=== PATIENT | female | born 1955 | race Caucasian/White ===

== ENCOUNTER 2016-06-12 16:32 | Emergency (ER) | payer SELFPAY ==
[2016-06-12 16:48] VITALS: BP 177/90
--- NOTE | 2016-06-12 17:38 | ER Document Report ---
ED Medical Screen (RME) - General Chief Complaint: Shoulder Pain Stated Complaint: LEFT SHOULDER PAIN Mode of Arrival: Ambulatory Information source: Patient Notes: Patient presents complaining of left shoulder and neck pain for the past 3 days. Patient denies any injury. Patient denies any chest pain, back pain or other symptoms. Patient denies any aggravating or alleviating factors. hx: Hypertension, gastric bypass TRAVEL OUTSIDE OF THE [place] IN LAST 30 DAYS: No - Related Data Allergies/Adverse Reactions: codeine [Codeine] Allergy (Verified 06/22/15 21:07) Penicillins Allergy (Verified 06/22/15 21:07) Past Medical History - Past Medical History Cardiac Medical History: Reports: Hx Hypertension Denies: Hx Congestive Heart Failure, Hx Coronary Artery Disease Renal/ Medical History: Reports: Hx Renal Insufficiency GI Medical History: Reports: Hx Diverticulitis - Treated at a hospital in [place], [place] last year Musculoskeltal Medical History: Reports Hx Musculoskeletal Trauma Psychiatric Medical History: Reports: Hx Anxiety, Hx Attention Deficit Hyperactivity Disorder, Hx Depression Past Surgical History: Reports: Hx Breast Surgery, Hx Cholecystectomy, Hx Gastric Bypass Surgery - Immunizations Immunizations up to date: No Hx Diphtheria, Pertussis, Tetanus Vaccination: No Physical Exam - Vital signs Vitals: Temp Pulse Resp BP Pulse Ox 97.3 F 122 H 18 177/90 H 98 06/12/16 16:46 06/12/16 16:46 06/12/16 16:46 06/12/16 16:46 06/12/16 16:46 - Cardiovascular Rhythm: Tachycardia Heart sounds: S1 appreciated, S2 appreciated Course - Vital Signs Vital signs: Temp Pulse Resp BP Pulse Ox 97.3 F 122 H 18 177/90 H 98 06/12/16 16:46 06/12/16 16:46 06/12/16 16:46 06/12/16 16:46 06/12/16 16:46
[2016-06-12 18:37] LABS: ABSOLUTE BASOPHILS # (AUTO) 0.1 10^3/uL (0.0-0.2); ABSOLUTE EOSINOPHILS # (AUTO) 0.1 10^3/uL (0.0-0.6); ABSOLUTE LYMPHOCYTES (AUTO) 2.4 10^3/uL (0.5-4.7); ABSOLUTE MONOCYTES (AUTO) 0.8 10^3/uL (0.1-1.4); ABSOLUTE NEUT (AUTO) 7.3 10^3/uL (1.7-8.2); BASOPHILS % (AUTO) 0.6 % (0-2); EOSINOPHILS % (AUTO) 1.2 % (0-6); HEMATOCRIT 41.7 % (36.0-47.0); HEMOGLOBIN 14.5 g/dL (12.0-15.5); HGB HCT DIFFERENCE 1.8; LYMPHOCYTES % (AUTO) 22.7 % (13-45); MEAN CORPUSCULAR HEMOGLOBIN 29.2 pg (27.0-33.4); MEAN CORPUSCULAR HGB CONC 34.7 g/dL (32.0-36.0); MEAN CORPUSCULAR VOLUME 84 fl (80-97); MONOCYTES % (AUTO) 7.2 % (3-13); RED BLOOD COUNT 4.96 10^6/uL (3.72-5.28); RED CELL DISTRIBUTION WIDTH 13.7 % (11.5-14.0); SEGMENTED NEUTROPHILS % (AUTO) 68.3 % (42-78); WHITE BLOOD COUNT 10.7 10^3/uL (4.0-10.5)
[2016-06-12 18:53] LABS: APPEARANCE,URINE SLIGHTLY-CLOUDY; BILIRUBIN,URINE NEGATIVE (NEGATIVE); GLUCOSE, URINE NEGATIVE (NEGATIVE); KETONES,URINE NEGATIVE (NEGATIVE); LEUKOCYTE ESTERASE,URINE TRACE (NEGATIVE); NITRITE,URINE NEGATIVE (NEGATIVE); PROTEIN,URINE 30 mg/dL (NEGATIVE); URINE SPECIFIC GRAVITY 1.015
[2016-06-12 19:00] LABS: ALANINE AMINOTRANSFERASE 90 U/L (9-52); ALBUMIN 4.5 g/dL (3.5-5.0); ALKALINE PHOSPHATASE 224 U/L (38-126); ANION GAP 16 (5-19); ASPARTATE AMINO TRANSFERASE 142 U/L (14-36); BILIRUBIN,TOTAL 1.6 mg/dL (0.2-1.3); BLOOD UREA NITROGEN 10 mg/dL (7-20); CALCIUM 10.2 mg/dL (8.4-10.2); CARBON DIOXIDE 30 mmol/L (22-30); CHLORIDE 97 mmol/L (98-107); CREATINE KINASE 40 U/L (30-135); CREATININE RESULT 1.25 mg/dL (0.52-1.25); GLUCOSE 125 mg/dL (75-110); MAGNESIUM 1.8 mg/dL (1.6-2.3); POTASSIUM 3.4 mmol/L (3.6-5.0); SODIUM 142.7 mmol/L (137-145); TOTAL PROTEIN 7.6 g/dL (6.3-8.2)
[2016-06-12 19:08] LABS: URINE BARBITURATES SCREEN NEGATIVE; URINE METHADONE SCREEN NEGATIVE; URINE PHENCYCLIDINE SCREEN NEGATIVE
[2016-06-12 19:18] LABS: CREATINE KINASE MB < 0.22 ng/mL (<4.55); TROPONIN I < 0.012 ng/mL
[2016-06-12 21:47] LABS: ADD ON TESTING BLD IN LAB ACKNOWLEDGE
[2016-06-12 22:00] LABS: LIPASE 15.4 U/L (23-300)
== END 2016-06-12 19:57 | disposition left against medical advice (07) ==
LOC: ER 16:32
DX: M25.512 Pain in left shoulder (principal); M54.2 Cervicalgia; I10 Essential (primary) hypertension; Z88.5 Allergy status to narcotic agent; Z88.0 Allergy status to penicillin; Z98.84 Bariatric surgery status; Z53.20 Procedure and treatment not carried out because of patient's decision for unspecified reasons
CPT/HCPCS: 99284; 36415; 82553; 82550; 83690; 83735; 84443; 85025; 80053; 81001; 84484; 71020; G0479; 80307

== ENCOUNTER 2017-08-22 08:25 | Emergency (ER) | payer SELFPAY ==
[2017-08-22] MEDS ORDERED: ATENOLOL 50 MG TABLET PO ONE (09:14)
--- NOTE | 2017-08-22 09:21 | ER Document Report ---
ED Foreign Body - General Chief Complaint: Foreign Body in Ear Stated Complaint: FOREIGN OBJECT IN EAR Time Seen by Provider: 08/22/17 09:13 Notes: The patient is a 62-year-old female, past medical history hypertension (out of her atenolol for months), presents with a bug in her left ear that she noticed crawling in last night. She denies any other symptoms. TRAVEL OUTSIDE OF THE [place] IN LAST 30 DAYS: No - Related Data Allergies/Adverse Reactions: codeine [Codeine] Allergy (Verified 08/22/17 08:28) Penicillins Allergy (Verified 08/22/17 08:28) Past Medical History - General Information source: Patient - Social History Smoking Status: Never Smoker Frequency of alcohol use: None Drug Abuse: None Family History: CAD, CVA, DM, Hyperlipidemia, Hypertension, Malignancy Patient has suicidal ideation: No Patient has homicidal ideation: No - Past Medical History Cardiac Medical History: Reports: Hx Hypertension Denies: Hx Congestive Heart Failure, Hx Coronary Artery Disease Renal/ Medical History: Reports: Hx Renal Insufficiency. Denies: Hx Peritoneal Dialysis GI Medical History: Reports: Hx Diverticulitis - Treated at a hospital in [place], [place] last year Musculoskeltal Medical History: Reports Hx Musculoskeletal Trauma Psychiatric Medical History: Reports: Hx Anxiety, Hx Attention Deficit Hyperactivity Disorder, Hx Depression Past Surgical History: Reports: Hx Abdominal Surgery - gastric bypass, Hx Breast Surgery - reduction, Hx Cholecystectomy, Hx Gastric Bypass Surgery - Immunizations Immunizations up to date: No Hx Diphtheria, Pertussis, Tetanus Vaccination: No Review of Systems - Review of Systems Notes: REVIEW OF SYSTEMS: CONSTITUTIONAL: -fevers, -chills EENT: +bug in left ear, -eye pain, -difficulty swallowing, -nasal congestion CARDIOVASCULAR: -chest pain, -syncope. RESPIRATORY: -cough, -SOB GASTROINTESTINAL: -abdominal pain, -nausea, -vomiting, -diarrhea GENITOURINARY: -dysuria, -hematuria MUSCULOSKELETAL: -back pain, -neck pain SKIN: -rash or skin lesions. HEMATOLOGIC: -easy bruising or bleeding. LYMPHATIC: -swollen, enlarged glands. NEUROLOGICAL: -altered mental status or loss of consciousness, -headache, - neurologic symptoms PSYCHIATRIC: -anxiety, -depression. ALL OTHER SYSTEMS REVIEWED AND NEGATIVE. Physical Exam - Vital signs Vitals: Temp Pulse BP Pulse Ox 97.7 F 100 199/128 H 95 03/13/18 08:29 08/22/17 08:29 08/22/17 08:29 08/22/17 08:29 - Notes Notes: PHYSICAL EXAMINATION: GENERAL: Well-appearing, well-nourished and in no acute distress. HEAD: Atraumatic, normocephalic. EYES: Pupils equal round and reactive to light, extraocular movements intact, sclera anicteric, conjunctiva are normal. Bug in left ear, no erythema of canal. ENT: nares patent, oropharynx clear without exudates. Moist mucous membranes. NECK: Normal range of motion, supple without lymphadenopathy LUNGS: Breath sounds clear to auscultation bilaterally and equal. No wheezes rales or rhonchi. HEART: Regular rate and rhythm without murmurs ABDOMEN: Soft, nontender, normoactive bowel sounds. No guarding, no rebound. No masses appreciated. EXTREMITIES: Normal range of motion, no pitting or edema. No cyanosis. NEUROLOGICAL: Cranial nerves grossly intact. Normal speech, normal gait. Normal sensory and motor exams. PSYCH: Normal mood, normal affect. SKIN: Warm, Dry, normal turgor, no rashes or lesions noted. Course - Re-evaluation Re-evalutation: Pt with asymptomatic hypertension from not taking her atenolol. Provide her with a refill of her atenolol and instructions to follow-up with primary care physician or [facility]. Large cuadra removed from her left ear without complications. PROCEDURE NOTE: Cuadra removed successfully from left ear using suction and alligator forceps. No cpmlications. TM remained intact. - Vital Signs Vital signs: Temp Pulse Resp BP Pulse Ox 97.7 F 100 191/130 H 95 08/22/17 08:29 08/22/17 08:29 08/22/17 08:32 08/22/17 08:29 Discharge - Discharge Clinical Impression: Asymptomatic hypertension Foreign body of ear, left Qualifiers: Encounter type: initial encounter Qualified Code(s): T16.2XXA - Foreign body in left ear, initial encounter Condition: Stable Disposition: HOME, SELF-CARE Additional Instructions: Take your atenolol as directed and follow-up with the primary care physician to see if you need any adjustments. HIGH BLOOD PRESSURE REQUIRING TREATMENT: Your blood pressure is high. This is called "hypertension." Your history and exam suggest that this is not a temporary problem. You need treatment of your blood pressure. If left untreated, high blood pressure greatly increases your risk of heart attack and stroke. Please don't ignore this problem. If you have blood pressure medicine but aren't using it regularly, start taking it again. Some simple things you can do to help are: Get some aerobic exercise for at least 20 minutes on a daily basis. (See your doctor before beginning any new exercise program.) Eat a low-fat diet. Lose excess weight. Avoid salty foods and avoid adding salt to any of the foods you eat. Avoid diet pills, decongestants, "energizing" herbs, and other medicines that elevate blood pressure. There are many different medicines that treat blood pressure. If your medication causes unpleasant side effects, call your doctor. There are others you can try. Treating hypertension is a life-long investment in your health. BETA BLOCKERS: You have been given a prescription for a beta-emir medication. This class of drugs is used for many purposes, including angina, high blood pressure , heart rhythm disturbances, tremors, and migraines. The medication works by interfering with the effects of the sympathetic nervous system (the sympathetic system has adrenaline-like effects of constricting blood vessels, increasing heart rate, and increasing blood pressure). This medication is usually well-tolerated. However, some patients have side effects such as fatigue, depression, or dizziness. Persons with asthma may develop wheezing from this medicine. Contact your doctor if you are bothered by any side effects. Do not take any cold or allergy medication without first consulting your doctor. Do not stop the medicine without consulting your doctor, as a "rebound " worsening of your condition can result. FOLLOW-UP CARE: If you have been referred to a physician for follow-up care, call the physician s office for an appointment as you were instructed or within the next two days. If you experience worsening or a significant change in your symptoms, notify the physician immediately or return to the Emergency Department at any time for re-evaluation. Prescriptions: Atenolol 50 mg PO DAILY #30 tablet Forms: Elevated Blood Pressure Referrals: KENDALL LUCIANO MD [ACTIVE STAFF] - Follow up as needed
[2017-08-22 09:54] VITALS: BP 166/108
== END 2017-08-22 09:54 | disposition home or self-care (01) ==
LOC: ER 08:25
DX: T16.2XXA Foreign body in left ear, initial encounter (principal); X58.XXXA Exposure to other specified factors, initial encounter; I10 Essential (primary) hypertension; T44.7X6A Underdosing of beta-adrenoreceptor antagonists, initial encounter; Z91.128 Patient's intentional underdosing of medication regimen for other reason; Z91.14 Patient's other noncompliance with medication regimen; Z88.5 Allergy status to narcotic agent; Z88.0 Allergy status to penicillin
CPT/HCPCS: 99282

== ENCOUNTER 2017-10-22 14:31 | Emergency (ER) | payer SELFPAY ==
[2017-10-22] MEDS ORDERED: ONDANSETRON HCL INJ/PF 4 MG/2 ML SDV IV ONE (14:52)
[2017-10-22] MEDS ORDERED: FENTANYL CITRATE INJ/PF 100 MCG/2 ML AMPUL IV ONE (14:52)
[2017-10-22] MEDS ORDERED: RINGERS SOLUTION,LACTATED 1,000 ML IV ONE (14:53)
--- NOTE | 2017-10-22 14:54 | ER Document Report ---
ED Medical Screen (RME) - General Chief Complaint: Abdominal Pain Stated Complaint: STOMACH PAIN Time Seen by Provider: 10/22/17 14:49 Notes: RAPID MEDICAL EVALUATION DISCLOSURE I have seen this patient as part of a Rapid Medical Evaluation and, if applicable, placed any initially appropriate orders. The patient will be seen and fully evaluated, including a full history and physical exam, by a provider ( in Main ED or Fast Track) when a room becomes available. 62-year-old female PMH diverticulitis here with complaints of left lower quadrant abdominal pain that started this morning and has progressively worsened. She has not tried taking anything for the symptoms. Denies nausea vomiting diarrhea fevers chills dysuria. States it feels like previous episodes of diverticulitis. EXAM Mildly tachycardic Mild diffuse abdominal tenderness TRAVEL OUTSIDE OF THE [place] IN LAST 30 DAYS: No - Related Data Allergies/Adverse Reactions: codeine [Codeine] Allergy (Verified 08/22/17 08:28) Penicillins Allergy (Verified 08/22/17 08:28) Past Medical History - Past Medical History Cardiac Medical History: Reports: Hx Hypertension Denies: Hx Congestive Heart Failure, Hx Coronary Artery Disease Renal/ Medical History: Reports: Hx Renal Insufficiency. Denies: Hx Peritoneal Dialysis GI Medical History: Reports: Hx Diverticulitis - Treated at a hospital in [place], [place] last year Musculoskeltal Medical History: Reports Hx Musculoskeletal Trauma Psychiatric Medical History: Reports: Hx Anxiety, Hx Attention Deficit Hyperactivity Disorder, Hx Depression Past Surgical History: Reports: Hx Abdominal Surgery - gastric bypass, Hx Breast Surgery - reduction, Hx Cholecystectomy, Hx Gastric Bypass Surgery - Immunizations Immunizations up to date: No Hx Diphtheria, Pertussis, Tetanus Vaccination: No Physical Exam - Vital signs Vitals: Temp Pulse Resp BP Pulse Ox 98.6 F 124 H 18 219/133 H 96 10/22/17 14:34 10/22/17 14:34 10/22/17 14:34 10/22/17 14:34 10/22/17 14:34 Course - Vital Signs Vital signs: Temp Pulse Resp BP Pulse Ox 98.6 F 124 H 18 219/133 H 96 10/22/17 14:34 10/22/17 14:34 10/22/17 14:34 10/22/17 14:34 10/22/17 14:34
[2017-10-22 15:59] LABS: ALANINE AMINOTRANSFERASE 49 U/L (9-52); ALBUMIN 4.2 g/dL (3.5-5.0); ALKALINE PHOSPHATASE 219 U/L (38-126); ANION GAP 12 (5-19); ASPARTATE AMINO TRANSFERASE 57 U/L (14-36); BILIRUBIN,DIRECT 0.7 mg/dL (0.0-0.4); BILIRUBIN,TOTAL 1.7 mg/dL (0.2-1.3); BLOOD UREA NITROGEN 12 mg/dL (7-20); CALCIUM 9.6 mg/dL (8.4-10.2); CARBON DIOXIDE 26 mmol/L (22-30); CHLORIDE 100 mmol/L (98-107); GLUCOSE 116 mg/dL (75-110); LIPASE 24.7 U/L (23-300); POTASSIUM 3.5 mmol/L (3.6-5.0)
[2017-10-22 16:01] LABS: ABSOLUTE BASOPHILS # (AUTO) 0.1 10^3/uL (0.0-0.2); ABSOLUTE EOSINOPHILS # (AUTO) 0.1 10^3/uL (0.0-0.6); ABSOLUTE LYMPHOCYTES (AUTO) 2.1 10^3/uL (0.5-4.7); ABSOLUTE MONOCYTES (AUTO) 1.2 10^3/uL (0.1-1.4); ABSOLUTE NEUT (AUTO) 12.4 10^3/uL (1.7-8.2); BASOPHILS % (AUTO) 0.3 % (0-2); EOSINOPHILS % (AUTO) 0.5 % (0-6); HEMATOCRIT 39.2 % (36.0-47.0); HEMOGLOBIN 13.3 g/dL (12.0-15.5); LYMPHOCYTES % (AUTO) 13.5 % (13-45); MEAN CORPUSCULAR HEMOGLOBIN 29.2 pg (27.0-33.4); MEAN CORPUSCULAR VOLUME 86 fl (80-97); MONOCYTES % (AUTO) 7.3 % (3-13); PLATELET COUNT 292 10^3/uL (150-450); RED BLOOD COUNT 4.56 10^6/uL (3.72-5.28); RED CELL DISTRIBUTION WIDTH 13.4 % (11.5-14.0); SEGMENTED NEUTROPHILS % (AUTO) 78.4 % (42-78); TOTAL CELLS COUNTED % (AUTO) 100 %; WHITE BLOOD COUNT 15.8 10^3/uL (4.0-10.5)
[2017-10-22] MEDS ORDERED: ATENOLOL 50 MG TABLET PO ONE (16:38)
--- NOTE | 2017-10-22 17:11 | RADIOLOGY REPORT (SQ) ---
EXAM DESCRIPTION: CT ABD/PELVIS WITH IV ONLY COMPLETED DATE/TIME: 10/22/2017 4:36 pm REASON FOR STUDY: LLQ abd pain COMPARISON: CT abdomen and pelvis 06/06/2014 TECHNIQUE: CT scan of the abdomen and pelvis performed using helical scanning technique with dynamic intravenous contrast injection. No oral contrast. Images reviewed with lung, soft tissue, and bone windows. Reconstructed coronal and sagittal MPR images reviewed. Delayed images for evaluation of the urinary system also acquired. All images stored on PACS. All CT scanners at this facility use dose modulation, iterative reconstruction, and/or weight based d osing when appropriate to reduce radiation dose to as low as reasonably achievable (ALARA). [facility]: Dose Right [facility]: CareDose [facility]: Dose Right [facility]: Teradose 4D [facility]: BEW Global CONTRAST TYPE AND DOSE: 100 mL Isovue 370- low osmolar. RENAL FUNCTION: Creatinine 1.1 RADIATION DOSE: . LIMITATIONS: None. FINDINGS: LOWER CHEST: No consolidation or pleural effusion. There is a small hiatal hernia. LIVER: There is diffuse decreased attenuation at the liver, most consistent with fatty infiltration. There is an elongated left hepatic lobe extending anterior to the stomach. No masses. No dilated du cts. SPLEEN: The spleen is mildly enlarged measuring 14.4 cm. No focal lesions. PANCREAS: No significant calcifications. No adjacent inflammation or peripancreatic fluid collections . Pancreatic duct not dilated. GALLBLADDER: Surgically absent. ADRENAL GLANDS: No significant masses or asymmetry. RIGHT KIDNEY AND URETER: No significant calcifications. No hydronephrosis or hydroureter. LEFT KIDNEY AND URETER: There is a 1.3 cm cyst at the inferior pole of the left kidney. No signific ant calcifications. No hydronephrosis or hydroureter. AORTA AND VESSELS: No abdominal aortic aneurysm. Renal arteries, SMA, celiac without stenosis. RETROPERITONEUM: No retroperitoneal adenopathy, hemorrhage or masses. BOWEL AND PERITONEAL CAVITY: Postsurgical changes are seen at the stomach. No dilated bowel loops. There is colonic diverticulosis. There extensive inflammatory changes with wall thickening at the si gmoid. No free fluid or free air. APPENDIX: Normal. PELVIS: The uterus is present. Bilateral tubal ligation devices are noted. No free fluid. Normal bl adder. ABDOMINAL WALL: No hernias. BONES: No significant findings. IMPRESSION: 1. Colonic diverticulosis. Wall thickening with inflammatory changes at the sigmoid col on, most consistent with acute diverticulitis. Followup colonoscopy after treatment recommended to e xclude underlying neoplasm. 2. Small hiatal hernia. 3. Fatty infiltration of the liver. 4. Mild splenomegaly. TECHNICAL DOCUMENTATION: JOB ID: [id number] SD- Quality ID # [id number]: Final reports with documentation of one or more dose reduction techniques (e.g., Au tomated exposure control, adjustment of the mA and/or kV according to patient size, use of iterative reconstruction technique) 2010 [employer]- All Rights Reserved Reading location - IP/workstation name: [email or web address]
[2017-10-22] MEDS ORDERED: ONDANSETRON 4 MG TAB.RAPDIS PO ONE (17:27)
[2017-10-22] MEDS ORDERED: METRONIDAZOLE 500 MG TABLET PO ONE (17:27)
[2017-10-22] MEDS ORDERED: CIPROFLOXACIN HCL 500 MG TABLET PO ONE (17:27)
[2017-10-22] MEDS ORDERED: KETOROLAC TROMETHAMINE INJ/PF 30 MG/1 ML SDV IV ONE (17:28)
--- NOTE | 2017-10-22 17:33 | ER Document Report ---
ED GI/ - General Chief Complaint: Abdominal Pain Stated Complaint: STOMACH PAIN Time Seen by Provider: 10/22/17 14:49 Notes: Patient is a 62-year-old female presents emergency room with a chief complaint of abdominal pain. Patient states that it started this morning. She denies any fevers or chills, nausea vomiting, diarrhea because patient. Patient is to her last bowel movement was yesterday. She denies any bright red blood per rectum or melena. She states that she is generalized abdominal discomfort. States that this is consistent with her previous presentation of diverticulitis. Patient states that she has been tolerating p.o. without any difficulty. She denies any focal abdominal tenderness. Patient has a history of hypertension, depression anxiety. Patient does not have primary care in the area. Patient states she did run out of her atenolol recently TRAVEL OUTSIDE OF THE [place] IN LAST 30 DAYS: No - Related Data Allergies/Adverse Reactions: codeine [Codeine] Allergy (Verified 08/22/17 08:28) Penicillins Allergy (Verified 08/22/17 08:28) Past Medical History - Social History Smoking Status: Former Smoker Chew tobacco use (# tins/day): No Frequency of alcohol use: None Drug Abuse: None Family History: CAD, CVA, DM, Hyperlipidemia, Hypertension, Malignancy Patient has suicidal ideation: No Patient has homicidal ideation: No - Past Medical History Cardiac Medical History: Reports: Hx Hypertension Denies: Hx Congestive Heart Failure, Hx Coronary Artery Disease Renal/ Medical History: Reports: Hx Renal Insufficiency. Denies: Hx Peritoneal Dialysis GI Medical History: Reports: Hx Diverticulitis - Treated at a hospital in [place], [place] last year Musculoskeltal Medical History: Reports Hx Musculoskeletal Trauma Psychiatric Medical History: Reports: Hx Anxiety, Hx Attention Deficit Hyperactivity Disorder, Hx Depression Past Surgical History: Reports: Hx Abdominal Surgery - gastric bypass, Hx Breast Surgery - reduction, Hx Cholecystectomy, Hx Gastric Bypass Surgery - Immunizations Immunizations up to date: No Hx Diphtheria, Pertussis, Tetanus Vaccination: No Review of Systems - Review of Systems Constitutional: No symptoms reported Cardiovascular: No symptoms reported Respiratory: No symptoms reported Gastrointestinal: See HPI Genitourinary: No symptoms reported Musculoskeletal: No symptoms reported Neurological/Psychological: No symptoms reported -: Yes All other systems reviewed and negative Physical Exam - Vital signs Vitals: Temp Pulse Resp BP Pulse Ox 98.6 F 124 H 18 219/133 H 96 10/22/17 14:34 10/22/17 14:34 10/22/17 14:34 10/22/17 14:34 10/22/17 14:34 - Notes Notes: PHYSICAL EXAM GENERAL: Alert, interacts well. HEAD: Normocephalic, atraumatic. EYES: Pupils equal, round, and reactive to light. Extraocular movements intact. ENT: Oral mucosa moist, tongue midline. NECK: Full range of motion. Supple. Trachea midline. LUNGS: Clear to auscultation bilaterally, no wheezes, rales, or rhonchi. No respiratory distress. HEART: Regular rate and rhythm. No murmurs, gallops, or rubs. ABDOMEN: Soft, nondistended, mild to moderate left lower quadrant tenderness. No guarding, rebound, or rigidity.. Bowel sounds present in all 4 quadrants. EXTREMITIES: Moves all 4 extremities spontaneously. No edema, radial and dorsalis pedis pulses 2/4 bilaterally. No cyanosis. NEUROLOGICAL: Alert and oriented x4. Normal speech. PSYCH: Normal affect, normal mood. SKIN: Warm, dry, normal turgor. No rashes or lesions noted. Course - Re-evaluation Re-evalutation: 10/22/17 17:29 Patient is a 62-year-old female is hemodynamically stable, no acute distress and afebrile. Pain is been well-controlled emergency department tolerating p.o. without any difficulty. Patient vital signs stable. Leukocytosis of 15.8 with left shift, no evidence of new hepatic abnormalities in her lab test. This is consistent with her baseline of previous presentations. Reviewed the CT scan shows left colon diverticulitis without any evidence of abscess, perforation. Will discharge patient home given patient pain under control, tolerating p.o. No concern for sepsis this time. Did review with strict return precautions and follow-up instructions. Patient agrees with plan stable for discharge - Vital Signs Vital signs: Temp Pulse Resp BP Pulse Ox 98.3 F 98 18 133/54 H 98 10/22/17 18:45 10/22/17 18:45 10/22/17 18:45 10/22/17 18:45 10/22/17 18:45 - Laboratory Result Diagrams: 10/22/17 15:20 10/22/17 15:20 Laboratory results interpreted by me: 10/22/17 10/22/17 10/22/17 15:20 15:20 16:51 WBC 15.8 H Seg Neutrophils % 78.4 H Absolute Neutrophils 12.4 H Potassium 3.5 L Est GFR (Non-Af Amer) 50 L Glucose 116 H Lactic Acid 0.6 L Total Bilirubin 1.7 H Direct Bilirubin 0.7 H AST 57 H Alkaline Phosphatase 219 H - Diagnostic Test Radiology reviewed: Image reviewed, Reports reviewed Discharge - Discharge Clinical Impression: Diverticulitis Hypertension Qualifiers: Hypertension type: unspecified Qualified Code(s): I10 - Essential (primary) hypertension Condition: Good Disposition: HOME, SELF-CARE Additional Instructions: You were seen today for focal pain in your left lower quadrant. Your labs, exam , and imaging suggest a diagnosis of diverticulitis. This is an inflammation of a part of your colon. You are being started on antibiotics to treat this infection and inflammation. Please take all of them as directed and complete them even if your symptoms resolve. Please follow-up with your primary care physician within the next 48 hours. Return to the emergency department immediately if you develop worsening pain, persistent vomiting, began having bloody stools, develop a fever of greater than 101F, or have any other symptoms that are concerning to you. Prescriptions: Atenolol 50 mg PO DAILY #30 tablet Ciprofloxacin HCl [Cipro 500 mg Tablet] 500 mg PO BID #20 tablet Metoclopramide HCl [Reglan 10 mg Tablet] 1 - 2 tab PO ASDIR PRN #25 tablet PRN Reason: Metronidazole [Flagyl 500 mg Tablet] 500 mg PO TID #30 tablet Naproxen 375 mg PO BID #20 tablet Forms: Elevated Blood Pressure Referrals: [facility] [Provider Group] - Follow up in 3-5 days
[2017-10-22 18:47] VITALS: BP 133/54
== END 2017-10-22 18:45 | disposition home or self-care (01) ==
LOC: ER 14:31
DX: K57.92 Diverticulitis of intestine, part unspecified, without perforation or abscess without bleeding (principal); R10.84 Generalized abdominal pain; I10 Essential (primary) hypertension; Z88.6 Allergy status to analgesic agent; Z88.0 Allergy status to penicillin; Z98.84 Bariatric surgery status
CPT/HCPCS: 99284; 96361; 96374; 96375; 36415; 83605; 83690; 85025; 80053; 74177; S0119; J3010; J1885; J2405; J7120

== ENCOUNTER 2018-01-07 19:05 | Emergency (ER) | payer MEDICAID ==
--- NOTE | 2018-01-07 19:24 | ER Document Report ---
ED Medical Screen (RME) - General Chief Complaint: Lower Abdominal Pain Stated Complaint: VAGINAL PAIN Time Seen by Provider: 01/07/18 19:17 Mode of Arrival: Ambulatory Information source: Patient Notes: This is a 62-year-old female with a history of hypertension and depression who presents to the emergency room with "pain in the female organs". Patient does note some vaginal bleeding a few days ago but has not had any bleeding today. Patient denies any vaginal discharge. Patient denies any extruding masses. Past surgical history: Cholecystectomy, gastric stapling, bilateral tubal ligation TRAVEL OUTSIDE OF THE [place] IN LAST 30 DAYS: No - Related Data Allergies/Adverse Reactions: codeine [Codeine] Allergy (Verified 01/07/18 19:18) Penicillins Allergy (Verified 01/07/18 19:18) Past Medical History - Social History Chew tobacco use (# tins/day): No Frequency of alcohol use: None Drug Abuse: None - Past Medical History Cardiac Medical History: Reports: Hx Hypertension Denies: Hx Congestive Heart Failure, Hx Coronary Artery Disease Renal/ Medical History: Reports: Hx Renal Insufficiency. Denies: Hx Peritoneal Dialysis GI Medical History: Reports: Hx Diverticulitis - Treated at a hospital in [place], [place] last year Musculoskeltal Medical History: Reports Hx Musculoskeletal Trauma Psychiatric Medical History: Reports: Hx Anxiety, Hx Attention Deficit Hyperactivity Disorder, Hx Depression Past Surgical History: Reports: Hx Abdominal Surgery - gastric bypass, Hx Breast Surgery - reduction, Hx Cholecystectomy, Hx Gastric Bypass Surgery - Immunizations Immunizations up to date: No Hx Diphtheria, Pertussis, Tetanus Vaccination: No Physical Exam - Vital signs Vitals: Temp Pulse Resp BP Pulse Ox 98.1 F 119 H 18 198/125 H 96 01/07/18 19:11 01/07/18 19:11 01/07/18 19:11 01/07/18 19:11 01/07/18 19:11 Course - Vital Signs Vital signs: Temp Pulse Resp BP Pulse Ox 98.1 F 119 H 18 198/125 H 96 01/07/18 19:11 01/07/18 19:11 01/07/18 19:11 01/07/18 19:11 01/07/18 19:11
[2018-01-07 19:48] LABS: ABSOLUTE BASOPHILS # (AUTO) 0.1 10^3/uL (0.0-0.2); ABSOLUTE EOSINOPHILS # (AUTO) 0.1 10^3/uL (0.0-0.6); ABSOLUTE LYMPHOCYTES (AUTO) 2.4 10^3/uL (0.5-4.7); ABSOLUTE MONOCYTES (AUTO) 0.8 10^3/uL (0.1-1.4); ABSOLUTE NEUT (AUTO) 10.1 10^3/uL (1.7-8.2); BASOPHILS % (AUTO) 0.6 % (0-2); EOSINOPHILS % (AUTO) 0.9 % (0-6); HEMATOCRIT 40.8 % (36.0-47.0); MEAN CORPUSCULAR HEMOGLOBIN 29.1 pg (27.0-33.4); MEAN CORPUSCULAR HGB CONC 34.4 g/dL (32.0-36.0); MEAN CORPUSCULAR VOLUME 85 fl (80-97); MONOCYTES % (AUTO) 5.8 % (3-13); PLATELET COUNT 280 10^3/uL (150-450); RED BLOOD COUNT 4.81 10^6/uL (3.72-5.28); RED CELL DISTRIBUTION WIDTH 13.7 % (11.5-14.0); SEGMENTED NEUTROPHILS % (AUTO) 74.7 % (42-78); TOTAL CELLS COUNTED % (AUTO) 100 %; WHITE BLOOD COUNT 13.5 10^3/uL (4.0-10.5)
[2018-01-07] MEDS ORDERED: NORMAL SALINE 1000 ML 1,000 ML IV ONE ×2 (20:08→22:43)
[2018-01-07] MEDS ORDERED: METOPROLOL TARTRATE PF/INJ 5 MG/5 ML SDV IV ONE (20:08)
[2018-01-07] MEDS ORDERED: ONDANSETRON HCL INJ/PF 4 MG/2 ML SDV IV ONE ×2 (20:09→23:42)
[2018-01-07] MEDS ORDERED: MORPHINE SULFATE 10 MG/ML INJ IV ONE ×2 (20:09→23:42)
--- NOTE | 2018-01-07 20:09 | ER Document Report ---
ED General - General Mode of Arrival: Ambulatory Information source: Patient TRAVEL OUTSIDE OF THE U.S. IN LAST 30 DAYS: No <ALICE VÁZQUEZ - Last Filed: 01/07/18 22:31> <SANIYA MORTENSEN - Last Filed: 01/08/18 02:38> - General Chief Complaint: Lower Abdominal Pain Stated Complaint: VAGINAL PAIN Time Seen by Provider: 01/07/18 19:17 Notes: Mrs Mackey is a 62 y.o female with HTN, anxiety, ADHD, depression, renal insufficiency and a PSHx of gastric bypass, breast reduction and cholecystectomy. She presents to the ED with LT lower abd pain of onset yesterday and worsening about 5 hours ago. Pt was seen here and diagnosed with diverticulitis to her sigmoid colon on Oct 24 2017. She reports that her pain may be similar to when she had diverticulitis but that she has tried to forget about that pain. Pt reports her last BM was yesterday and was normal. She denies any fever. Pt reports that she recently ran out of her BP medication 2 days ago. She reports that she normally takes Atenolol 50mg once a day. (ALICE VÁZQUEZ) - Related Data Allergies/Adverse Reactions: codeine [Codeine] Allergy (Verified 01/07/18 19:18) Penicillins Allergy (Verified 01/07/18 19:18) Past Medical History - General Information source: Patient - Social History Smoking Status: Former Smoker - quit 23 years ago, but yolanda is a heavy smoker Chew tobacco use (# tins/day): No Frequency of alcohol use: None Drug Abuse: None Family History: CAD, CVA, DM, Hyperlipidemia, Hypertension, Malignancy Patient has suicidal ideation: No Patient has homicidal ideation: No - Past Medical History Cardiac Medical History: Reports: Hx Hypertension Denies: Hx Congestive Heart Failure, Hx Coronary Artery Disease Renal/ Medical History: Reports: Hx Renal Insufficiency. Denies: Hx Peritoneal Dialysis GI Medical History: Reports: Hx Diverticulitis - Treated at a hospital in [place], [place] last year Musculoskeletal Medical History: Reports Hx Musculoskeletal Trauma Psychiatric Medical History: Reports: Hx Anxiety, Hx Attention Deficit Hyperactivity Disorder, Hx Depression Past Surgical History: Reports: Hx Abdominal Surgery - gastric bypass, Hx Breast Surgery - reduction, Hx Cholecystectomy, Hx Gastric Bypass Surgery - Immunizations Immunizations up to date: No Hx Diphtheria, Pertussis, Tetanus Vaccination: No <ALICE VÁZQUEZ - Last Filed: 01/07/18 22:31> Review of Systems - Review of Systems Constitutional: denies: Fever EENT: No symptoms reported Cardiovascular: No symptoms reported Respiratory: No symptoms reported Gastrointestinal: See HPI, Abdominal pain. denies: Diarrhea, Constipation Genitourinary: No symptoms reported Female Genitourinary: No symptoms reported Musculoskeletal: No symptoms reported Skin: No symptoms reported Hematologic/Lymphatic: No symptoms reported Neurological/Psychological: No symptoms reported -: Yes All other systems reviewed and negative <ALICE VÁZQUEZ - Last Filed: 01/07/18 22:31> Physical Exam <ALICE VÁZQUEZ - Last Filed: 01/07/18 22:31> <SANIYA MORTENSEN - Last Filed: 01/08/18 02:38> - Vital signs Vitals: Temp Pulse Resp BP Pulse Ox 98.1 F 119 H 18 198/125 H 96 01/07/18 19:11 01/07/18 19:11 01/07/18 19:11 01/07/18 19:11 01/07/18 19:11 - Notes Notes: Physical Exam: General: Alert, appears well. HEENT: Normocephalic. Atraumatic. PERRL. Extraocular movements intact. Oropharynx clear. Neck: Supple. Non-tender. Respiratory: No respiratory distress. Clear and equal breath sounds bilaterally. Cardiovascular: Regular rate and rhythm. Abdominal: Obese. Abd is soft. LLQ tenderness to palpation with guarding. Decreased bowel sounds. Back: Non-tender. No deformity or step off. Extremities: Moves all four extremities. Upper extremities: Normal inspection. Normal ROM. Lower extremities: Normal inspection. Normal ROM. 1+ pitting edema to lower extremities which she states is a chronic problem. Neurological: Normal cognition. AAOx3. Normal speech. Psychological: Normal affect. Normal Mood. Skin: Warm. Dry. Normal color. (ALICE VÁZQUEZ) Course - Laboratory Result Diagrams: 01/07/18 19:32 01/07/18 20:30 <ALICE VÁZQUEZ - Last Filed: 01/07/18 22:31> - Laboratory Result Diagrams: 01/07/18 19:32 01/07/18 20:30 - Diagnostic Test Radiology reviewed: Reports reviewed - Acute sigmoid diverticulitis without fluid collection or obstruction. <SANIYA MORTENSEN - Last Filed: 01/08/18 02:38> - Vital Signs Vital signs: Temp Pulse Resp BP Pulse Ox 99.2 F 110 H 20 175/94 H 95 01/08/18 00:30 01/07/18 21:20 01/08/18 02:08 01/08/18 02:08 01/08/18 02:08 - Laboratory Laboratory results interpreted by me: 01/07/18 01/07/18 19:32 20:30 WBC 13.5 H Absolute Neutrophils 10.1 H Est GFR (Non-Af Amer) 51 L AST 46 H Alkaline Phosphatase 266 H Discharge <ALICE VÁZQUEZ - Last Filed: 01/07/18 22:31> <SANIYA MORTENSEN - Last Filed: 01/08/18 02:38> - Discharge Clinical Impression: Diverticulitis of sigmoid colon, Has run out of medications High blood pressure Qualifiers: Hypertension type: essential hypertension Qualified Code(s): I10 - Essential ( primary) hypertension Condition: Stable Disposition: HOME, SELF-CARE Additional Instructions: Diverticulitis: You have been diagnosed as having diverticulitis. This is an inflammation of a small pouch attached to the colon, called a diverticulum. Many of these small pouches can form on the colon as you get older. They are often caused by constipation. When inflamed or infected, symptoms arise -- usually abdominal pain, constipation or diarrhea, fever, and blood in the stool. Severe diverticulitis may require hospitalization. More mild cases are usually treated with antibiotics and clear liquid diet. As you improve, a diet low in residue (one which forms little stool) is prescribed. When you are better, you should eat a high-fiber diet. Stool softeners ( like Metamucil) are usually recommended. Call the doctor or go to the hospital if there is increasing pain, vomiting , high fever, large amounts of blood passed, or if bowel movements cease. High Blood Pressure: When your blood pressure was taken today it was elevated. Some simple things you can do to help are: If you have blood pressure medicine but aren't using it regularly, start taking it again. Get some aerobic exercise for at least 20 minutes on a daily basis. (See your doctor before beginning a new exercise program.) Eat a low-fat diet. Lose excess weight. Avoid salty foods and avoid adding salt to any of the foods you eat. Avoid diet pills, decongestants, "energizing" herbs, and other medicines that elevate blood pressure. If left untreated, hypertension greatly enhances your risk for developing heart disease and strokes. Please don't ignore this problem. Take the medications as prescribed for the diverticulitis and your elevated blood pressure. Take Tylenol and ibuprofen or Aleve for pain. Follow-up with a local medical doctor to manage your high blood pressure. Follow-up with [facility] this week to re-evaluate your recurrent diverticulitis. RETURN TO THE EMERGENCY ROOM IF ANY NEW OR WORSENING SYMPTOMS. Prescriptions: Atenolol 50 mg PO BID #60 tablet Ciprofloxacin HCl [Cipro 500 mg Tablet] 500 mg PO BID #20 tablet Metronidazole [Flagyl 500 mg Tablet] 500 mg PO TID #30 tablet Referrals: [facility] [Provider Group] - Follow up in 3-5 days Scribe Attestation: 01/07/18 20:31 I personally performed the services described in the documentation, reviewed and edited the documentation which was dictated to the scribe in my presence, and it accurately records my words and actions. (SANIYA MORTENSEN) Scribe Documentation - Scribe Written by Michael:: Michael Bennett 01/07/18 2016 acting as scribe for :: Akanksha <ALICE VÁZQUEZ - Last Filed: 01/07/18 22:31>
[2018-01-07] MEDS ORDERED: METRONIDAZOLE 500 MG/NS RTU 500 MG/100 ML RTUPB IV ONE (20:12)
[2018-01-07] MEDS ORDERED: LEVOFLOXACIN 750 MG/D5W RTU 750 MG/150 ML RTUPB IV ONE (20:12)
--- NOTE | 2018-01-07 21:03 | RADIOLOGY REPORT (SQ) ---
EXAM DESCRIPTION: U/S NON-OB PELVIS TV W/O DOP COMPLETED DATE/TIME: 01/07/2018 8:39 pm REASON FOR STUDY: left pelvic pain COMPARISON: None. TECHNIQUE: Dynamic and static grayscale images acquired of the pelvis via transvaginal approach and recorded on PACS. Additional selected color Doppler and spectral images recorded. LIMITATIONS: None. FINDINGS: UTERUS: Contour normal. No mass. ENDOMETRIAL STRIPE: Heterogeneous thickening, 1.8 cm. CERVIX: No nabothian cysts. RIGHT OVARY AND DOPPLER: Ovary not visualized. LEFT OVARY AND DOPPLER: Ovary not visualized. FREE FLUID: None noted. OTHER: No other significant finding. MEASUREMENTS: UTERUS: 7 x 8 x 5 cm ENDOMETRIAL STRIPE: 1.8 cm RIGHT OVARY: Not visualized. LEFT OVARY: Not visualized. IMPRESSION: Heterogeneous endometrial thickening, 1.8 cm. TECHNICAL DOCUMENTATION: JOB ID: [id number] 2010 [employer]- All Rights Reserved Rev-10/27 Reading location - IP/workstation name: [email or web address]
[2018-01-07 21:04] LABS: ALANINE AMINOTRANSFERASE 38 U/L (9-52); ALBUMIN 4.1 g/dL (3.5-5.0); ALKALINE PHOSPHATASE 266 U/L (38-126); ANION GAP 11 (5-19); ASPARTATE AMINO TRANSFERASE 46 U/L (14-36); BILIRUBIN,DIRECT 0.4 mg/dL (0.0-0.4); BILIRUBIN,TOTAL 0.8 mg/dL (0.2-1.3); BLOOD UREA NITROGEN 18 mg/dL (7-20); CALCIUM 9.8 mg/dL (8.4-10.2); CARBON DIOXIDE 26 mmol/L (22-30); CHLORIDE 101 mmol/L (98-107); GLUCOSE 106 mg/dL (75-110); POTASSIUM 4.3 mmol/L (3.6-5.0); SODIUM 138.4 mmol/L (137-145); TOTAL PROTEIN 7.4 g/dL (6.3-8.2)
[2018-01-07 22:03] LABS: APPEARANCE,URINE CLEAR; BILIRUBIN,URINE NEGATIVE (NEGATIVE); COLOR,URINE STRAW; GLUCOSE, URINE NEGATIVE (NEGATIVE); KETONES,URINE NEGATIVE (NEGATIVE); LEUKOCYTE ESTERASE,URINE NEGATIVE (NEGATIVE); NITRITE,URINE NEGATIVE (NEGATIVE); PROTEIN,URINE NEGATIVE (NEGATIVE); URINE SPECIFIC GRAVITY 1.004; UROBILINOGEN,URINE NEGATIVE mg/dL (<2.0)
--- NOTE | 2018-01-07 22:13 | RADIOLOGY REPORT (SQ) ---
EXAM DESCRIPTION: CT ABD/PELVIS WITH IV ONLY COMPLETED DATE/TIME: 01/07/2018 9:49 pm REASON FOR STUDY: LLQ abd pain, recent sigmoid diverticlitits COMPARISON: 10/22/2017 TECHNIQUE: CT scan of the abdomen and pelvis performed using helical scanning technique with dynamic intravenous contrast injection. No oral contrast. Images reviewed with lung, soft tissue, and bone windows. Reconstructed coronal and sagittal MPR images reviewed. Delayed images for evaluation of the urinary system also acquired. All images stored on PACS. All CT scanners at this facility use dose modulation, iterative reconstruction, and/or weight based d osing when appropriate to reduce radiation dose to as low as reasonably achievable (ALARA). [facility]: Dose Right [facility]: CareDose [facility]: Dose Right [facility]: Teradose 4D [facility]: Gymbox CONTRAST TYPE AND DOSE: contrast/concentration: Isovue 370.00 mg/ml; Total Contrast Delivered: 99.0 ml; Total Saline Delivered: 72.0 ml RENAL FUNCTION: GFR > 60. RADIATION DOSE: CT Rad equipment meets quality standard of care and radiation dose reduction techniq ues were employed. CTDIvol: 19.4 - 20.7 mGy. DLP: 2203 mGy-cm.. LIMITATIONS: None. FINDINGS: LOWER CHEST: No acute findings. LIVER: Normal size. No masses. No dilated ducts. SPLEEN: Normal size. No focal lesions. PANCREAS: No masses. No significant calcifications. No adjacent inflammation or peripancreatic fluid collections. Pancreatic duct not dilated. GALLBLADDER: Surgically absent. ADRENAL GLANDS: No significant masses or asymmetry. RIGHT KIDNEY AND URETER: No solid masses. No significant calcifications. No hydronephrosis or hyd roureter. LEFT KIDNEY AND URETER: No solid masses. No significant calcifications. No hydronephrosis or hydr oureter. AORTA AND VESSELS: No aneurysm. No dissection. Renal arteries, SMA, celiac without stenosis. RETROPERITONEUM: No retroperitoneal adenopathy, hemorrhage or masses. BOWEL AND PERITONEAL CAVITY: Descending colon- Sigmoid junction inflammatory changes due to diverticu litis. No fluid collection or obstruction. . APPENDIX: Normal. PELVIS: No mass. No free fluid. Normal bladder. ABDOMINAL WALL: No masses. No hernias. BONES: No acute findings. OTHER: No other significant finding. IMPRESSION: Descending colon- Sigmoid junction inflammatory changes due to diverticulitis. No fluid collection or obstruction. TECHNICAL DOCUMENTATION: JOB ID: [id number] [place]-72 Quality ID # [id number]: Final reports with documentation of one or more dose reduction techniques (e.g., Au tomated exposure control, adjustment of the mA and/or kV according to patient size, use of iterative reconstruction technique) 2010 [employer]- All Rights Reserved Reading location - IP/workstation name: [email or web address]
[2018-01-08] MEDS ORDERED: METOPROLOL TARTRATE PF/INJ 5 MG/5 ML SDV IV ONE (00:32)
[2018-01-08] MEDS ORDERED: HYDROCODONE/ACETAMINOPHEN 5-325 MG (6 TAB/ER DISP) PO PRN (02:40)
[2018-01-08 02:57] VITALS: BP 165/94
== END 2018-01-08 02:57 | disposition home or self-care (01) ==
LOC: ER 19:05
DX: K57.32 Diverticulitis of large intestine without perforation or abscess without bleeding (principal); R10.32 Left lower quadrant pain; R60.0 Localized edema; I10 Essential (primary) hypertension; T44.7X6A Underdosing of beta-adrenoreceptor antagonists, initial encounter; Z91.128 Patient's intentional underdosing of medication regimen for other reason; Z91.14 Patient's other noncompliance with medication regimen; Z98.84 Bariatric surgery status; Z90.49 Acquired absence of other specified parts of digestive tract; Z88.0 Allergy status to penicillin; Z88.5 Allergy status to narcotic agent; Z87.891 Personal history of nicotine dependence
CPT/HCPCS: 96376; 99284; 96361; 96375; 96365; 96366; 96367; 36415; 87040; 85025; 80053; 81001; 76830; 74177; J3490 ×2; J2270; J2405; J7030; J1956

== ENCOUNTER 2018-01-10 10:52 | Emergency (ER) | payer MEDICAID ==
--- NOTE | 2018-01-10 11:40 | ER Document Report ---
ED Medical Screen (RME) - General Chief Complaint: Abdominal Pain Stated Complaint: STOMACH PAIN Time Seen by Provider: 01/10/18 11:39 TRAVEL OUTSIDE OF THE [place]. IN LAST 30 DAYS: No - HPI Patient complains to provider of: Failure of outpatient antibiotics worsening abdominal pain - Related Data Allergies/Adverse Reactions: codeine [Codeine] Allergy (Verified 01/10/18 10:56) Penicillins Allergy (Verified 01/10/18 10:56) Past Medical History - Past Medical History Cardiac Medical History: Reports: Hx Hypertension Denies: Hx Congestive Heart Failure, Hx Coronary Artery Disease Renal/ Medical History: Reports: Hx Renal Insufficiency. Denies: Hx Peritoneal Dialysis GI Medical History: Reports: Hx Diverticulitis - Treated at a hospital in [place], [place] last year Musculoskeltal Medical History: Reports Hx Musculoskeletal Trauma Psychiatric Medical History: Reports: Hx Anxiety, Hx Attention Deficit Hyperactivity Disorder, Hx Depression Past Surgical History: Reports: Hx Abdominal Surgery - gastric bypass, Hx Breast Surgery - reduction, Hx Cholecystectomy, Hx Gastric Bypass Surgery - Immunizations Immunizations up to date: No Hx Diphtheria, Pertussis, Tetanus Vaccination: No Physical Exam - Vital signs Vitals: Temp Pulse Resp BP Pulse Ox 98.4 F 75 14 155/85 H 95 01/10/18 10:57 01/10/18 10:57 01/10/18 10:57 01/10/18 10:57 01/10/18 10:57 Course - Re-evaluation Re-evalutation: 01/10/18 13:41 This 62-year-old woman presents after failing 3 days of outpatient p.o. antibiotics for her diverticulitis has increasing pain does have known diverticulitis concern for possible abscess. Abdomen is diffusely tender with some appreciable rebound left lower quadrant. We will plan for this patient to move forward for further investigation of possible worsening of her diverticulitis and consideration of admission. Will be transition to main emergency department - Vital Signs Vital signs: Temp Pulse Resp BP Pulse Ox 98.4 F 75 14 155/85 H 95 01/10/18 10:57 01/10/18 10:57 01/10/18 10:57 01/10/18 10:57 01/10/18 10:57 - Laboratory Result Diagrams: 01/10/18 12:26 01/10/18 12:26 Laboratory results interpreted by me: 01/10/18 12:26 Creatinine 1.34 H Est GFR ( Amer) 48 L Est GFR (Non-Af Amer) 40 L Total Bilirubin 1.8 H Direct Bilirubin 1.0 H AST 90 H ALT 96 H Alkaline Phosphatase 462 H Lipase 15.9 L
[2018-01-10] MEDS ORDERED: MORPHINE SULFATE 10 MG/ML INJ IV ONE ×2 (11:49→12:56)
[2018-01-10 12:41] LABS: ABSOLUTE BASOPHILS # (AUTO) 0.1 10^3/uL (0.0-0.2); ABSOLUTE EOSINOPHILS # (AUTO) 0.2 10^3/uL (0.0-0.6); ABSOLUTE LYMPHOCYTES (AUTO) 2.1 10^3/uL (0.5-4.7); ABSOLUTE MONOCYTES (AUTO) 0.6 10^3/uL (0.1-1.4); ABSOLUTE NEUT (AUTO) 7.4 10^3/uL (1.7-8.2); BASOPHILS % (AUTO) 0.8 % (0-2); EOSINOPHILS % (AUTO) 1.7 % (0-6); HEMATOCRIT 39.2 % (36.0-47.0); HEMOGLOBIN 13.4 g/dL (12.0-15.5); LYMPHOCYTES % (AUTO) 20.1 % (13-45); MEAN CORPUSCULAR HEMOGLOBIN 29.8 pg (27.0-33.4); MEAN CORPUSCULAR HGB CONC 34.2 g/dL (32.0-36.0); MEAN CORPUSCULAR VOLUME 87 fl (80-97); MONOCYTES % (AUTO) 5.8 % (3-13); PLATELET COUNT 295 10^3/uL (150-450); RED CELL DISTRIBUTION WIDTH 13.8 % (11.5-14.0); SEGMENTED NEUTROPHILS % (AUTO) 71.6 % (42-78); TOTAL CELLS COUNTED % (AUTO) 100 %; WHITE BLOOD COUNT 10.3 10^3/uL (4.0-10.5)
--- NOTE | 2018-01-10 12:41 | ER Document Report ---
ED General - General Chief Complaint: Abdominal Pain Stated Complaint: STOMACH PAIN Time Seen by Provider: 01/10/18 11:39 Mode of Arrival: Ambulatory Information source: Patient TRAVEL OUTSIDE OF THE [place] IN LAST 30 DAYS: No - HPI Notes: 62-year-old female with a medical history of hypertension, anxiety, depression, renal insufficiency, gastric bypass, cholecystectomy with complaints of lower abdominal pain, left greater than right, was diagnosed with diverticulitis in January 08, 2000 was discharged home with ciprofloxacin and Flagyl courses patient states that her pain today is become worse. Patient does not have a PCP to follow-up with. States pain is 8 out of 10, sharp constant and stabbing. Her last BM was 2 days ago which is normal for her. Denies fevers, chills, chest pain,palpitations, shortness of breath, dyspnea, nausea, vomiting, diarrhea, hematuria,blurred vision, double vision, loss of vision, speech changes, LH, dizziness, syncope, headaches, wheezing, ST, URI, neck pain, weakness, bowel or bladder dysfunction, saddle anesthesia, numbness or tingling in bilateral upper or lower extremities equally, muscle paralysis, weakness in bilateral upper or lower extremities equally or rash. Denies IV drug use. - Related Data Allergies/Adverse Reactions: codeine [Codeine] Allergy (Verified 01/10/18 10:56) Penicillins Allergy (Verified 01/10/18 10:56) Past Medical History - General Information source: Patient - Social History Smoking Status: Current Every Day Smoker Family History: CAD, CVA, DM, Hyperlipidemia, Hypertension, Malignancy Patient has suicidal ideation: No Patient has homicidal ideation: No - Past Medical History Cardiac Medical History: Reports: Hx Hypertension Denies: Hx Congestive Heart Failure, Hx Coronary Artery Disease Renal/ Medical History: Reports: Hx Renal Insufficiency. Denies: Hx Peritoneal Dialysis GI Medical History: Reports: Hx Diverticulitis - Treated at a hospital in [place], [place] last year Musculoskeletal Medical History: Reports Hx Musculoskeletal Trauma Psychiatric Medical History: Reports: Hx Anxiety, Hx Attention Deficit Hyperactivity Disorder, Hx Depression Past Surgical History: Reports: Hx Abdominal Surgery - gastric bypass, Hx Breast Surgery - reduction, Hx Cholecystectomy, Hx Gastric Bypass Surgery - Immunizations Immunizations up to date: No Hx Diphtheria, Pertussis, Tetanus Vaccination: No Review of Systems - Review of Systems Notes: PHYSICAL EXAMINATION: GENERAL: Well-appearing, well-nourished and in mild distress. HEAD: Atraumatic, normocephalic. EYES: Pupils equal round and reactive to light, extraocular movements intact, conjunctiva are normal. ENT: Nares patent, oropharynx clear without exudates. Moist mucous membranes. NECK: Normal range of motion, supple without lymphadenopathy LUNGS: Breath sounds clear to auscultation bilaterally and equal. No wheezes rales or rhonchi. HEART: Regular rate and rhythm without murmurs ABDOMEN: Soft, nontender, nondistended abdomen. No guarding, no rebound. No masses appreciated. Female : deferred Musculoskeletal: Normal range of motion, no pitting or edema. No cyanosis. NEUROLOGICAL: Cranial nerves grossly intact. Normal speech, normal gait. Normal sensory, motor exams PSYCH: Normal mood, normal affect. SKIN: Warm, Dry, normal turgor, no rashes or lesions noted. Constitutional: No symptoms reported EENT: No symptoms reported Cardiovascular: No symptoms reported Respiratory: No symptoms reported Gastrointestinal: See HPI Genitourinary: No symptoms reported Female Genitourinary: No symptoms reported Musculoskeletal: No symptoms reported Skin: No symptoms reported Hematologic/Lymphatic: No symptoms reported Neurological/Psychological: No symptoms reported Physical Exam - Vital signs Vitals: Temp Pulse Resp BP Pulse Ox 98.4 F 75 14 155/85 H 95 01/10/18 10:57 01/10/18 10:57 01/10/18 10:57 01/10/18 10:57 01/10/18 10:57 - Notes Notes: PHYSICAL EXAMINATION: GENERAL: Well-appearing, well-nourished and in no acute distress. HEAD: Atraumatic, normocephalic. EYES: Pupils equal round and reactive to light, extraocular movements intact, conjunctiva are normal. ENT: Nares patent, oropharynx clear without exudates. Moist mucous membranes. NECK: Normal range of motion, supple without lymphadenopathy Lungs: LUNGS: Breath sounds clear to auscultation bilaterally and equal. No wheezes rales or rhonchi. HEART: Regular rate and rhythm without murmurs ABDOMEN: Soft, left greater than right abdominal tenderness to palpation with guarding. no guarding, no rebound. No masses appreciated. No CVA tenderness bilaterally. Female : deferred Musculoskeletal: Normal range of motion, no pitting or edema. No cyanosis. NEUROLOGICAL: Cranial nerves grossly intact. Normal speech, normal gait. Normal sensory, motor exams PSYCH: Normal mood, normal affect. SKIN: Warm, Dry, normal turgor, no rashes or lesions noted. PHYSICAL EXAMINATION: Course - Re-evaluation Re-evalutation: 01/10/18 17:33 62-year-old female with afebrile vitals stable and in no distress presents for evaluation lower abdominal pain the diagnosis of diverticulitis who is being treated outpatient with Cipro and Flagyl course. CT abdomen pelvis with IV and oral contrast shows CBC negative for leukocytosis or anemia, CMP negative for hepatic dysfunction, no electrolyte disturbances. EKG negative for acute STEMI. Chest x-ray unremarkable. Ativan 1.31, patient given 2 L of IV fluid, check creatinine Discussed with patient that CT negative for any worsening symptoms, vitals remained stable mostly unremarkable except creatinine. Patient has received 1 mg of Dilaudid and a total of 9 mg of morphine while here the patient states she is in pain, sitting in bed on her iPhone, no grimacing, speaking with her partner times cleaning and sleeping. First set of cardiac enzyme was 0.024. On repeat BMP, creatinine down to 1.17, however troponin elevated to 0.034. Repeat in 3 hours to assess for any increase or decrease in troponin. Patient remains afebrile vitals stable and in no distress. Will repeat troponin at 2130. Disposition given to Ledy Benedict NP at 191 - Vital Signs Vital signs: Temp Pulse Resp BP Pulse Ox 98.4 F 75 14 155/85 H 95 01/10/18 10:57 01/10/18 10:57 01/10/18 10:57 01/10/18 10:57 01/10/18 10:57 - Laboratory Result Diagrams: 01/10/18 12:26 01/10/18 17:04 Laboratory results interpreted by me: 01/10/18 01/10/18 12:26 17:04 Sodium 136.9 L Creatinine 1.34 H Est GFR ( Amer) 48 L 57 L Est GFR (Non-Af Amer) 40 L 47 L Total Bilirubin 1.8 H Direct Bilirubin 1.0 H AST 90 H ALT 96 H Alkaline Phosphatase 462 H Lipase 15.9 L
[2018-01-10 13:01] LABS: ALANINE AMINOTRANSFERASE 96 U/L (9-52); ALBUMIN 4.3 g/dL (3.5-5.0); ALKALINE PHOSPHATASE 462 U/L (38-126); ANION GAP 12 (5-19); ASPARTATE AMINO TRANSFERASE 90 U/L (14-36); BILIRUBIN,TOTAL 1.8 mg/dL (0.2-1.3); BLOOD UREA NITROGEN 15 mg/dL (7-20); CARBON DIOXIDE 26 mmol/L (22-30); CHLORIDE 100 mmol/L (98-107); GLUCOSE 103 mg/dL (75-110); LIPASE 15.9 U/L (23-300); POTASSIUM 4.3 mmol/L (3.6-5.0); SODIUM 137.6 mmol/L (137-145); TOTAL PROTEIN 7.5 g/dL (6.3-8.2)
[2018-01-10] MEDS: RINGERS SOLUTION,LACTATED 1,000 ML IV PRN ×2 (13:22→15:14)
--- NOTE | 2018-01-10 13:36 | RADIOLOGY REPORT (SQ) ---
EXAM DESCRIPTION: CHEST SINGLE VIEW COMPLETED DATE/TIME: 01/10/2018 1:16 pm REASON FOR STUDY: epigastric, LLQ abd pain COMPARISON: 06/12/2016 EXAM PARAMETERS: NUMBER OF VIEWS: One view. TECHNIQUE: Single frontal radiographic view of the chest acquired. RADIATION DOSE: NA LIMITATIONS: Patient body habitus FINDINGS: LUNGS AND PLEURA: No acute infiltrates. Interval clearing small left pleural effusion. S table calcified granuloma RUL. MEDIASTINUM AND HILAR STRUCTURES: Stable HEART AND VASCULAR STRUCTURES: Heart normal in size. Normal vasculature. BONES: No acute findings. HARDWARE: None in the chest. OTHER: No other significant finding. IMPRESSION: Nothing acute. TECHNICAL DOCUMENTATION: JOB ID: [id number] [employer]- All Rights Reserved Reading location - IP/workstation name: [email or web address]
[2018-01-10] MEDS ORDERED: HYDROMORPHONE HCL INJ/PF 2 MG/ML AMPULE IV ONE ×2 (15:00→18:55)
[2018-01-10] MEDS ORDERED: RINGERS SOLUTION,LACTATED 1,000 ML IV PRN ×2 (15:01→18:42)
--- NOTE | 2018-01-10 15:25 | RADIOLOGY REPORT (SQ) ---
EXAM DESCRIPTION: CT ABD/PELVIS WITH IV ORAL COMPLETED DATE/TIME: 01/10/2018 2:53 pm REASON FOR STUDY: query abscess from diverticulitis COMPARISON: 01/07/2018, 10/22/2017, and 06/06/2014. TECHNIQUE: CT scan of the abdomen and pelvis performed using helical scanning technique with dynamic intravenous contrast injection. No oral contrast. Images reviewed with lung, soft tissue, and bone windows. Reconstructed coronal and sagittal MPR images reviewed. Delayed images for evaluation of the urinary system also acquired. All images stored on PACS. All CT scanners at this facility use dose modulation, iterative reconstruction, and/or weight based d osing when appropriate to reduce radiation dose to as low as reasonably achievable (ALARA). [facility]: Dose Right [facility]: CareDose [facility]: Dose Right [facility]: Teradose 4D [facility]: [employer] CONTRAST TYPE AND DOSE: contrast/concentration: Isovue 370.00 mg/ml; Total Contrast Delivered: 99.0 ml; Total Saline Delivered: 57.0 ml RENAL FUNCTION: BUN 18 creatinine 1.09. RADIATION DOSE: CT Rad equipment meets quality standard of care and radiation dose reduction techniq ues were employed. CTDIvol: 19.4 - 20.4 mGy. DLP: 2328 mGy-cm.. LIMITATIONS: None. FINDINGS: LOWER CHEST: No significant findings. No nodules or infiltrates. LIVER: Normal size. Diffuse fatty infiltration. No masses. No dilated ducts. SPLEEN: Normal size. No focal lesions. PANCREAS: No masses. No significant calcifications. No adjacent inflammation or peripancreatic fluid collections. Pancreatic duct not dilated. GALLBLADDER: No identified stones by CT criteria. No inflammatory changes to suggest cholecystitis. ADRENAL GLANDS: No significant masses or asymmetry. RIGHT KIDNEY AND URETER: No solid masses. No significant calcifications. No hydronephrosis or hyd roureter. LEFT KIDNEY AND URETER: No solid masses. No significant calcifications. No hydronephrosis or hydr oureter. AORTA AND VESSELS: No aneurysm. No dissection. Renal arteries, SMA, celiac without stenosis. RETROPERITONEUM: No retroperitoneal adenopathy, hemorrhage or masses. BOWEL AND PERITONEAL CAVITY: Diverticuli in the descending and sigmoid colon. Focal inflammatory pilar nges in the left lower quadrant, similar to the prior study. No fluid collection or extraluminal gas . No free fluid or peritoneal masses. APPENDIX: Normal. PELVIS: No mass. No free fluid. Normal bladder. ABDOMINAL WALL: No masses. No hernias. BONES: No significant or acute findings. OTHER: 1.6 cm circumscribed mass along the inferior margin of the left pectoral muscles, unchanged si nce May 2014. No other significant finding. IMPRESSION: 1. FOCAL ACUTE DIVERTICULITIS IN THE LEFT LOWER QUADRANT. SIMILAR APPEARANCE TO THE MOST RECENT STUD Y. NO EVIDENCE OF ABSCESS OR PERFORATION. 2. CIRCUMSCRIBED SOFT TISSUE NODULE ALONG THE INFERIOR MARGIN OF THE LEFT PECTORAL MUSCLES. THIS HAS BEEN PRESENT SINCE MAY 2014 AND IS UNCHANGED. 3. NO OTHER SIGNIFICANT OR ACUTE FINDING IN THE ABDOMEN OR PELVIS ON CT SCAN WITH IV CONTRAST. TECHNICAL DOCUMENTATION: JOB ID: [id number] Quality ID # [id number]: Final reports with documentation of one or more dose reduction techniques (e.g., Au tomated exposure control, adjustment of the mA and/or kV according to patient size, use of iterative reconstruction technique) 2010 [employer]- All Rights Reserved Reading location - IP/workstation name: [email or web address]
[2018-01-10 16:02] LABS: CREATINE KINASE MB 0.38 ng/mL (<4.55); TROPONIN I 0.027 ng/mL
[2018-01-10] MEDS ORDERED: HYDROCODONE/ACETAMINOPHEN 5-325 MG (6 TAB/ER DISP) PO PRN (17:37)
[2018-01-10 17:41] LABS: ANION GAP 8 (5-19); BLOOD UREA NITROGEN 13 mg/dL (7-20); CALCIUM 9.2 mg/dL (8.4-10.2); CARBON DIOXIDE 27 mmol/L (22-30); CHLORIDE 102 mmol/L (98-107); GLUCOSE 96 mg/dL (75-110); POTASSIUM 3.8 mmol/L (3.6-5.0); SODIUM 136.9 mmol/L (137-145)
[2018-01-10] MEDS ORDERED: ASPIRIN 81 MG TABLET, CHEWABLE PO ONE (18:43)
[2018-01-10 20:41] VITALS: BP 173/85
== END 2018-01-10 20:41 | disposition home or self-care (01) ==
LOC: ER 10:52
DX: K57.92 Diverticulitis of intestine, part unspecified, without perforation or abscess without bleeding (principal); R10.84 Generalized abdominal pain; I10 Essential (primary) hypertension; Z98.84 Bariatric surgery status; Z90.49 Acquired absence of other specified parts of digestive tract
CPT/HCPCS: 96376; 99285; 96375; 96365; 96366; 36415; 82553; 82550; 83690; 85025; 80048; 80053; 84484; 71045; 74177; J2270; J1170; J7120

== ENCOUNTER 2019-01-09 01:19 | Emergency (ER) | payer MEDICAID ==
[2019-01-09] MEDS ORDERED: ONDANSETRON HCL INJ/PF 4 MG/2 ML SDV IV ONE (02:15)
[2019-01-09] MEDS ORDERED: HYDROMORPHONE HCL INJ/PF 2 MG/ML AMPULE IV ONE ×2 (02:15→04:51)
[2019-01-09] MEDS ORDERED: NORMAL SALINE 500 ML IV ONE ×3 (02:15→04:51)
[2019-01-09] MEDS ORDERED: LISINOPRIL 10 MG TABLET PO ONE (02:16)
[2019-01-09 02:24] LABS: ABSOLUTE BASOPHILS # (AUTO) 0.1 10^3/uL (0.0-0.2); ABSOLUTE EOSINOPHILS # (AUTO) 0.2 10^3/uL (0.0-0.6); ABSOLUTE LYMPHOCYTES (AUTO) 2.2 10^3/uL (0.5-4.7); ABSOLUTE MONOCYTES (AUTO) 0.7 10^3/uL (0.1-1.4); ABSOLUTE NEUT (AUTO) 7.5 10^3/uL (1.7-8.2); BASOPHILS % (AUTO) 0.5 % (0-2); EOSINOPHILS % (AUTO) 1.7 % (0-6); HEMATOCRIT 38.7 % (36.0-47.0); HEMOGLOBIN 13.4 g/dL (12.0-15.5); LYMPHOCYTES % (AUTO) 20.3 % (13-45); MEAN CORPUSCULAR HEMOGLOBIN 29.5 pg (27.0-33.4); MEAN CORPUSCULAR HGB CONC 34.6 g/dL (32.0-36.0); MEAN CORPUSCULAR VOLUME 85 fl (80-97); PLATELET COUNT 248 10^3/uL (150-450); RED BLOOD COUNT 4.54 10^6/uL (3.72-5.28); SEGMENTED NEUTROPHILS % (AUTO) 70.5 % (42-78); TOTAL CELLS COUNTED % (AUTO) 100 %; WHITE BLOOD COUNT 10.6 10^3/uL (4.0-10.5)
[2019-01-09 02:39] LABS: ALANINE AMINOTRANSFERASE 18 U/L (9-52); ALBUMIN 4.3 g/dL (3.5-5.0); ALKALINE PHOSPHATASE 237 U/L (38-126); ANION GAP 9 (5-19); ASPARTATE AMINO TRANSFERASE 35 U/L (14-36); BILIRUBIN,DIRECT 0.3 mg/dL (0.0-0.4); BILIRUBIN,TOTAL 0.8 mg/dL (0.2-1.3); BLOOD UREA NITROGEN 13 mg/dL (7-20); CALCIUM 10.2 mg/dL (8.4-10.2); CARBON DIOXIDE 27 mmol/L (22-30); CHLORIDE 103 mmol/L (98-107); GLUCOSE 135 mg/dL (75-110); POTASSIUM 3.5 mmol/L (3.6-5.0); TOTAL PROTEIN 7.1 g/dL (6.3-8.2)
[2019-01-09 02:48] LABS: APPEARANCE,URINE SLIGHTLY-CLOUDY; BILIRUBIN,URINE NEGATIVE (NEGATIVE); COLOR,URINE STRAW; GLUCOSE, URINE NEGATIVE (NEGATIVE); KETONES,URINE NEGATIVE (NEGATIVE); LEUKOCYTE ESTERASE,URINE LARGE (NEGATIVE); NITRITE,URINE NEGATIVE (NEGATIVE); PROTEIN,URINE 100 mg/dL (NEGATIVE); URINE SPECIFIC GRAVITY 1.006; UROBILINOGEN,URINE NEGATIVE mg/dL (<2.0)
--- NOTE | 2019-01-09 02:49 | ER Document Report ---
ED General - General Chief Complaint: Abdominal Pain >50 Stated Complaint: ABDOMINAL PAIN Time Seen by Provider: 01/09/19 02:08 Notes: She is a pleasant 63-year-old female presents with complaint of abdominal pain. Some vomiting x2. Symptoms started this afternoon. No diarrhea. No blood in her stool. She says pain is mostly of her lower abdomen feels just like her previous episodes of diverticulitis. She said she has had diverticulitis several times. She is never needed surgery. She is never had abscess or perforation. No fevers. No other complaints at this time. Last time she had diverticulitis was 2 months ago. Patient says that she typically takes lisinopril but ran out of her medication 1 week ago. She recent moved back here from [place] and has not reestablished herself with a primary care doctor. TRAVEL OUTSIDE OF THE [place] IN LAST 30 DAYS: No - Related Data Allergies/Adverse Reactions: codeine [Codeine] Allergy (Verified 01/10/18 10:56) Penicillins Allergy (Verified 01/10/18 10:56) Past Medical History - Social History Smoking Status: Unknown if Ever Smoked Frequency of alcohol use: None Drug Abuse: None Family History: CAD, CVA, DM, Hyperlipidemia, Hypertension, Malignancy Patient has suicidal ideation: No Patient has homicidal ideation: No - Past Medical History Cardiac Medical History: Reports: Hx Hypertension Denies: Hx Congestive Heart Failure, Hx Coronary Artery Disease Renal/ Medical History: Reports: Hx Renal Insufficiency. Denies: Hx Peritoneal Dialysis GI Medical History: Reports: Hx Diverticulitis - Treated at a hospital in [place], [place] last year Musculoskeletal Medical History: Reports Hx Musculoskeletal Trauma Psychiatric Medical History: Reports: Hx Anxiety, Hx Attention Deficit Hyperactivity Disorder, Hx Depression Past Surgical History: Reports: Hx Abdominal Surgery - gastric bypass, Hx Breast Surgery - reduction, Hx Cholecystectomy, Hx Gastric Bypass Surgery - Immunizations Immunizations up to date: No Hx Diphtheria, Pertussis, Tetanus Vaccination: No Review of Systems - Review of Systems Notes: My Normal Review Basic REVIEW OF SYSTEMS: CONSTITUTIONAL : Denies fever, chills, or sweats. Denies recent illness. EENT: Denies eye, ear, throat, or mouth pain or symptoms. Denies nasal or sinus congestion. RESPIRATORY: Denies cough, cold, or chest congestion. Denies shortness of breath, difficulty breathing, or wheezing. GASTROINTESTINAL: Abdominal pain. Some vomiting. GENITOURINARY: Denies difficulty urinating, painful urination, burning, frequency, or blood in urine. MUSCULOSKELETAL: Denies neck or back pain or joint pain or swelling. SKIN: Denies rash or skin lesions. NEUROLOGICAL: Denies altered mental status or loss of consciousness. Denies headache. Denies weakness or paralysis or loss of use of either side. Denies problems with gait or speech. Denies sensory or motor loss. ALL OTHER SYSTEMS REVIEWED AND NEGATIVE. Physical Exam - Vital signs Vitals: Temp Pulse Resp BP Pulse Ox 98.2 F 123 H 20 231/136 H 99 01/09/19 01:20 01/09/19 01:20 01/09/19 01:01/09/19 01:01/09/19 01:20 - Notes Notes: General Appearance: Well nourished, alert, cooperative, no acute distress, mild obvious discomfort. Vitals: reviewed, See vital signs table. Head: no swelling or tenderness to the head Eyes: PERRL, EOMI, Conjuctiva clear Mouth: No decreasd moisture Lungs: No wheezing, No rales, No rhonci, No accessory muscle use, good air exchange bilaterally. Heart: Tachycardic rate, Regular rythm, No murmur, no rub Abdomen: Normal BS, soft, No rigidity, moderate lower abdominal tenderness to palpation, No guarding, no rebound, no abdominal masses, no organomegaly Extremities: strength 5/5 in all extremities, good pulses in all extremities, no swelling or tenderness in the extremities, no edema. Skin: warm, dry, appropriate color, no rash Neuro: speech clear, oriented x 3, normal affect, responds appropriately to questions. Course - Re-evaluation Re-evalutation: 01/09/19 03:14 Patient is feeling some improvement with her pain however she still a bit tachycardic. Urine shows evidence of infection however she has no dysuria. Being that she still tachycardic and she has history of diverticulitis I feel a CT scan is warranted to determine if this is true diverticulitis or if this is potentially an ascending urinary tract infection. Patient agrees with plan. 01/09/19 05:50 CT scan does show that patient does have a cystitis. There is no evidence of diverticulitis. I therefore gave her a dose of Rocephin we will start her on Keflex. Going through previous records it appears the patient's post pain atenolol. I did confirm this with her. I therefore gave her a dose of atenolol here. She did have some mild tachycardia when she was here which I think is related to nomination of her having some pain but also being without her atenolol which usually helps control her rate. I did review her previous visits and it appears that she is frequently mildly tachycardic. Currently her heart rate is 92. Her blood pressure is starting to improve. She looks well. I feel she safe to be discharged home. I explained to her the importance of taking her blood pressure medications as prolonged untreated hyper pressure could lead to further serious medical problems. Patient is understanding of this. She said she will try to get herself established with primary care physician. She says she is trying to get her Medicaid situated. I encouraged her to have a low threshold to return to ER if she feels like she is worsening in any way, has fevers, worsening abdominal pain, or has any further concerns. Patient agrees with plan will be discharged home. Dictation of this chart was performed using voice recognition software; therefore, there may be some unintended grammatical errors. - Vital Signs Vital signs: Temp Pulse Resp BP Pulse Ox 98.2 F 123 H 21 H 179/103 H 96 01/09/19 01:20 01/09/19 01:20 01/09/19 05:39 01/09/19 05:39 01/09/19 05:39 - Laboratory Result Diagrams: 01/09/19 02:14 01/09/19 02:14 Laboratory results interpreted by me: 01/09/19 01/09/19 01/09/19 02:14 02:14 02:14 WBC 10.6 H Potassium 3.5 L Est GFR (Non-Af Amer) 55 L Glucose 135 H Alkaline Phosphatase 237 H Urine Protein 100 H Urine Blood MODERATE H Ur Leukocyte Esterase LARGE H Discharge - Discharge Clinical Impression: Cystitis Hypertension Qualifiers: Hypertension type: unspecified Qualified Code(s): I10 - Essential (primary) hypertension Condition: Good Disposition: HOME, SELF-CARE Instructions: Family Physicians / Practices Additional Instructions: It appears that your abdominal pain is related to infection in your bladder. I gave you a dose of an antibiotic thru the IV here. I will prescribe you an antibiotic called Keflex. Please take this antibiotic as prescribed. Please return to the ER for evaluation if you are still having pain after 2-3 days of treatment. I prescribed you medications for your blood pressure. I prescribed you both your lisinopril and atenolol. Please take them as prescribed. Please try to establish yourself with a local primary care doctor for continued management of your high blood pressure. Please return to ER immediately if you have fevers, worsening pain, intractable vomiting, chest pain, severe headache, or feel unwell. Prescriptions: Atenolol [Tenormin 50 mg Tablet] 50 mg PO DAILY #30 tablet Cephalexin Monohydrate [Keflex 500 mg Capsule] 500 mg PO BID #14 capsule Lisinopril 20 mg PO DAILY #30 tablet
--- NOTE | 2019-01-09 04:42 | RADIOLOGY REPORT (SQ) ---
EXAM DESCRIPTION: CT ABDOMEN PELVIS WITH IV CONTRAST COMPLETED DATE/TME: 01/09/2019 03:12 CLINICAL HISTORY: 63 years Female, abdominal pain. creat 1.02 Comparison:Jan 10 2018, June 06, 2014 Technique: IV contrast. Coronal and sagittal reformat. This exam was performed according to our departmental dose-optimization program, which includes automated exposure control, adjustment of the mA and/or kV according to patient size and/or use of iterative reconstruction technique. [facility]: Dose Right [facility]: CareDose [facility]: Dose Right [facility]: Teradose 4D [facility]: [email or web address] LIMITATIONS: None Findings: Mild inflamed diffuse urinary bladder wall thickening. 2.2 x 1.5 cm ovoid inflamed soft tissue nodule of the deep subcutaneous soft tissues, chronic. Cholecystectomy. Bilateral tubal ligation clips. Gastric suture. Colonic diverticulosis. Bilateral perinephric fat stranding, nonspecific. Likely benign renal cyst(s), not definitively characterized. No ascites. Normal appendix. No pneumoperitoneum. No bowel obstruction. No hydronephrosis or hydroureter. No renal/ureteral stone. No evidence of abdominal aortic aneurysm. Inferior thorax, liver, pancreas, spleen, adrenals, renal system, gastrointestinal tract, pelvic organs, lymphatics, vasculature, and musculoskeleton appear otherwise unremarkable. IMPRESSION: Mild urinary bladder cystitis.
[2019-01-09] MEDS ORDERED: CEFTRIAXONE 1 GM/D5W RTU 1 GM/50 ML RTUPB IV ONE (05:10)
[2019-01-09] MEDS ORDERED: ATENOLOL 50 MG TABLET PO ONE (05:35)
[2019-01-09] MEDS ORDERED: ONDANSETRON ODT 4 MG TAB (6 TAB/ER DISP) PO PRN (05:50)
[2019-01-09 06:06] VITALS: BP 166/88
== END 2019-01-09 06:07 | disposition home or self-care (01) ==
LOC: ER 01:19
DX: N30.90 Cystitis, unspecified without hematuria (principal); I10 Essential (primary) hypertension; R11.10 Vomiting, unspecified; R10.30 Lower abdominal pain, unspecified; R00.0 Tachycardia, unspecified; Z87.19 Personal history of other diseases of the digestive system; Z98.84 Bariatric surgery status; Z90.49 Acquired absence of other specified parts of digestive tract; Z88.5 Allergy status to narcotic agent; Z88.0 Allergy status to penicillin
CPT/HCPCS: 99284; 36415; 87086; 85025; 87088; 80053; 81001; 87186; 74177; J3490 ×2; J1170; J2405; J7040; J0696

== ENCOUNTER 2019-02-22 19:58 | Emergency (ER) | payer MEDICAID ==
[2019-02-22] MEDS ORDERED: ATENOLOL 50 MG TABLET PO ONE (20:31)
[2019-02-22] MEDS ORDERED: LISINOPRIL 10 MG TABLET PO ONE (20:31)
--- NOTE | 2019-02-22 20:33 | ER Document Report ---
ED Medical Screen (RME) - General Chief Complaint: Lower Abdominal Pain Stated Complaint: ABDOMINAL PAIN Time Seen by Provider: 02/22/19 20:28 Mode of Arrival: Ambulatory Information source: Patient Notes: 64-year-old female presents the ED for the ED lower abdominal pain and headache. She denies any blurred vision or dizziness. She does have a blood pressure of 208/128 she states she has a history of high blood pressure has not had any medication for 2 days she is she states she has had low abdominal pain for 2 days and has not had any nausea vomiting or diarrhea. She states she does have a history of diverticulitis. She states the last time she had an episode was about 3 months ago. I have greeted and performed a rapid initial assessment of this patient. A comprehensive ED assessment and evaluation of the patient, analysis of test results and completion of medical decision making process will be conducted by an additional ED providers. TRAVEL OUTSIDE OF THE [place] IN LAST 30 DAYS: No - Related Data Allergies/Adverse Reactions: codeine [Codeine] Allergy (Verified 02/22/19 20:31) Penicillins Allergy (Verified 02/22/19 20:31) Past Medical History - Past Medical History Cardiac Medical History: Reports: Hx Hypertension Denies: Hx Congestive Heart Failure, Hx Coronary Artery Disease Renal/ Medical History: Reports: Hx Renal Insufficiency. Denies: Hx Peritoneal Dialysis GI Medical History: Reports: Hx Diverticulitis - Treated at a hospital in [place], [place] last year Musculoskeltal Medical History: Reports Hx Musculoskeletal Trauma Psychiatric Medical History: Reports: Hx Anxiety, Hx Attention Deficit Hyperactivity Disorder, Hx Depression Past Surgical History: Reports: Hx Abdominal Surgery - gastric bypass, Hx Breast Surgery - reduction, Hx Cholecystectomy, Hx Gastric Bypass Surgery - Immunizations Immunizations up to date: No Hx Diphtheria, Pertussis, Tetanus Vaccination: No Physical Exam - Vital signs Vitals: Temp Pulse Resp BP Pulse Ox 98.0 F 98 18 229/122 H 99 02/22/19 20:23 02/22/19 20:23 02/22/19 20:23 02/22/19 20:23 02/22/19 20:23 Course - Vital Signs Vital signs: Temp Pulse Resp BP Pulse Ox 98.0 F 98 18 229/122 H 99 02/22/19 20:23 02/22/19 20:23 02/22/19 20:23 02/22/19 20:23 02/22/19 20:23
[2019-02-22 21:24] LABS: APPEARANCE,URINE SLIGHTLY-CLOUDY; BILIRUBIN,URINE NEGATIVE (NEGATIVE); COLOR,URINE YELLOW; GLUCOSE, URINE NEGATIVE (NEGATIVE); KETONES,URINE NEGATIVE (NEGATIVE); LEUKOCYTE ESTERASE,URINE NEGATIVE (NEGATIVE); NITRITE,URINE NEGATIVE (NEGATIVE); PROTEIN,URINE NEGATIVE (NEGATIVE); URINE SPECIFIC GRAVITY 1.014; UROBILINOGEN,URINE NEGATIVE mg/dL (<2.0)
[2019-02-22 21:31] LABS: ABSOLUTE BASOPHILS # (AUTO) 0.1 10^3/uL (0.0-0.2); ABSOLUTE EOSINOPHILS # (AUTO) 0.2 10^3/uL (0.0-0.6); ABSOLUTE LYMPHOCYTES (AUTO) 2.3 10^3/uL (0.5-4.7); ABSOLUTE MONOCYTES (AUTO) 0.5 10^3/uL (0.1-1.4); ABSOLUTE NEUT (AUTO) 5.3 10^3/uL (1.7-8.2); BASOPHILS % (AUTO) 0.7 % (0-2); EOSINOPHILS % (AUTO) 2.7 % (0-6); HEMATOCRIT 38.3 % (36.0-47.0); HEMOGLOBIN 12.9 g/dL (12.0-15.5); LYMPHOCYTES % (AUTO) 27.9 % (13-45); MEAN CORPUSCULAR HEMOGLOBIN 29.3 pg (27.0-33.4); MEAN CORPUSCULAR HGB CONC 33.7 g/dL (32.0-36.0); MEAN CORPUSCULAR VOLUME 87 fl (80-97); MONOCYTES % (AUTO) 5.8 % (3-13); PLATELET COUNT 264 10^3/uL (150-450); RED CELL DISTRIBUTION WIDTH 13.5 % (11.5-14.0); SEGMENTED NEUTROPHILS % (AUTO) 62.9 % (42-78); TOTAL CELLS COUNTED % (AUTO) 100 %; WHITE BLOOD COUNT 8.4 10^3/uL (4.0-10.5)
[2019-02-22 21:47] LABS: INTERNATIONAL RATION (INR) 0.92; PROTHROMBIN TIME 12.3 SEC (11.4-15.4)
[2019-02-22 21:48] LABS: ALBUMIN 4.3 g/dL (3.5-5.0); ALKALINE PHOSPHATASE 279 U/L (38-126); ANION GAP 9 (5-19); ASPARTATE AMINO TRANSFERASE 121 U/L (14-36); BILIRUBIN,DIRECT 0.3 mg/dL (0.0-0.4); BILIRUBIN,TOTAL 0.6 mg/dL (0.2-1.3); BLOOD UREA NITROGEN 20 mg/dL (7-20); CALCIUM 10.1 mg/dL (8.4-10.2); CARBON DIOXIDE 26 mmol/L (22-30); CHLORIDE 101 mmol/L (98-107); CREATINE KINASE 50 U/L (30-135); GLUCOSE 106 mg/dL (75-110); PARTIAL THROMBOPLASTIN TIME 26.4 SEC (23.5-35.8); POTASSIUM 3.7 mmol/L (3.6-5.0); TOTAL PROTEIN 7.1 g/dL (6.3-8.2)
[2019-02-22 22:00] LABS: CREATINE KINASE MB 0.63 ng/mL (<4.55)
[2019-02-22 22:03] LABS: TROPONIN I < 0.012 ng/mL
[2019-02-22] MEDS ORDERED: MORPHINE SULFATE 10 MG/ML INJ IV ONE (23:28)
[2019-02-22] MEDS ORDERED: ONDANSETRON HCL INJ/PF 4 MG/2 ML SDV IV ONE (23:29)
[2019-02-22] MEDS ORDERED: HYDRALAZINE HCL INJ/PF 20 MG/1 ML SDV IV ONE (23:46)
--- NOTE | 2019-02-22 23:50 | RADIOLOGY REPORT (SQ) ---
EXAM DESCRIPTION: CT ABDOMEN PELVIS WITH IV CONTRAST COMPLETED DATE/TME: 02/22/2019 22:32 CLINICAL HISTORY: 64 years Female, pain diverticultis htn Comparison: None. Technique: IV contrast. Coronal and sagittal reformat. This exam was performed according to our departmental dose-optimization program, which includes automated exposure control, adjustment of the mA and/or kV according to patient size and/or use of iterative reconstruction technique. [facility]: Dose Right [facility]: CareDose [facility]: Dose Right [facility]: Teradose 4D [facility]: [employer] LIMITATIONS: None Findings: Extensive colonic diverticulosis. Mild fat inflammation associated with mid sigmoid diverticula at the anterior pelvis consistent with mild diverticulitis as clinically suspected. No abscess. No drainable fluid collection. Gastric suture. Renal scar/atrophy. Likely benign renal cyst(s), not definitively characterized. Bilateral tubal ligation clips. Mild physiologic posterior L5 vertebral height loss. Mild disc desiccation and anterior marginal osteophytes at the T11-T12 level. Spondylosis. No ascites. No pneumoperitoneum. Normal appendix. No gross evidence of gallbladder inflammation, hepatobiliary obstruction, or portal vein defect. No bowel obstruction. No hydronephrosis or hydroureter. No renal/ureteral stone. No evidence of abdominal aortic aneurysm. No significant thecal sac/cord or nerve root compression. Inferior thorax, liver, gallbladder, pancreas, spleen, adrenals, renal system, gastrointestinal tract, pelvic organs, lymphatics, vasculature, and musculoskeleton appear otherwise unremarkable. IMPRESSION: Mild sigmoid diverticulitis.
[2019-02-23 00:09] VITALS: BP 154/83
[2019-02-23] MEDS ORDERED: SULFAMETHOXAZOLE/TRIMETHOPRIM 800-160 MG TABLET PO ONE (00:54)
[2019-02-23] MEDS ORDERED: METRONIDAZOLE 500 MG TABLET PO ONE (00:54)
--- NOTE | 2019-02-23 01:46 | ER Document Report ---
ED GI/ - General Chief Complaint: Lower Abdominal Pain Stated Complaint: ABDOMINAL PAIN Time Seen by Provider: 02/22/19 20:28 Mode of Arrival: Ambulatory Notes: 64-year-old female complaining of lower abdominal pain. Has a history of diverticulitis. She says this feels like diverticulitis again. She had a little bit of diarrhea no blood in the stool not vomiting. Able to keep her medications down. No fevers no chest pain no shortness of breath no UTI symptoms. TRAVEL OUTSIDE OF THE [place] IN LAST 30 DAYS: No - HPI Patient complains to provider of: Abdominal pain, Diarrhea - Related Data Allergies/Adverse Reactions: codeine [Codeine] Allergy (Verified 02/22/19 20:31) Penicillins Allergy (Verified 02/22/19 20:31) Past Medical History - General Information source: Patient - Social History Smoking Status: Current Every Day Smoker Family History: CAD, CVA, DM, Hyperlipidemia, Hypertension, Malignancy Patient has suicidal ideation: No Patient has homicidal ideation: No - Past Medical History Cardiac Medical History: Reports: Hx Hypertension Denies: Hx Congestive Heart Failure, Hx Coronary Artery Disease Renal/ Medical History: Reports: Hx Renal Insufficiency. Denies: Hx Peritoneal Dialysis GI Medical History: Reports: Hx Diverticulitis - Treated at a hospital in [place], [place] last year Musculoskeletal Medical History: Reports Hx Musculoskeletal Trauma Psychiatric Medical History: Reports: Hx Anxiety, Hx Attention Deficit Hyperactivity Disorder, Hx Depression Past Surgical History: Reports: Hx Abdominal Surgery - gastric bypass, Hx Breast Surgery - reduction, Hx Cholecystectomy, Hx Gastric Bypass Surgery - Immunizations Immunizations up to date: No Hx Diphtheria, Pertussis, Tetanus Vaccination: No Review of Systems - Review of Systems Gastrointestinal: Abdominal pain Genitourinary: denies: Dysuria, Discharge, Frequency Female Genitourinary: denies: Vaginal discharge, Vaginal bleeding Physical Exam - Vital signs Vitals: Temp Pulse Resp BP Pulse Ox 98.0 F 98 18 229/122 H 99 02/22/19 20:23 02/22/19 20:23 02/22/19 20:23 02/22/19 20:23 02/22/19 20:23 - Notes Notes: PHYSICAL EXAMINATION: GENERAL: Well-appearing, well-nourished and in no acute distress. HEAD: Atraumatic, normocephalic. EYES: Pupils equal round and reactive to light, extraocular movements intact, sclera anicteric, conjunctiva are normal. ENT: nares patent, oropharynx clear without exudates. Moist mucous membranes. NECK: Normal range of motion, supple without lymphadenopathy LUNGS: Breath sounds clear to auscultation bilaterally and equal. No wheezes rales or rhonchi. HEART: Regular rate and rhythm without murmurs ABDOMEN: Soft, tender lower abdominal. No rebound no guarding. Normoactive bowel sounds. No guarding, no rebound. No masses appreciated. EXTREMITIES: Normal range of motion, no pitting or edema. No cyanosis. NEUROLOGICAL: No focal neurological deficits. Moves all extremities spontaneously and on command. PSYCH: Normal mood, normal affect. SKIN: Warm, Dry, normal turgor, no rashes or lesions noted. Course - Re-evaluation Re-evalutation: 02/23/19 01:43 CT scan shows mild diverticulitis of sigmoid colon. Discussed with the patient is. She feels better. Her blood pressure is down. She has no pain medications at home. She is allergic to penicillin. I will prescribe Bactrim and Flagyl for her. Refer back to her family doctor for recheck on Monday to Monday. Return precautions given. - Vital Signs Vital signs: Temp Pulse Resp BP Pulse Ox 97.7 F 77 16 154/83 H 98 02/23/19 00:09 02/23/19 00:09 02/23/19 00:09 02/23/19 00:09 02/23/19 00:09 - Laboratory Result Diagrams: 02/22/19 21:10 02/22/19 21:10 Laboratory results interpreted by me: 02/22/19 02/22/19 20:56 21:10 Sodium 136.1 L Est GFR (MDRD) Non-Af 52 L AST 121 H Alkaline Phosphatase 279 H Urine Blood MODERATE H Discharge - Discharge Clinical Impression: Sigmoid diverticulitis Clinical Impression: (Ruled Out): Diverticulitis large intestine Condition: Stable Disposition: HOME, SELF-CARE Instructions: Diverticulitis ([facility]) Additional Instructions: Follow-up with your family doctor Monday. Return if any concerns take your medications as prescribed. Return if any concerns. Prescriptions: Hydrocodone Bit/Acetaminophen [Hydrocodon-Acetaminophen 5-325] 1 each PO Q6HP PRN #20 tablet PRN Reason: Sulfamethoxazole/Trimethoprim [Bactrim Ds Tablet] 2 tab PO BID #28 tablet Metronidazole [Flagyl 500 mg Tablet] 500 mg PO TID #42 tablet
== END 2019-02-23 02:10 | disposition home or self-care (01) ==
LOC: ER 19:58
DX: K57.32 Diverticulitis of large intestine without perforation or abscess without bleeding (principal); R10.30 Lower abdominal pain, unspecified; R19.7 Diarrhea, unspecified; F17.200 Nicotine dependence, unspecified, uncomplicated; I10 Essential (primary) hypertension; Z98.84 Bariatric surgery status; Z90.49 Acquired absence of other specified parts of digestive tract; Z88.5 Allergy status to narcotic agent; Z88.0 Allergy status to penicillin
CPT/HCPCS: 36415; 82553; 82550; 83690; 85025; 85610; 85730; 80053; 81001; 84484; 74177; J3490 ×4; J2270; J2405; 96374; 96375; 99284

== ENCOUNTER → 2019-05-06 | Outpatient (CLI) | payer MEDICAID ==
--- NOTE | 2019-05-06 16:50 | RADIOLOGY REPORT (SQ) ---
EXAM DESCRIPTION: CT ABD/PELVIS WITH IV ONLY COMPLETED DATE/TIME: 05/06/2019 4:28 pm REASON FOR STUDY: PRESUMED DIVERTICULITIS K57.92 DVTRCLI OF INTEST, PART UNSP, W/O PERF OR ABSCESS W/O COMPARISON: 02/22/2019. TECHNIQUE: CT scan of the abdomen and pelvis performed using helical scanning technique with dynamic intravenous contrast injection. No oral contrast. Images reviewed with lung, soft tissue, and bone windows. Reconstructed coronal and sagittal MPR images reviewed. Delayed images for evaluation of the urinary system also acquired. All images stored on PACS. All CT scanners at this facility use dose modulation, iterative reconstruction, and/or weight based d osing when appropriate to reduce radiation dose to as low as reasonably achievable (ALARA). [facility]: Dose Right [facility]: CareDose [facility]: Dose Right [facility]: Teradose 4D [facility]: [employer] CONTRAST TYPE AND DOSE: contrast/concentration: Isovue 350.00 mg/ml; Total Contrast Delivered: 100.0 ml; Total Saline Delivered: 70.0 ml RENAL FUNCTION: Creatinine 1.1. RADIATION DOSE: CT Rad equipment meets quality standard of care and radiation dose reduction techniq ues were employed. CTDIvol: 16.4 - 16.4 mGy. DLP: 1859 mGy-cm.. LIMITATIONS: None. FINDINGS: LOWER CHEST: No significant findings. No nodules or infiltrates. LIVER: Normal size. No masses. No dilated ducts. SPLEEN: Normal size. No focal lesions. PANCREAS: No masses. No significant calcifications. No adjacent inflammation or peripancreatic fluid collections. Pancreatic duct not dilated. GALLBLADDER: Surgically absent. ADRENAL GLANDS: No significant masses or asymmetry. RIGHT KIDNEY AND URETER: No solid masses. No significant calcifications. No hydronephrosis or hyd roureter. LEFT KIDNEY AND URETER: Cortical thinning. Small cortical cyst. No solid masses. No significant c alcifications. No hydronephrosis or hydroureter. AORTA AND VESSELS: No aneurysm. No dissection. Renal arteries, SMA, celiac without stenosis. RETROPERITONEUM: No retroperitoneal adenopathy, hemorrhage or masses. BOWEL AND PERITONEAL CAVITY: Previous gastric surgery. Numerous colonic diverticuli. Inflammatory c hanges along the distal descending colon in the left lower quadrant. No abnormal fluid collection. N o free fluid or peritoneal masses. APPENDIX: Normal. PELVIS: No mass. No free fluid. Normal bladder. ABDOMINAL WALL: No masses. No hernias. BONES: No significant or acute findings. OTHER: No other significant finding. IMPRESSION: MILD DIVERTICULITIS IN THE LEFT LOWER QUADRANT. NO EVIDENCE OF ABSCESS. NO OTHER SIGNI FICANT OR ACUTE FINDING IN THE ABDOMEN OR PELVIS ON CT SCAN WITH IV CONTRAST. TECHNICAL DOCUMENTATION: JOB ID: [id number] Quality ID # [id number]: Final reports with documentation of one or more dose reduction techniques (e.g., Au tomated exposure control, adjustment of the mA and/or kV according to patient size, use of iterative reconstruction technique) 2010 [email or web address]- All Rights Reserved Reading location - IP/workstation name: [email or web address]
== END ==
LOC: RAD 14:49
PROVIDERS: ATTEND Nurse Practitioner Primary Care
DX: K57.92 Diverticulitis of intestine, part unspecified, without perforation or abscess without bleeding (principal)
CPT/HCPCS: 74177; 82565

== ENCOUNTER 2019-06-17 08:45 | Day surgery (SDC) | payer MEDICAID ==
[~2019-06-17 08:45] MED LIST: PROPOFOL INJ 200 MG/20 ML VIAL IV ONE
[2019-06-17 11:01] VITALS: BP 122/75
--- NOTE | 2019-06-17 11:44 | Operative Report ---
Operative Report DATE OF SURGERY: 06/17/19 Operative Report: The risks, benefits and alternatives of the procedure including the risk of bleeding, perforation requiring surgery have been explained to the patient in detail and informed consent has been obtained. Patient is placed in a left, lateral decubital position. Timeout was called. Propofol medication is administered. Rectal examination is done which did not reveal any masses, tears or fissures. An Olympus videoscope was introduced into the patient's rectum. Scope was then carefully advanced all the way to the cecum. The cecum was identified by the usual anatomical landmarks including the ileocecal valve as well as the appendiceal office. Photodocumentation is obtained. Scope was then sequentially pulled back via the various segments of the colon including the ascending colon, transverse colon, splenic flexure, descending colon and finally into the rectosigmoid portions of the colon. Retroflexion maneuvers performed. PREOPERATIVE DIAGNOSIS: Abdominal pain, change in bowel habits POSTOPERATIVE DIAGNOSIS: Colon polyp removed via biopsy forceps. Right-sided colon inflammation status post biopsy. Diverticulosis without any evidence of diverticulitis. Internal hemorrhoids. 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 COMPLICATIONS: None. ESTIMATED BLOOD LOSS: None. INTRAOPERATIVE FINDINGS: As noted above. PROCEDURE: Patient tolerated the procedure well. No immediate postprocedure complications are noted. Patient is discharged in good condition. Discharge date 06/17/2019. Discharge diet: Regular. Discharge activity: Regular. 2 to 3-week follow-up to discuss findings. 5-year surveillance colonoscopy. Patient is instructed to call the office or proceed to the emergency room should there be any further problems or questions.
== END 2019-06-17 11:00 | disposition home or self-care (01) ==
LOC: END 08:45
PROVIDERS: ATTEND Internal Medicine Gastroenterology
DX: K57.30 Diverticulosis of large intestine without perforation or abscess without bleeding (principal); K52.9 Noninfective gastroenteritis and colitis, unspecified; K64.8 Other hemorrhoids; D12.4 Benign neoplasm of descending colon; I10 Essential (primary) hypertension; Z79.899 Other long term (current) drug therapy; Z88.0 Allergy status to penicillin; Z88.5 Allergy status to narcotic agent
CPT/HCPCS: 45380; 88305 ×2; 00811; J2704; 811

== ENCOUNTER 2019-09-12 14:29 | Inpatient (IN) | payer MEDICAID ==
--- NOTE | 2019-09-12 14:45 | ER Document Report ---
ED General - General Chief Complaint: Vaginal Bleeding Stated Complaint: VAGINAL BLEEDING Time Seen by Provider: 09/12/19 14:33 Primary Care Provider: TWYLA COLLINS MD [ACTIVE STAFF] - Follow up tomorrow MARY BERMUDEZ FNP-C [Primary Care Provider] - Follow up tomorrow TRAVEL OUTSIDE OF THE [place] IN LAST 30 DAYS: No - HPI Notes: 64-year-old female presents to the ED for complaints of vaginal bleeding with pelvic pain for the last 3 days. Patient states she has been postmenopausal for over 20 years. Patient reports she is going through 3-4 tampons a day. Denies any trauma, patient is not sexually active. Patient denies any blood thinners or clotting disorders. Denies any pelvic surgeries. Denies fevers, chills, chest pain,palpitations, shortness of breath, dyspnea, nausea, vomiting, diarrhea, abdominal pain, hematuria,blurred vision, double vision, loss of vision, speech changes, LH, dizziness, syncope, headaches, wheezing, ST, URI, neck pain, weakness, bowel or bladder dysfunction, saddle anesthesia, numbness or tingling in bilateral upper or lower extremities equally, muscle paralysis, weakness in bilateral upper or lower extremities equally or rash. - Related Data Allergies/Adverse Reactions: codeine [Codeine] Allergy (Intermediate, Verified 09/12/19 14:37) HIVES AND BAD MUSCLE SPASMS Penicillins Allergy (Intermediate, Verified 09/12/19 14:37) HIVES AND BAD MUSCLE SPASMS Past Medical History - General Information source: Patient - Social History Smoking Status: Never Smoker Chew tobacco use (# tins/day): No Frequency of alcohol use: None Drug Abuse: None Family History: CAD, CVA, DM, Hyperlipidemia, Hypertension, Malignancy Patient has suicidal ideation: No Patient has homicidal ideation: No - Past Medical History Cardiac Medical History: Reports: Hx Hypertension Denies: Hx Congestive Heart Failure, Hx Coronary Artery Disease, Hx Heart Attack Pulmonary Medical History: Denies: Hx Asthma, Hx Bronchitis, Hx COPD, Hx Pneumonia Neurological Medical History: Denies: Hx Cerebrovascular Accident, Hx Seizures Renal/ Medical History: Reports: Hx Renal Insufficiency. Denies: Hx Peritoneal Dialysis GI Medical History: Reports: Hx Diverticulitis - Treated at a hospital in [place], [place] last year Musculoskeletal Medical History: Denies Hx Arthritis, Reports Hx Musculoskeletal Trauma Psychiatric Medical History: Reports: Hx Anxiety, Hx Attention Deficit Hyperactivity Disorder, Hx Depression Past Surgical History: Reports: Hx Abdominal Surgery - gastric bypass, Hx Breast Surgery - reduction, Hx Cholecystectomy, Hx Gastric Bypass Surgery - Immunizations Immunizations up to date: No Hx Diphtheria, Pertussis, Tetanus Vaccination: No Review of Systems - Review of Systems Constitutional: No symptoms reported EENT: No symptoms reported Cardiovascular: No symptoms reported Respiratory: No symptoms reported Gastrointestinal: No symptoms reported Genitourinary: No symptoms reported Female Genitourinary: See HPI, Post menopausal, Vaginal bleeding Musculoskeletal: No symptoms reported Skin: No symptoms reported Hematologic/Lymphatic: No symptoms reported Neurological/Psychological: No symptoms reported Physical Exam - Vital signs Vitals: Temp Pulse Resp BP Pulse Ox 97.6 F 70 16 108/64 97 09/12/19 14:33 09/12/19 14:33 09/12/19 14:33 09/12/19 14:33 09/12/19 14:33 - Notes Notes: PHYSICAL EXAMINATION: reviewed vital signs by RN GENERAL: Well-appearing, well-nourished and in no acute distress. HEAD: Atraumatic, normocephalic. EYES: Pupils equal round and reactive to light, extraocular movements intact, conjunctiva are normal. ENT: Nares patent, oropharynx clear without exudates. Moist mucous membranes. NECK: Normal range of motion, supple without lymphadenopathy LUNGS: Breath sounds clear to auscultation bilaterally and equal. No wheezes rales or rhonchi. HEART: Regular rate and rhythm without murmurs ABDOMEN: Soft, nontender, nondistended abdomen. No guarding, no rebound. No masses appreciated. Female : External genitalia without erythema, exudate or discharge. Vaginal vault is without discharge. Cervix is of normal color without lesion. Uterus is noted to be of normal size and nontender. No cervical motion tenderness is seen. No masses are palpated. scant blood in the vaginal vault without clots, os closed, no adnexal tenderness or mass Musculoskeletal: Normal range of motion, no pitting or edema. No cyanosis. NEUROLOGICAL: Cranial nerves grossly intact. Normal speech, normal gait. Normal sensory, motor exams PSYCH: Normal mood, normal affect. SKIN: Warm, Dry, normal turgor, no rashes or lesions noted. Course - Vital Signs Vital signs: Temp Pulse Resp BP Pulse Ox 97.6 F 70 16 108/64 97 09/12/19 14:33 09/12/19 14:33 09/12/19 14:33 09/12/19 14:33 09/12/19 14:33 - Laboratory Result Diagrams: 09/12/19 14:55 09/12/19 14:55 Laboratory results interpreted by me: 09/12/19 09/12/19 14:55 14:55 WBC 10.9 H Sodium 132.2 L Carbon Dioxide 21 L BUN 58 H Creatinine 3.82 H Est GFR ( Amer) 14 L Est GFR (MDRD) Non-Af 12 L Glucose 139 H Discharge - Discharge Clinical Impression: Vaginal bleeding, MEG (acute kidney injury), Endometrial mass Condition: Stable Disposition: ADMITTED INPATIENT Admitting Provider: Sil (Hospitalist) Unit Admitted: IMCU Referrals: TWYLA COLLINS MD [ACTIVE STAFF] - Follow up tomorrow MARY BERMUDEZ FNP-C [Primary Care Provider] - Follow up tomorrow
[2019-09-12 15:04] LABS: ABSOLUTE BASOPHILS # (AUTO) 0.1 10^3/uL (0.0-0.2); ABSOLUTE EOSINOPHILS # (AUTO) 0.1 10^3/uL (0.0-0.6); ABSOLUTE LYMPHOCYTES (AUTO) 2.5 10^3/uL (0.5-4.7); ABSOLUTE MONOCYTES (AUTO) 0.5 10^3/uL (0.1-1.4); ABSOLUTE NEUT (AUTO) 7.7 10^3/uL (1.7-8.2); BASOPHILS % (AUTO) 0.5 % (0-2); EOSINOPHILS % (AUTO) 1.1 % (0-6); HEMATOCRIT 36.5 % (36.0-47.0); HEMOGLOBIN 13.1 g/dL (12.0-15.5); LYMPHOCYTES % (AUTO) 22.7 % (13-45); MEAN CORPUSCULAR HEMOGLOBIN 30.8 pg (27.0-33.4); MEAN CORPUSCULAR HGB CONC 35.8 g/dL (32.0-36.0); MEAN CORPUSCULAR VOLUME 86 fl (80-97); MONOCYTES % (AUTO) 4.6 % (3-13); PLATELET COUNT 310 10^3/uL (150-450); RED BLOOD COUNT 4.25 10^6/uL (3.72-5.28); RED CELL DISTRIBUTION WIDTH 13.5 % (11.5-14.0); SEGMENTED NEUTROPHILS % (AUTO) 71.1 % (42-78); TOTAL CELLS COUNTED % (AUTO) 100 %; WHITE BLOOD COUNT 10.9 10^3/uL (4.0-10.5)
[2019-09-12 15:37] LABS: ALBUMIN 3.8 g/dL (3.5-5.0); ALKALINE PHOSPHATASE 106 U/L (38-126); ANION GAP 9 (5-19); ASPARTATE AMINO TRANSFERASE 16 U/L (14-36); BILIRUBIN,DIRECT 0.3 mg/dL (0.0-0.4); BILIRUBIN,TOTAL 0.6 mg/dL (0.2-1.3); BLOOD UREA NITROGEN 58 mg/dL (7-20); CALCIUM 9.4 mg/dL (8.4-10.2); CARBON DIOXIDE 21 mmol/L (22-30); CHLORIDE 102 mmol/L (98-107); GLUCOSE 139 mg/dL (75-110); POTASSIUM 3.8 mmol/L (3.6-5.0)
--- NOTE | 2019-09-12 15:41 | RADIOLOGY REPORT (SQ) ---
EXAM DESCRIPTION: U/S NON OB PEL TV W/DOPPLER IMAGES COMPLETED DATE/TIME: 09/12/2019 3:20 pm REASON FOR STUDY: vaginal bleeding/pelvic pain COMPARISON: Pelvic ultrasound 01/07/2018 CT abdomen pelvis 05/06/2019 TECHNIQUE: Dynamic and static grayscale images acquired of the pelvis via transvaginal approach and recorded on PACS. Additional selected color Doppler and spectral images recorded. LIMITATIONS: Ovaries not visualized to adnexal bowel gas FINDINGS: UTERUS: Contour normal. No mass. Uterus is 7 x 5 x 4 cm size. ENDOMETRIAL STRIPE: The endometrium is 14 mm thickness and heterogeneous. Along the lower uterine se gment, question the submucosal fibroid versus endometrial nodule 15 mm diameter. CERVIX: Closed, multiple small nabothian cysts. RIGHT OVARY AND DOPPLER: Not visualized due to adnexal bowel gas. LEFT OVARY AND DOPPLER: Not visualized due to adnexal bowel gas. FREE FLUID: None noted. OTHER: No other significant finding. IMPRESSION: Thickened endometrial stripe with endometrial mass versus submucosal fibroid along the l ower uterine segment. Ovaries not visualized due to adnexal bowel gas No free pelvic fluid TECHNICAL DOCUMENTATION: JOB ID: [id number] [employer]- All Rights Reserved Rev-10/27 Reading location - IP/workstation name: [id number]
[2019-09-12 16:00] LABS: RBCS (WET MOUNT) 4+ RBCS SEEN; T.VAGINALIS (WET MOUNT) NO TRICHOMONAS SEEN; WBCS (WET MOUNT) FEW WBCS SEEN; YEAST (WET MOUNT) NO YEAST SEEN
[2019-09-12] MEDS ORDERED: NORMAL SALINE 1000 ML 1,000 ML IV ONE (16:20)
--- NOTE | 2019-09-12 17:04 | RADIOLOGY REPORT (SQ) ---
EXAM DESCRIPTION: CT ABD/PELVIS NO ORAL OR IV IMAGES COMPLETED DATE/TIME: 09/12/2019 3:44 pm REASON FOR STUDY: Low back pain, acute renal insufficency . Lower abdominal pain. Prior gastric by pass and cholecystectomy. COMPARISON: CT abdomen and pelvis, 05/06/2019 TECHNIQUE: CT scan of the abdomen and pelvis performed without intravenous or oral contrast. Images reviewed with lung, soft tissue, and bone windows. Reconstructed coronal and sagittal MPR images revi ewed. All images stored on PACS. All CT scanners at this facility use dose modulation, iterative reconstruction, and/or weight based d osing when appropriate to reduce radiation dose to as low as reasonably achievable (ALARA). [facility]: Dose Right [facility]: CareDose [facility]: Dose Right [facility]: Teradose 4D [facility]: [id number] RADIATION DOSE: CT Rad equipment meets quality standard of care and radiation dose reduction techniq ues were employed. CTDIvol: 16.6 mGy. DLP: 920 mGy-cm.mGy. LIMITATIONS: None. FINDINGS: LOWER CHEST: No significant findings. No nodules or infiltrates. NON-CONTRASTED LIVER, SPLEEN, ADRENALS: Evaluation limited by lack of IV contrast. No identified sign ificant masses. PANCREAS: No masses. No peripancreatic inflammatory changes. GALLBLADDER: Surgically absent. RIGHT KIDNEY AND URETER: No suspicious masses. Assessment limited by lack of IV contrast. No signif icant calcifications. No hydronephrosis or hydroureter. LEFT KIDNEY AND URETER: No suspicious masses. Assessment limited by lack of IV contrast. No signifi cant calcifications. No hydronephrosis or hydroureter. AORTA AND RETROPERITONEUM: No aneurysm. No retroperitoneal masses or adenopathy. BOWEL AND PERITONEAL CAVITY: Postoperative changes of prior gastric bypass. No evidence of bowel obs truction. No obvious masses or inflammatory changes. Scattered colonic diverticula without evidence of diverticulitis. No free fluid. APPENDIX: Normal. PELVIS, BLADDER, AND ABDOMINAL WALL:Uterus and ovaries have normal size. No adnexal mass. Urinary b ladder is relatively decompressed. BONES: No significant findings. OTHER: No other significant finding. IMPRESSION: 1. No acute abnormality in the abdomen or pelvis to explain the patient's symptoms. 2. No renal or ureteral calculi. No hydronephrosis. 3. Appendix is normal. 4. Colonic diverticulosis without evidence of diverticulitis. 5. Postoperative changes of gastric bypass without evidence of acute complication. COMMENT: Quality ID # [id number]: Final reports with documentation of one or more dose reduction techniques (e.g., Automated exposure control, adjustment of the mA and/or kV according to patient size, use of iterative reconstruction technique) TECHNICAL DOCUMENTATION: JOB ID: [id number] 2010 [employer]- All Rights Reserved Reading location - IP/workstation name: [email or web address]
[2019-09-12 17:23] LABS: CHLAM PCR NOT DETECTED (NOT DETECT)
[2019-09-12] MEDS ORDERED: ACETAMINOPHEN 325 MG TABLET PO PRN (18:13)
[2019-09-12] MEDS ORDERED: MAG HYDROX/AL HYDROX/SIMETH SUSP 30 ML UDCUP PO PRN (18:13)
[2019-09-12] MEDS ORDERED: PROMETHAZINE HCL 25 MG TABLET PO PRN (18:13)
--- NOTE | 2019-09-12 18:23 | PDOC H&P ---
History of Present Illness Admission Date/PCP: 09/12/19 16:54 MARY BERMUDEZ, WOOD BORER-C Patient complains of: Vaginal bleeding History of Present Illness: PANFILO CALVIN is a 64 year old female with a history of hypertension and depression. She states that she was in her usual state of health until approximately 3 days ago. She began to have constant vaginal bleeding. She states that it was quite heavy. She denied any nausea, vomiting, shaking chills or altered bowel habits. When she presented to the hospital laboratory studies revealed that she had an acute kidney injury with a BUN of 58 and a creatinine of 3.82. There was no anemia and no white blood cell elevation. She will be admitted by the hospitalist service and be seen by nephrology and gynecology. Past Medical History Cardiac Medical History: Reports: Hypertension Denies: Congestive Heart Failure, Coronary Artery Disease, Myocardial Infarc tion Pulmonary Medical History: Denies: Asthma, Bronchitis, Chronic Obstructive Pulmonary Disease (COPD), Pneumonia Neurological Medical History: Denies: Seizures GI Medical History: Reports: Diverticulitis - Treated at a hospital in [place], [place] last year Musculoskeltal Medical History: Denies: Arthritis Psychiatric Medical History: Reports: Attention Deficit Hyperactivity Disorder, Depression Hematology: Denies: Anemia Past Surgical History Past Surgical History: Reports: Cholecystectomy, Gastric Bypass Surgery, Other - Breast reduction Social History Information Source: Patient Lives with: Alone Smoking Status: Never Smoker Electronic Cigarette use?: No Frequency of Alcohol Use: None Hx Recreational Drug Use: No Hx Prescription Drug Abuse: No - Advance Directive Resuscitation Status: Full Code Family History Family History: CAD, CVA, DM, Hyperlipidemia, Hypertension, Malignancy Parental Family History Reviewed: Yes Children Family History Reviewed: Yes Sibling(s) Family History Reviewed.: Yes Medication/Allergy Home Medications: Amlodipine Besylate [Norvasc 5 mg Tablet] 5 mg PO DAILY 09/12/19 Dextroamphetamine/Amphetamine [Adderall 10 mg Tablet] 10 mg PO BID 09/12/19 Lisinopril/Hydrochlorothiazide [Lisinopril-Hctz 20-12.5 mg Tab] 1 tab PO Q12 09/12/19 Metoprolol Tartrate [Lopressor 50 mg Tablet] 50 mg PO Q12 09/12/19 Sertraline HCl [Zoloft 50 mg Tablet] 50 mg PO DAILY 09/12/19 Trazodone HCl 150 mg PO QHS 09/12/19 Allergies/Adverse Reactions: codeine [Codeine] Allergy (Intermediate, Verified 09/12/19 14:37) HIVES AND BAD MUSCLE SPASMS Penicillins Allergy (Intermediate, Verified 09/12/19 14:37) HIVES AND BAD MUSCLE SPASMS Review of Systems All systems: reviewed and no additional remarkable complaints except as stated Constitutional: PRESENT: other - Lightheaded Genitourinary: PRESENT: other - Vaginal bleeding Psychiatric: PRESENT: depression Physical Exam Vital Signs: Temp Pulse Resp BP Pulse Ox 97.4 F 58 L 16 106/64 100 09/12/19 17:33 09/12/19 17:33 09/12/19 17:33 09/12/19 17:33 09/12/19 17:33 Intake & Output 09/11/19 09/12/19 09/13/19 06:59 06:59 06:59 Weight 90.4 kg General appearance: PRESENT: no acute distress, cooperative, well-developed Head exam: PRESENT: atraumatic, normocephalic Eye exam: PRESENT: conjunctiva pink, EOMI. ABSENT: scleral icterus Ear exam: PRESENT: normal external ear exam. ABSENT: bleeding, drainage Mouth exam: PRESENT: dry mucosa, tongue midline Teeth exam: PRESENT: poor dentation Respiratory exam: PRESENT: clear to auscultation melissa, symmetrical, unlabored. ABSENT: prolonged expiratory phas, rales, rhonchi, tachypnea, wheezes Cardiovascular exam: PRESENT: RRR, +S1, +S2 GI/Abdominal exam: PRESENT: normal bowel sounds, soft. ABSENT: distended, guarding, tenderness Rectal exam: PRESENT: deferred Gentrourinary exam: ABSENT: indwelling catheter Extremities exam: ABSENT: joint swelling, pedal edema Musculoskeletal exam: PRESENT: ambulatory, normal inspection. ABSENT: deformity Neurological exam: PRESENT: alert, awake, oriented to person, oriented to place, oriented to time, oriented to situation, CN II-XII grossly intact. ABSENT: altered, motor sensory deficit Psychiatric exam: PRESENT: flat affect. ABSENT: agitated, anxious Focused psych exam: ABSENT: delusional, restlessness Skin exam: PRESENT: dry, normal color, warm. ABSENT: rash Results Laboratory Results: 09/12/19 14:55 09/12/19 14:55 09/12/19 09/12/19 14:55 14:55 WBC 10.9 H RBC 4.25 Hgb 13.1 Hct 36.5 MCV 86 MCH 30.8 MCHC 35.8 RDW 13.5 Plt Count 310 Seg Neutrophils % 71.1 Sodium 132.2 L Potassium 3.8 Chloride 102 Carbon Dioxide 21 L Anion Gap 9 BUN 58 H Creatinine 3.82 H Est GFR ( Amer) 14 L Glucose 139 H Calcium 9.4 Total Bilirubin 0.6 AST 16 Alkaline Phosphatase 106 Total Protein 7.0 Albumin 3.8 Impressions: Transvaginal US 09/12/19 14:41 IMPRESSION: Thickened endometrial stripe with endometrial mass versus submucosal fibroid along the lower uterine segment. Ovaries not visualized due to adnexal bowel gas No free pelvic fluid Abdomen/Pelvis CT 09/12/19 16:06 IMPRESSION: 1. No acute abnormality in the abdomen or pelvis to explain the patient's symptoms. 2. No renal or ureteral calculi. No hydronephrosis. 3. Appendix is normal. 4. Colonic diverticulosis without evidence of diverticulitis. 5. Postoperative changes of gastric bypass without evidence of acute complication. Assessment and Plan - Diagnosis (1) Vaginal bleeding Is this a current diagnosis for this admission?: Yes Plan: September 12, 2019 CT scan and pelvic ultrasound did not reveal any large masses. There was a 15 mm fibroid lesion. She is not anemic. Will monitor for any additional bleeding. She will be seen by gynecology. (2) Endometrial mass Is this a current diagnosis for this admission?: Yes Plan: September 12, 2019 As above. Please also see pelvic ultrasound and CT scan. (3) MEG (acute kidney injury) Is this a current diagnosis for this admission?: Yes Plan: September 12, 2019 The patient actually reports eating and drinking normally. She is on lisinopril and hydrochlorothiazide. This could be related to medications. It is likely that she is volume depleted as her blood pressure is on the low side. We will give IV fluids and I will have Dr. Polk see the patient. (4) Hypertension Qualifiers: Hypertension type: essential hypertension Qualified Code(s): I10 - Essential (primary) hypertension Is this a current diagnosis for this admission?: Yes Plan: September 12, 2019 The patient normally is on multiple blood pressure medications including metoprolol, Norvasc and lisinopril with hydrochlorothiazide. Because of her blood pressure we will put parameters on the metoprolol and the Norvasc. I am holding the lisinopril with hydrochlorothiazide because of the acute kidney injury. We will continue to monitor serial vital signs. (5) Depression Qualifiers: Depression Type: unspecified Qualified Code(s): F32.9 - Major depressive disorder, single episode, unspecified Is this a current diagnosis for this admission?: Yes Plan: September 12, 2019 Continue Zoloft (6) Insomnia Qualifiers: Insomnia type: unspecified Qualified Code(s): G47.00 - Insomnia, unspecified Is this a current diagnosis for this admission?: Yes Plan: September 12, 2019 Continue trazodone - Time Time Spent with patient: 35 or more minutes Medications reviewed and adjusted accordingly: Yes Anticipated discharge: Home - Inpatient Certification Based on my medical assessment, after consideration of the patient's comorbidities, presenting symptoms, or acuity I expect that the services needed warrant INPATIENT care.: Yes I certify that my determination is in accordance with my understanding of Medicare's requirements for reasonable and necessary INPATIENT services [42 CFR 412.3e].: Yes Medical Necessity: Need For IV Fluids, Risk of Complication if Not Cared For in Hospital Post Hospital Care: D/C Golf [employer] Manager Documentation
[2019-09-12] MEDS: TRAZODONE HCL 50 MG TABLET PO SCH (21:43)
[2019-09-12] MEDS: FAMOTIDINE 20 MG TABLET PO SCH (21:43)
[2019-09-12] MEDS: HYDROCODONE/ACETAMINOPHEN 5-325 MG TABLET PO PRN (21:55)
[2019-09-12] MEDS ORDERED: METOPROLOL TARTRATE 50 MG TABLET PO SCH (22:00)
[2019-09-12 22:04] LABS: APPEARANCE,URINE CLEAR; BILIRUBIN,URINE NEGATIVE (NEGATIVE); COLOR,URINE STRAW; GLUCOSE, URINE NEGATIVE (NEGATIVE); KETONES,URINE NEGATIVE (NEGATIVE); LEUKOCYTE ESTERASE,URINE NEGATIVE (NEGATIVE); NITRITE,URINE NEGATIVE (NEGATIVE); PROTEIN,URINE NEGATIVE (NEGATIVE); URINE SPECIFIC GRAVITY 1.004; UROBILINOGEN,URINE NEGATIVE mg/dL (<2.0)
[2019-09-13] MEDS: HYDROCODONE/ACETAMINOPHEN 5-325 MG TABLET PO PRN ×3 (03:19→19:50)
[2019-09-13] MEDS: NORMAL SALINE 1000 ML 1,000 ML IV PRN ×2 (03:21→10:04)
[2019-09-13 05:15] LABS: ABSOLUTE EOSINOPHILS # (AUTO) 0.1 10^3/uL (0.0-0.6); ABSOLUTE LYMPHOCYTES (AUTO) 2.9 10^3/uL (0.5-4.7); ABSOLUTE MONOCYTES (AUTO) 0.5 10^3/uL (0.1-1.4); ABSOLUTE NEUT (AUTO) 3.9 10^3/uL (1.7-8.2); BASOPHILS % (AUTO) 0.5 % (0-2); HEMATOCRIT 31.4 % (36.0-47.0); HEMOGLOBIN 11.1 g/dL (12.0-15.5); LYMPHOCYTES % (AUTO) 38.8 % (13-45); MEAN CORPUSCULAR HEMOGLOBIN 30.6 pg (27.0-33.4); MEAN CORPUSCULAR HGB CONC 35.3 g/dL (32.0-36.0); MEAN CORPUSCULAR VOLUME 87 fl (80-97); MONOCYTES % (AUTO) 6.3 % (3-13); PLATELET COUNT 213 10^3/uL (150-450); RED BLOOD COUNT 3.62 10^6/uL (3.72-5.28); RED CELL DISTRIBUTION WIDTH 13.3 % (11.5-14.0); SEGMENTED NEUTROPHILS % (AUTO) 52.4 % (42-78); TOTAL CELLS COUNTED % (AUTO) 100 %; WHITE BLOOD COUNT 7.4 10^3/uL (4.0-10.5)
[2019-09-13 05:44] LABS: ALBUMIN 2.9 g/dL (3.5-5.0); ANION GAP 5 (5-19); BLOOD UREA NITROGEN 50 mg/dL (7-20); CALCIUM 8.4 mg/dL (8.4-10.2); CARBON DIOXIDE 20 mmol/L (22-30); CHLORIDE 112 mmol/L (98-107); GLUCOSE 113 mg/dL (75-110); PHOSPHORUS 4.3 mg/dL (2.5-4.5); POTASSIUM 3.8 mmol/L (3.6-5.0)
[2019-09-13] MEDS ORDERED: AMLODIPINE BESYLATE 5 MG TABLET PO SCH (10:00)
[2019-09-13] MEDS: FAMOTIDINE 20 MG TABLET PO SCH ×2 (10:04→21:29)
[2019-09-13] MEDS: SERTRALINE HCL 50 MG TABLET PO SCH (10:05)
[2019-09-13] MEDS: DOCUSATE SODIUM 100 MG/10 ML UDC PO SCH ×2 (10:06→18:10)
--- NOTE | 2019-09-13 11:39 | PDOC CONSULTATION ---
Consultation Consult Date: 09/13/19 Provider Consulted: ERIN GOMEZ Consult reason:: vaginal bleeding History of Present Illness Admission Date/PCP: 09/12/19 16:54 VANDANA RAMIREZ History of Present Illness: PANFILO CALVIN is a 64 year old female with vaginal bleeding and a thickened endometrium with a possible sub mucous fibroid. Pt has renal failure. I reviewed her imaging and labs. Because of current guidelines we are only doing life or procedures in the OR and her renal failure needs to be resolved before vaginal bleeding is addressed. I recommend provera either 20mg po tid or 450mg depo provera IM until we can address the vaginal bleeding. When she is discharged we will seen her in our office for therapy. Past Medical History Cardiac Medical History: Reports: Hypertension Denies: Congestive Heart Failure, Coronary Artery Disease, Myocardial Infarction Pulmonary Medical History: Denies: Asthma, Bronchitis, Chronic Obstructive Pulmonary Disease (COPD), Pneumonia Neurological Medical History: Denies: Seizures GI Medical History: Reports: Diverticulitis - Treated at a hospital in [place], [place] last year Musculoskeltal Medical History: Denies: Arthritis Psychiatric Medical History: Reports: Attention Deficit Hyperactivity Disorder, Depression Social History Lives with: Alone Smoking Status: Never Smoker Electronic Cigarette use?: No Frequency of Alcohol Use: None Hx Recreational Drug Use: No Hx Prescription Drug Abuse: No - Advance Directive Resuscitation Status: Full Code Family History Family History: None, CAD, CVA, DM, Hyperlipidemia, Hypertension, Malignancy Parental Family History Reviewed: Yes Children Family History Reviewed: Unknown Sibling(s) Family History Reviewed.: Unknown Medication/Allergy Home Medications: Amlodipine Besylate [Norvasc 5 mg Tablet] 5 mg PO DAILY 09/12/19 Dextroamphetamine/Amphetamine [Adderall 10 mg Tablet] 10 mg PO BID 09/12/19 Lisinopril/Hydrochlorothiazide [Lisinopril-Hctz 20-12.5 mg Tab] 1 tab PO Q12 09/12/19 Metoprolol Tartrate [Lopressor 50 mg Tablet] 50 mg PO Q12 09/12/19 Sertraline HCl [Zoloft 50 mg Tablet] 50 mg PO DAILY 09/12/19 Trazodone HCl 150 mg PO QHS 09/12/19 Allergies/Adverse Reactions: codeine [Codeine] Allergy (Intermediate, Verified 09/12/19 14:37) HIVES AND BAD MUSCLE SPASMS Penicillins Allergy (Intermediate, Verified 09/12/19 14:37) HIVES AND BAD MUSCLE SPASMS Physical Exam - Physical Exam Vital Signs: Temp Pulse Resp BP Pulse Ox 97.2 F 51 L 17 106/52 L 93 09/13/19 07:37 09/13/19 08:18 09/13/19 08:18 09/13/19 07:37 09/13/19 08:18 Intake & Output 09/12/19 09/13/19 09/14/19 06:59 06:59 06:59 Intake Total 222 1000 Output Total 850 Balance -628 1000 Weight 96.4 kg Result Laboratory Results: 09/13/19 04:14 09/13/19 04:14 09/12/19 09/12/19 09/12/19 14:55 14:55 21:40 WBC 10.9 H RBC 4.25 Hgb 13.1 Hct 36.5 MCV 86 MCH 30.8 MCHC 35.8 RDW 13.5 Plt Count 310 Seg Neutrophils % 71.1 Sodium 132.2 L Potassium 3.8 Chloride 102 Carbon Dioxide 21 L Anion Gap 9 BUN 58 H Creatinine 3.82 H Est GFR ( Amer) 14 L Glucose 139 H Calcium 9.4 Phosphorus Magnesium Total Bilirubin 0.6 AST 16 Alkaline Phosphatase 106 Total Protein 7.0 Albumin 3.8 TSH Urine Color STRAW Urine Appearance CLEAR Urine pH 6.0 Ur Specific [place] 1.004 Urine Protein NEGATIVE Urine Glucose (UA) NEGATIVE Urine Ketones NEGATIVE Urine Blood LARGE H Urine Nitrite NEGATIVE Ur Leukocyte Esterase NEGATIVE Urine WBC (Auto) 3 Urine RBC (Auto) 2 09/13/19 09/13/19 09/13/19 04:14 04:14 04:14 WBC 7.4 RBC 3.62 L Hgb 11.1 L Hct 31.4 L MCV 87 MCH 30.6 MCHC 35.3 RDW 13.3 Plt Count 213 Seg Neutrophils % 52.4 Sodium 137.1 Potassium 3.8 Chloride 112 H Carbon Dioxide 20 L Anion Gap 5 BUN 50 H Creatinine 2.99 H Est GFR ( Amer) 19 L Glucose 113 H Calcium 8.4 Phosphorus 4.3 Magnesium 2.2 Total Bilirubin AST Alkaline Phosphatase Total Protein Albumin 2.9 L TSH 2.03 Urine Color Urine Appearance Urine pH Ur Specific [place] Urine Protein Urine Glucose (UA) Urine Ketones Urine Blood Urine Nitrite Ur Leukocyte Esterase Urine WBC (Auto) Urine RBC (Auto) Impressions: Transvaginal US 09/12/19 14:41 IMPRESSION: Thickened endometrial stripe with endometrial mass versus submucosal fibroid along the lower uterine segment. Ovaries not visualized due to adnexal bowel gas No free pelvic fluid Abdomen/Pelvis CT 09/12/19 16:06 IMPRESSION: 1. No acute abnormality in the abdomen or pelvis to explain the patient's symptoms. 2. No renal or ureteral calculi. No hydronephrosis. 3. Appendix is normal. 4. Colonic diverticulosis without evidence of diverticulitis. 5. Postoperative changes of gastric bypass without evidence of acute complication. Assessment & Plan - Diagnosis (1) Vaginal bleeding Is this a current diagnosis for this admission?: Yes - Plan Summary Plan Summary: provera as needed and follow up in our office when discharged
--- NOTE | 2019-09-13 12:31 | PDOC CONSULTATION ---
Consultation Consult Date: 09/13/19 Provider Consulted: Vasyl DOTSON Consult reason:: MEG History of Present Illness Admission Date/PCP: 09/12/19 16:54 VANDANA RAMIREZ History of Present Illness: PANFILO CALVIN is a 64 year old female with history of HTN and depression. She came to the ER due vaginal bleeding that started 3 days ago. In the ER she was also found to have a creatinine of 3.82, sodium of 132 and hypotensive. She was started on normal saline. Had a abdominal CT that was normal. She was then admitted to the hospital. lisinopril and HCTZ were stopped. Amlodipine and metoprolol had special parameters placed so that her bp did not drop further. She claims that she had been eating and drinking just fine prior to admission. She denies fevers or chills. Has not been coughing or having sputum production. No recent antibiotic use. She also denies nausea, vomiting, diarrhea. Only significant history is that she was started on HCTZ about two months ago. She also only drinks 16 ounces of water a day. Past Medical History Cardiac Medical History: Denies: Coronary Artery Disease, Myocardial Infarction Pulmonary Medical History: Denies: Asthma, Bronchitis, Chronic Obstructive Pulmonary Disease (COPD), Pneumonia Neurological Medical History: Denies: Seizures GI Medical History: Reports: Diverticulitis - Treated at a hospital in [place], [place] last year Musculoskeltal Medical History: Denies: Arthritis Psychiatric Medical History: Reports: Attention Deficit Hyperactivity Disorder, Depression Past Surgical History Past Surgical History: Reports: Cholecystectomy, Gastric Bypass Surgery, Other - Breast reduction Social History Lives with: Alone Smoking Status: Never Smoker Electronic Cigarette use?: No Frequency of Alcohol Use: None Hx Recreational Drug Use: No Hx Prescription Drug Abuse: No - Advance Directive Resuscitation Status: Full Code Family History Parental Family History Reviewed: Yes Children Family History Reviewed: Unknown Sibling(s) Family History Reviewed.: Unknown Medication/Allergy Home Medications: Amlodipine Besylate [Norvasc 5 mg Tablet] 5 mg PO DAILY 09/12/19 Dextroamphetamine/Amphetamine [Adderall 10 mg Tablet] 10 mg PO BID 09/12/19 Lisinopril/Hydrochlorothiazide [Lisinopril-Hctz 20-12.5 mg Tab] 1 tab PO Q12 09/12/19 Metoprolol Tartrate [Lopressor 50 mg Tablet] 50 mg PO Q12 09/12/19 Sertraline HCl [Zoloft 50 mg Tablet] 50 mg PO DAILY 09/12/19 Trazodone HCl 150 mg PO QHS 09/12/19 Allergies/Adverse Reactions: codeine [Codeine] Allergy (Intermediate, Verified 09/12/19 14:37) HIVES AND BAD MUSCLE SPASMS Penicillins Allergy (Intermediate, Verified 09/12/19 14:37) HIVES AND BAD MUSCLE SPASMS Review of Systems Constitutional: PRESENT: weakness. ABSENT: anorexia, chills, fever(s), night sweats Eyes: ABSENT: visual disturbances Ears: ABSENT: hearing changes Cardiovascular: ABSENT: chest pain, dyspnea on exertion, edema, orthropnea, palpitations Respiratory: ABSENT: cough, dyspnea, hemoptysis, sputum Gastrointestinal: ABSENT: abdominal pain, constipation, diarrhea, nausea, vomiting Genitourinary: PRESENT: hematuria - -due to vaginal discharge. ABSENT: difficulty urinating, dysuria, nocturia Musculoskeletal: ABSENT: back pain Neurological: PRESENT: dizziness, weakness. ABSENT: confusion Physical Exam Vital Signs: Temp Pulse Resp BP Pulse Ox 97.2 F 51 L 17 106/52 L 93 09/13/19 07:37 09/13/19 08:18 09/13/19 08:18 09/13/19 07:37 09/13/19 08:18 Intake & Output 09/12/19 09/13/19 09/14/19 06:59 06:59 06:59 Intake Total 222 1000 Output Total 850 Balance -628 1000 Weight 96.4 kg General appearance: PRESENT: no acute distress, well-developed, well-nourished Mouth exam: PRESENT: dry mucosa, neck supple. ABSENT: moist Neck exam: ABSENT: JVD, tracheal deviation Respiratory exam: PRESENT: clear to auscultation melissa. ABSENT: rales, rhonchi, wheezes GI/Abdominal exam: PRESENT: soft. ABSENT: tenderness Extremities exam: ABSENT: pedal edema, tenderness, +1 edema, +2 edema Musculoskeletal exam: PRESENT: normal inspection. ABSENT: tenderness Neurological exam: PRESENT: alert, awake, oriented to person, oriented to place, oriented to time, oriented to situation Skin exam: PRESENT: dry, intact, warm. ABSENT: cyanosis Results Laboratory Results: 09/13/19 04:14 09/13/19 04:14 09/12/19 09/12/19 09/12/19 14:55 14:55 21:40 WBC 10.9 H RBC 4.25 Hgb 13.1 Hct 36.5 MCV 86 MCH 30.8 MCHC 35.8 RDW 13.5 Plt Count 310 Seg Neutrophils % 71.1 Sodium 132.2 L Potassium 3.8 Chloride 102 Carbon Dioxide 21 L Anion Gap 9 BUN 58 H Creatinine 3.82 H Est GFR ( Amer) 14 L Glucose 139 H Calcium 9.4 Phosphorus Magnesium Total Bilirubin 0.6 AST 16 Alkaline Phosphatase 106 Total Protein 7.0 Albumin 3.8 TSH Urine Color STRAW Urine Appearance CLEAR Urine pH 6.0 Ur Specific [place] 1.004 Urine Protein NEGATIVE Urine Glucose (UA) NEGATIVE Urine Ketones NEGATIVE Urine Blood LARGE H Urine Nitrite NEGATIVE Ur Leukocyte Esterase NEGATIVE Urine WBC (Auto) 3 Urine RBC (Auto) 2 09/13/19 09/13/19 09/13/19 04:14 04:14 04:14 WBC 7.4 RBC 3.62 L Hgb 11.1 L Hct 31.4 L MCV 87 MCH 30.6 MCHC 35.3 RDW 13.3 Plt Count 213 Seg Neutrophils % 52.4 Sodium 137.1 Potassium 3.8 Chloride 112 H Carbon Dioxide 20 L Anion Gap 5 BUN 50 H Creatinine 2.99 H Est GFR ( Amer) 19 L Glucose 113 H Calcium 8.4 Phosphorus 4.3 Magnesium 2.2 Total Bilirubin AST Alkaline Phosphatase Total Protein Albumin 2.9 L TSH 2.03 Urine Color Urine Appearance Urine pH Ur Specific [place] Urine Protein Urine Glucose (UA) Urine Ketones Urine Blood Urine Nitrite Ur Leukocyte Esterase Urine WBC (Auto) Urine RBC (Auto) Impressions: Transvaginal US 09/12/19 14:41 IMPRESSION: Thickened endometrial stripe with endometrial mass versus submucosal fibroid along the lower uterine segment. Ovaries not visualized due to adnexal bowel gas No free pelvic fluid Abdomen/Pelvis CT 09/12/19 16:06 IMPRESSION: 1. No acute abnormality in the abdomen or pelvis to explain the patient's symptoms. 2. No renal or ureteral calculi. No hydronephrosis. 3. Appendix is normal. 4. Colonic diverticulosis without evidence of diverticulitis. 5. Postoperative changes of gastric bypass without evidence of acute complication. Assessment & Plan - Diagnosis (1) MEG (acute kidney injury) Is this a current diagnosis for this admission?: Yes Plan: nonoliguric, due to dehydration from the HCTZ and poor hydration. Other factors affecting her kidneys include the low bp from the dehydration. CT ruled out an obstruction. Continuing normal saline but decreasing the rate down to 125mL an hour. Continue off lisinopril and HCTZ. Recommend that at discharge HCTZ is left off and a different bp medication is used to prevent dehydration. Discussed with her proper hydration. Continue to monitor with labs. (2) Hyponatremia Plan: Most likely due to HCTZ (3) Hypertension Qualifiers: Hypertension type: essential hypertension Qualified Code(s): I10 - Essential (primary) hypertension Is this a current diagnosis for this admission?: Yes Plan: recommend not placing her on HCTZ when discharged. (4) Depression Qualifiers: Depression Type: unspecified Qualified Code(s): F32.9 - Major depressive disorder, single episode, unspecified Is this a current diagnosis for this admission?: Yes Plan: per hospitalist (5) Endometrial mass Is this a current diagnosis for this admission?: Yes Plan: per ARMORED MACHINE OPERATOR (6) Post-menopausal bleeding Plan: per director china (7) Vaginal bleeding Is this a current diagnosis for this admission?: Yes Plan: per director china - Notes Notes: case was discussed with Dr. Dotson.
--- NOTE | 2019-09-13 13:44 | PDOC PROGRESS REPORT ---
Subjective Progress Note for:: 09/13/19 Subjective:: PANFILO CALVIN is a 64 year old female with a history of hypertension and depression who was admitted for 228 with acute kidney injury and vaginal bleeding. Patient was seen on morning rounds. She was found resting in bed, comfortably, on room air. She is just finished her breakfast. She reports continued vaginal bleeding and her usual lower abdominal/pelvic discomfort. Otherwise, she denies all complaints; specifically, fever, chills, chest pain, palpitations, dyspnea, nausea and vomiting. She has no specific questions or concerns at this time. No concerns per nursing. Reason For Visit: ACUTE KIDNEY FAILURE, VAGINAL BLEEDING Physical Exam Vital Signs: Temp Pulse Resp BP Pulse Ox 97.2 F 54 L 18 91/54 L 95 09/13/19 11:47 09/13/19 11:47 09/13/19 11:47 09/13/19 11:47 09/13/19 11:47 Intake & Output 09/12/19 09/13/19 09/14/19 06:59 06:59 06:59 Intake Total 222 1000 Output Total 850 Balance -628 1000 Weight 96.4 kg General appearance: PRESENT: no acute distress, cooperative, disheveled, obese, well-developed, well-nourished Head exam: PRESENT: atraumatic, normocephalic Eye exam: PRESENT: conjunctiva pink, EOMI, PERRLA. ABSENT: scleral icterus Mouth exam: PRESENT: moist, tongue midline Respiratory exam: PRESENT: clear to auscultation melissa, symmetrical, unlabored. ABSENT: rales, rhonchi, wheezes Cardiovascular exam: PRESENT: RRR, +S1, +S2. ABSENT: diastolic murmur, rubs, systolic murmur Vascular exam: PRESENT: normal capillary refill GI/Abdominal exam: PRESENT: normal bowel sounds, soft, tenderness. ABSENT: distended, guarding, mass, organolmegaly, rebound Rectal exam: PRESENT: deferred Extremities exam: PRESENT: full ROM. ABSENT: calf tenderness, clubbing, pedal edema Neurological exam: PRESENT: alert, awake, oriented to person, oriented to place, oriented to time, oriented to situation, CN II-XII grossly intact. ABSENT: motor sensory deficit Psychiatric exam: PRESENT: appropriate affect, normal mood. ABSENT: homicidal ideation, suicidal ideation Skin exam: PRESENT: dry, intact, warm. ABSENT: cyanosis, rash Results Laboratory Results: 09/13/19 04:14 09/13/19 04:14 09/12/19 09/12/19 09/12/19 14:55 14:55 21:40 WBC 10.9 H RBC 4.25 Hgb 13.1 Hct 36.5 MCV 86 MCH 30.8 MCHC 35.8 RDW 13.5 Plt Count 310 Seg Neutrophils % 71.1 Sodium 132.2 L Potassium 3.8 Chloride 102 Carbon Dioxide 21 L Anion Gap 9 BUN 58 H Creatinine 3.82 H Est GFR ( Amer) 14 L Glucose 139 H Calcium 9.4 Phosphorus Magnesium Total Bilirubin 0.6 AST 16 Alkaline Phosphatase 106 Total Protein 7.0 Albumin 3.8 TSH Urine Color STRAW Urine Appearance CLEAR Urine pH 6.0 Ur Specific [place] 1.004 Urine Protein NEGATIVE Urine Glucose (UA) NEGATIVE Urine Ketones NEGATIVE Urine Blood LARGE H Urine Nitrite NEGATIVE Ur Leukocyte Esterase NEGATIVE Urine WBC (Auto) 3 Urine RBC (Auto) 2 09/13/19 09/13/19 09/13/19 04:14 04:14 04:14 WBC 7.4 RBC 3.62 L Hgb 11.1 L Hct 31.4 L MCV 87 MCH 30.6 MCHC 35.3 RDW 13.3 Plt Count 213 Seg Neutrophils % 52.4 Sodium 137.1 Potassium 3.8 Chloride 112 H Carbon Dioxide 20 L Anion Gap 5 BUN 50 H Creatinine 2.99 H Est GFR ( Amer) 19 L Glucose 113 H Calcium 8.4 Phosphorus 4.3 Magnesium 2.2 Total Bilirubin AST Alkaline Phosphatase Total Protein Albumin 2.9 L TSH 2.03 Urine Color Urine Appearance Urine pH Ur Specific [place] Urine Protein Urine Glucose (UA) Urine Ketones Urine Blood Urine Nitrite Ur Leukocyte Esterase Urine WBC (Auto) Urine RBC (Auto) Impressions: Transvaginal US 09/12/19 14:41 IMPRESSION: Thickened endometrial stripe with endometrial mass versus submucosal fibroid along the lower uterine segment. Ovaries not visualized due to adnexal bowel gas No free pelvic fluid Abdomen/Pelvis CT 09/12/19 16:06 IMPRESSION: 1. No acute abnormality in the abdomen or pelvis to explain the patient's symptoms. 2. No renal or ureteral calculi. No hydronephrosis. 3. Appendix is normal. 4. Colonic diverticulosis without evidence of diverticulitis. 5. Postoperative changes of gastric bypass without evidence of acute complication. Assessment and Plan - Diagnosis (1) MEG (acute kidney injury) Is this a current diagnosis for this admission?: Yes Plan: Creatinine is improved; 3.82-> 2.99 with normal baseline of 1.07. Patient is admitted [facility] on continuous cardiac telemetry. Her lisinopril/HCTZ have been discontinued. Nephrology has been consulted; have reviewed notes and agree with recommendati ons. Continue gentle IV fluids. Encourage p.o. fluids. Follow-up chemistry. (2) Vaginal bleeding Is this a current diagnosis for this admission?: Yes Plan: CT scan and pelvic ultrasound did not reveal any large masses. There was a 15 mm fibroid lesion. Gynecology services were consulted. Have reviewed Dr. Mendez's note and implemented recommendation for Provera 20 mg p.o. 3 times daily. Patient will follow-up in the clinic after discharge for additional evaluation and recommendations. Will start patient on MVI with iron. (3) Endometrial mass Is this a current diagnosis for this admission?: Yes Plan: As above. Please also see pelvic ultrasound and CT scan. CENTRAL STERILIZATION TECHNICIAN is consulted; who reviewed Dr. Mendez's note. Patient to follow-up as an outpatient for further evaluation and management. (4) Hypertension Qualifiers: Hypertension type: essential hypertension Qualified Code(s): I10 - Es sential (primary) hypertension Is this a current diagnosis for this admission?: Yes Plan: Currently hypotensive. Patient's lisinopril and hydrochlorothiazide have been discontinued. Toprol and amlodipine are placed on hold. Continue IV fluids. Cardiac diet. When blood pressures dictate resumption of antihypertensives; patient should not be placed on hydrochlorothiazide due to MEG. (5) Insomnia Qualifiers: Insomnia type: unspecified Qualified Code(s): G47.00 - Insomnia, unspecified Is this a current diagnosis for this admission?: Yes Plan: Continue home dose trazodone. (6) Depression Qualifiers: Depression Type: unspecified Qualified Code(s): F32.9 - Major depressive disorder, single episode, unspecified Is this a current diagnosis for this admission?: Yes Plan: Stable. Continue Zoloft (7) Hyponatremia Is this a current diagnosis for this admission?: Yes Plan: Resolved. Likely secondary to dehydration and hydrochlorothiazide. - Time Time Spent with patient: 25-34 minutes Medications reviewed and adjusted accordingly: Yes Anticipated discharge: Home Within: within 48 hours - pending resolution of MEG
[2019-09-13] MEDS: MEDROXYPROGESTERONE ACET 10 MG TABLET PO SCH ×2 (18:08→19:00)
[2019-09-13] MEDS: TRAZODONE HCL 50 MG TABLET PO SCH (21:29)
[2019-09-14] MEDS: NORMAL SALINE 1000 ML 1,000 ML IV PRN ×3 (02:00→17:49)
[2019-09-14] MEDS: HYDROCODONE/ACETAMINOPHEN 5-325 MG TABLET PO PRN ×4 (04:18→20:14)
[2019-09-14 06:17] LABS: ALBUMIN 3.2 g/dL (3.5-5.0); ANION GAP 7 (5-19); BLOOD UREA NITROGEN 41 mg/dL (7-20); CALCIUM 8.8 mg/dL (8.4-10.2); CARBON DIOXIDE 19 mmol/L (22-30); CHLORIDE 115 mmol/L (98-107); GLUCOSE 106 mg/dL (75-110); PHOSPHORUS 2.7 mg/dL (2.5-4.5); POTASSIUM 4.2 mmol/L (3.6-5.0)
[2019-09-14 07:12] LABS: ABSOLUTE BASOPHILS # (AUTO) 0.1 10^3/uL (0.0-0.2); ABSOLUTE EOSINOPHILS # (AUTO) 0.2 10^3/uL (0.0-0.6); ABSOLUTE LYMPHOCYTES (AUTO) 3.2 10^3/uL (0.5-4.7); ABSOLUTE MONOCYTES (AUTO) 0.5 10^3/uL (0.1-1.4); ABSOLUTE NEUT (AUTO) 5.1 10^3/uL (1.7-8.2); BASOPHILS % (AUTO) 0.6 % (0-2); EOSINOPHILS % (AUTO) 1.7 % (0-6); HEMATOCRIT 35.2 % (36.0-47.0); HEMOGLOBIN 12.4 g/dL (12.0-15.5); LYMPHOCYTES % (AUTO) 35.5 % (13-45); MEAN CORPUSCULAR HEMOGLOBIN 30.3 pg (27.0-33.4); MEAN CORPUSCULAR HGB CONC 35.1 g/dL (32.0-36.0); MEAN CORPUSCULAR VOLUME 86 fl (80-97); MONOCYTES % (AUTO) 5.4 % (3-13); PLATELET COUNT 226 10^3/uL (150-450); RED BLOOD COUNT 4.08 10^6/uL (3.72-5.28); RED CELL DISTRIBUTION WIDTH 13.9 % (11.5-14.0); SEGMENTED NEUTROPHILS % (AUTO) 56.8 % (42-78); TOTAL CELLS COUNTED % (AUTO) 100 %; WHITE BLOOD COUNT 9.1 10^3/uL (4.0-10.5)
[2019-09-14] MEDS: DOCUSATE SODIUM 100 MG/10 ML UDC PO SCH ×2 (09:47→17:41)
[2019-09-14] MEDS: FAMOTIDINE 20 MG TABLET PO SCH ×2 (09:50→21:53)
[2019-09-14] MEDS: MEDROXYPROGESTERONE ACET 10 MG TABLET PO SCH ×3 (09:50→17:49)
[2019-09-14] MEDS: MULTIVITAMINS W-IRON TABLET, CHEWABLE PO SCH (09:50)
[2019-09-14] MEDS: SERTRALINE HCL 50 MG TABLET PO SCH (09:50)
--- NOTE | 2019-09-14 13:12 | PDOC PROGRESS REPORT ---
Subjective Progress Note for:: 09/14/19 Subjective:: No adverse events overnight. Urine output is been good. Appetite is improving. She feels better overall. She says she is been able to rest intermittently. She is not tried to really get up out of bed much yet. Reason For Visit: ACUTE KIDNEY FAILURE, VAGINAL BLEEDING Physical Exam Vital Signs: Temp Pulse Resp BP Pulse Ox 97.4 F 67 18 131/54 H 97 09/14/19 11:49 09/14/19 11:49 09/14/19 11:49 09/14/19 11:49 09/14/19 11:49 Intake & Output 09/13/19 09/14/19 09/15/19 06:59 06:59 06:59 Intake Total 222 2954 979 Output Total 850 1900 Balance -628 1054 979 Weight 96.4 kg 97.2 kg General appearance: PRESENT: no acute distress, cooperative, disheveled, morbidly obese Respiratory exam: PRESENT: clear to auscultation melissa, symmetrical, unlabored. ABSENT: accessory muscle use, chest wall tenderness, crackles, prolonged expiratory phas, retraction, rhonchi, tachypnea, wheezes Cardiovascular exam: PRESENT: RRR, +S1, +S2 Pulses: PRESENT: normal carotid pulses Vascular exam: PRESENT: normal capillary refill GI/Abdominal exam: PRESENT: normal bowel sounds, soft. ABSENT: distended, guarding, rebound, tenderness Extremities exam: ABSENT: clubbing, pedal edema Musculoskeletal exam: PRESENT: normal inspection. ABSENT: deformity Neurological exam: PRESENT: alert, awake, oriented to person, oriented to place, oriented to situation Psychiatric exam: PRESENT: flat affect Skin exam: PRESENT: dry, warm Results Laboratory Results: 09/14/19 06:10 09/14/19 05:32 09/14/19 09/14/19 09/14/19 05:32 05:32 06:10 WBC Cancelled 9.1 RBC Cancelled 4.08 Hgb Cancelled 12.4 Hct Cancelled 35.2 L MCV Cancelled 86 MCH Cancelled 30.3 MCHC Cancelled 35.1 RDW Cancelled 13.9 Plt Count Cancelled 226 Seg Neutrophils % Cancelled 56.8 Sodium 141.1 Potassium 4.2 Chloride 115 H Carbon Dioxide 19 L Anion Gap 7 BUN 41 H Creatinine 1.95 H Est GFR ( Amer) 31 L Glucose 106 Calcium 8.8 Phosphorus 2.7 Magnesium 2.2 Albumin 3.2 L Impressions: Transvaginal US 09/12/19 14:41 IMPRESSION: Thickened endometrial stripe with endometrial mass versus submucosal fibroid along the lower uterine segment. Ovaries not visualized due to adnexal bowel gas No free pelvic fluid Abdomen/Pelvis CT 09/12/19 16:06 IMPRESSION: 1. No acute abnormality in the abdomen or pelvis to explain the patient's symptoms. 2. No renal or ureteral calculi. No hydronephrosis. 3. Appendix is normal. 4. Colonic diverticulosis without evidence of diverticulitis. 5. Postoperative changes of gastric bypass without evidence of acute complication. Assessment and Plan - Diagnosis (1) MEG (acute kidney injury) Is this a current diagnosis for this admission?: Yes Plan: Responding well to IV fluids. Creatinine continuing to trend down. We will gi ve her fluids for another day and see where her creatinine is tomorrow. (2) Hypertension Qualifiers: Hypertension type: essential hypertension Qualified Code(s): I10 - Essential (primary) hypertension Is this a current diagnosis for this admission?: Yes Plan: Well-controlled (3) Hyponatremia Is this a current diagnosis for this admission?: Yes Plan: Resolved (4) Vaginal bleeding Is this a current diagnosis for this admission?: Yes Plan: She has been started on Provera by gynecology. She is not having any more bleeding now. We will follow-up with gynecology as an outpatient. - Time Time Spent with patient: 15-24 minutes
[2019-09-14] MEDS: TRAZODONE HCL 50 MG TABLET PO SCH (21:53)
[2019-09-15] MEDS: NORMAL SALINE 1000 ML 1,000 ML IV PRN ×2 (01:41→09:31)
[2019-09-15 05:09] LABS: ABSOLUTE BASOPHILS # (AUTO) 0.1 10^3/uL (0.0-0.2); ABSOLUTE EOSINOPHILS # (AUTO) 0.1 10^3/uL (0.0-0.6); ABSOLUTE LYMPHOCYTES (AUTO) 2.8 10^3/uL (0.5-4.7); ABSOLUTE MONOCYTES (AUTO) 0.4 10^3/uL (0.1-1.4); ABSOLUTE NEUT (AUTO) 3.4 10^3/uL (1.7-8.2); BASOPHILS % (AUTO) 0.8 % (0-2); HEMATOCRIT 32.5 % (36.0-47.0); HEMOGLOBIN 11.5 g/dL (12.0-15.5); LYMPHOCYTES % (AUTO) 41.6 % (13-45); MEAN CORPUSCULAR HEMOGLOBIN 30.6 pg (27.0-33.4); MEAN CORPUSCULAR HGB CONC 35.4 g/dL (32.0-36.0); MEAN CORPUSCULAR VOLUME 86 fl (80-97); MONOCYTES % (AUTO) 5.5 % (3-13); PLATELET COUNT 223 10^3/uL (150-450); RED BLOOD COUNT 3.76 10^6/uL (3.72-5.28); RED CELL DISTRIBUTION WIDTH 13.8 % (11.5-14.0); SEGMENTED NEUTROPHILS % (AUTO) 50.1 % (42-78); TOTAL CELLS COUNTED % (AUTO) 100 %; WHITE BLOOD COUNT 6.8 10^3/uL (4.0-10.5)
[2019-09-15 05:27] LABS: ALBUMIN 2.9 g/dL (3.5-5.0); BLOOD UREA NITROGEN 24 mg/dL (7-20); CALCIUM 8.6 mg/dL (8.4-10.2); CHLORIDE 118 mmol/L (98-107); GLUCOSE 111 mg/dL (75-110); PHOSPHORUS 2.2 mg/dL (2.5-4.5); POTASSIUM 4.1 mmol/L (3.6-5.0)
[2019-09-15 05:38] LABS: CARBON DIOXIDE 17 mmol/L (22-30)
[2019-09-15 05:39] LABS: ANION GAP 6 (5-19)
[2019-09-15] MEDS: HYDROCODONE/ACETAMINOPHEN 5-325 MG TABLET PO PRN (07:45)
[2019-09-15 07:48] VITALS: BP 140/59
[2019-09-15] MEDS: DOCUSATE SODIUM 100 MG/10 ML UDC PO SCH (09:25)
[2019-09-15] MEDS: MULTIVITAMINS W-IRON TABLET, CHEWABLE PO SCH (09:30)
[2019-09-15] MEDS: MEDROXYPROGESTERONE ACET 10 MG TABLET PO SCH (09:31)
[2019-09-15] MEDS: FAMOTIDINE 20 MG TABLET PO SCH (09:31)
[2019-09-15] MEDS: SERTRALINE HCL 50 MG TABLET PO SCH (09:31)
--- NOTE | 2019-09-15 15:28 | PDOC DISCHARGE SUMMARY ---
Impression - Admit/DC Date/PCP Admission Date/Primary Care Provider: 09/12/19 16:54 VANDANA RAMIREZ Discharge Date: 09/15/19 - Discharge Diagnosis (1) MEG (acute kidney injury) Is this a current diagnosis for this admission?: Yes (2) Hypertension Is this a current diagnosis for this admission?: Yes (3) Hyponatremia Is this a current diagnosis for this admission?: Yes (4) Vaginal bleeding Is this a current diagnosis for this admission?: Yes - Additional Information Resuscitation Status: Full Code Discharge Diet: Cardiac Discharge Activity: Activity As Tolerated Referrals: TWYLA COLLINS MD [ACTIVE STAFF] - (Follow up at earliest available appointment.) MARY BERMUDEZ FNP-C [Primary Care Provider] - Follow up tomorrow Prescriptions: Lisinopril [Prinivil 10 mg Tablet] 10 mg PO DAILY #30 tablet Medroxyprogesterone Acet [Provera 10 mg Tablet] 20 mg PO TID #180 tablet Home Medications: Amlodipine Besylate [Norvasc 5 mg Tablet] 5 mg PO DAILY 09/12/19 Metoprolol Tartrate [Lopressor 50 mg Tablet] 50 mg PO Q12 09/12/19 Sertraline HCl [Zoloft 50 mg Tablet] 50 mg PO DAILY 09/12/19 Trazodone HCl 150 mg PO QHS 09/12/19 Lisinopril [Prinivil 10 mg Tablet] 10 mg PO DAILY #30 tablet 09/15/19 Medroxyprogesterone Acet [Provera 10 mg Tablet] 20 mg PO TID #180 tablet 09/15/19 History of Present Illiness History of Present Illness: PANFILO CALVIN is a 64 year old female with a history of hypertension and depression. She states that she was in her usual state of health until approximately 3 days ago. She began to have constant vaginal bleeding. She states that it was quite heavy. She denied any nausea, vomiting, shaking chills or altered bowel habits. When she presented to the hospital laboratory studies revealed that she had an acute kidney injury with a BUN of 58 and a creatinine of 3.82. There was no anemia and no white blood cell elevation. She will be admitted by the hospitalist service and be seen by nephrology and gynecology. Hospital Course Hospital Course: We stopped her HCTZ and gave her some IV fluids and her creatinine trended back down towards normal. Her blood pressure was well enough controlled with her other medications that she did not require anything else for her blood pressure. She was ambulating independently and eating and drinking without difficulty. Labs and examination were reassuring and she was discharged in stable condition. Physical Exam Vital Signs: Temp Pulse Resp BP Pulse Ox 98.1 F 78 16 140/59 H 98 09/15/19 11:23 09/15/19 11:23 09/15/19 11:23 09/15/19 11:23 09/15/19 11:23 Intake & Output 09/14/19 09/15/19 09/16/19 06:59 06:59 06:59 Intake Total 2954 3934 979 Output Total 1900 3325 Balance 1054 609 979 Weight 97.2 kg 99.3 kg General appearance: PRESENT: no acute distress, cooperative, disheveled, morbidly obese Respiratory exam: PRESENT: clear to auscultation melissa, symmetrical, unlabored. ABSENT: accessory muscle use, chest wall tenderness, crackles, prolonged expiratory phas, retraction, rhonchi, tachypnea, wheezes Cardiovascular exam: PRESENT: RRR, +S1, +S2 Pulses: PRESENT: normal carotid pulses Vascular exam: PRESENT: normal capillary refill GI/Abdominal exam: PRESENT: normal bowel sounds, soft. ABSENT: distended, guarding, rebound, tenderness Extremities exam: ABSENT: clubbing, pedal edema Musculoskeletal exam: PRESENT: normal inspection. ABSENT: deformity Neurological exam: PRESENT: alert, awake, oriented to person, oriented to place, oriented to situation Psychiatric exam: PRESENT: flat affect Skin exam: PRESENT: dry, warm Results Laboratory Results: WBC 6.8 10^3/uL (4.0-10.5) 09/15/19 04:23 RBC 3.76 10^6/uL (3.72-5.28) 09/15/19 04:23 Hgb 11.5 g/dL (12.0-15.5) L 09/15/19 04:23 Hct 32.5 % (36.0-47.0) L 09/15/19 04:23 MCV 86 fl (80-97) 09/15/19 04:23 MCH 30.6 pg (27.0-33.4) 09/15/19 04:23 MCHC 35.4 g/dL (32.0-36.0) 09/15/19 04:23 RDW 13.8 % (11.5-14.0) 09/15/19 04:23 Plt Count 223 10^3/uL (150-450) 09/15/19 04:23 Lymph % (Auto) 41.6 % (13-45) 09/15/19 04:23 [place] % (Auto) 5.5 % (3-13) 09/15/19 04:23 Eos % (Auto) 2.0 % (0-6) 09/15/19 04:23 Baso % (Auto) 0.8 % (0-2) 09/15/19 04:23 Absolute Neuts (auto) 3.4 10^3/uL (1.7-8.2) 09/15/19 04:23 Absolute Lymphs (auto) 2.8 10^3/uL (0.5-4.7) 09/15/19 04:23 Absolute Monos (auto) 0.4 10^3/uL (0.1-1.4) 09/15/19 04:23 Absolute Eos (auto) 0.1 10^3/uL (0.0-0.6) 09/15/19 04:23 Absolute Basos (auto) 0.1 10^3/uL (0.0-0.2) 09/15/19 04:23 Seg Neutrophils % 50.1 % (42-78) 09/15/19 04:23 Platelet Estimate Cancelled 09/14/19 05:32 Sodium 140.7 mmol/L (137-145) 09/15/19 04:23 Potassium 4.1 mmol/L (3.6-5.0) 09/15/19 04:23 Chloride 118 mmol/L (98-107) H 09/15/19 04:23 Carbon Dioxide 17 mmol/L (22-30) L 09/15/19 04:23 Anion Gap 6 (5-19) 09/15/19 04:23 BUN 24 mg/dL (7-20) H 09/15/19 04:23 Creatinine 1.46 mg/dL (0.52-1.25) H 09/15/19 04:23 Est GFR ( Amer) 44 (>60) L 09/15/19 04:23 Est GFR (MDRD) Non-Af 36 (>60) L 09/15/19 04:23 Glucose 111 mg/dL (75-110) H 09/15/19 04:23 Calcium 8.6 mg/dL (8.4-10.2) 09/15/19 04:23 Phosphorus 2.2 mg/dL (2.5-4.5) L 09/15/19 04:23 Magnesium 1.8 mg/dL (1.6-2.3) 09/15/19 04:23 Total Bilirubin 0.6 mg/dL (0.2-1.3) 09/12/19 14:55 Direct Bilirubin 0.3 mg/dL (0.0-0.4) 09/12/19 14:55 Neonat Total Bilirubin Not Reportable 09/12/19 14:55 Neonat Direct Bilirubin Not Reportable 09/12/19 14:55 Neonat Indirect Bili Not Reportable 09/12/19 14:55 AST 16 U/L (14-36) 09/12/19 14:55 ALT 8 U/L (<35) 09/12/19 14:55 Alkaline Phosphatase 106 U/L (38-126) 09/12/19 14:55 Total Protein 7.0 g/dL (6.3-8.2) 09/12/19 14:55 Albumin 2.9 g/dL (3.5-5.0) L 09/15/19 04:23 TSH 2.03 uIU/mL (0.47-4.68) 09/13/19 04:14 Urine Color STRAW 09/12/19 21:40 Urine Appearance CLEAR 09/12/19 21:40 Urine pH 6.0 (5.0-9.0) 09/12/19 21:40 Ur Specific [place] 1.004 09/12/19 21:40 Urine Protein NEGATIVE mg/dL (NEGATIVE) 09/12/19 21:40 Urine Glucose (UA) NEGATIVE mg/dL (NEGATIVE) 09/12/19 21:40 Urine Ketones NEGATIVE mg/dL (NEGATIVE) 09/12/19 21:40 Urine Blood LARGE (NEGATIVE) H 09/12/19 21:40 Urine Nitrite NEGATIVE (NEGATIVE) 09/12/19 21:40 Urine Bilirubin NEGATIVE (NEGATIVE) 09/12/19 21:40 Urine Urobilinogen NEGATIVE mg/dL (<2.0) 09/12/19 21:40 Ur Leukocyte Esterase NEGATIVE (NEGATIVE) 09/12/19 21:40 Urine WBC (Auto) 3 /HPF 09/12/19 21:40 Urine RBC (Auto) 2 /HPF 09/12/19 21:40 Urine Bacteria (Auto) TRACE /HPF 09/12/19 21:40 Squamous Epi Cells Auto 1 /HPF 09/12/19 21:40 Urine Mucus (Auto) RARE /LPF 09/12/19 21:40 Urine Ascorbic Acid NEGATIVE (NEGATIVE) 09/12/19 21:40 Trichomonas (Wet Prep) NO TRICHOMONAS SEEN 09/12/19 15:37 Vaginal WBC FEW WBCS SEEN 09/12/19 15:37 Vaginal RBC 4+ RBCS SEEN 09/12/19 15:37 Vaginal Yeast NO YEAST SEEN 09/12/19 15:37 Chlamydia DNA (PCR) NOT DETECTED (NOT DETECT) 09/12/19 15:37 N.gonorrhoeae DNA (PCR) NOT DETECTED (NOT DETECT) 09/12/19 15:37 Slides for Path Review Cancelled 09/14/19 05:32 Impressions: Transvaginal US 09/12/19 14:41 IMPRESSION: Thickened endometrial stripe with endometrial mass versus submucosal fibroid along the lower uterine segment. Ovaries not visualized due to adnexal bowel gas No free pelvic fluid Abdomen/Pelvis CT 09/12/19 16:06 IMPRESSION: 1. No acute abnormality in the abdomen or pelvis to explain the patient's symptoms. 2. No renal or ureteral calculi. No hydronephrosis. 3. Appendix is normal. 4. Colonic diverticulosis without evidence of diverticulitis. 5. Postoperative changes of gastric bypass without evidence of acute complication. Plan Time Spent: Greater than 30 Minutes Stroke Is this a Stroke Patient?: No Acute Heart Failure - Is this a Heart Failure Patient?: No
== END 2019-09-15 12:06 | disposition home or self-care (01) | DRG 683 ==
LOC: ER 14:29 → EH 16:54 → 3W 18:37
PROVIDERS: ADMIT Hospitalist; ATTEND Registered Nurse
DX: N17.9 Acute kidney failure, unspecified (principal); E87.1 Hypo-osmolality and hyponatremia; N93.9 Abnormal uterine and vaginal bleeding, unspecified; N85.8 Other specified noninflammatory disorders of uterus; E86.0 Dehydration; I10 Essential (primary) hypertension; F32.9 Major depressive disorder, single episode, unspecified; G47.00 Insomnia, unspecified; Z98.84 Bariatric surgery status; Z88.0 Allergy status to penicillin
CPT/HCPCS: 36415; 74176; 76830; 80053; 80069; 81001; 83735; 84443; 85025; 87210; 87491; 87591; 93976; 99285; J3490; J7030

== ENCOUNTER 2019-09-26 16:21 | Emergency (ER) | payer MEDICAID ==
--- NOTE | 2019-09-26 16:51 | ER Document Report ---
ED Medical Screen (RME) - General Chief Complaint: Vaginal Bleeding Stated Complaint: VAGINAL BLEEDING Primary Care Provider: MARY BERMUDEZ FNP-C [Primary Care Provider] - Follow up as needed TRAVEL OUTSIDE OF THE [place] IN LAST 30 DAYS: No - HPI Notes: 09/26/19 16:49 64-year-old female with a history of hypertension depression and was recently discharged on September 14 with MEG and vaginal bleeding presents to the emergency room for vaginal bleeding that restarted again 2 days ago in which she is going through 8-9 pads a day. Patient did have an ultrasound done on September 11 which did show an endometrial mass in which [employer] INST[employer] SUPER[employer] did consult this year outside of the office. Patient has an appointment with [employer] INST[employer]ER SUPERVISOR this upcoming Monday but states she is bleeding too heavy and needs to get checked out today. Patient is also reporting lower abdominal pain. Denies any clotting disorders or bleeding disorders. Has any fevers, chills, chest pain, shortness of breath, nausea vomiting diarrhea. I have greeted and performed a rapid initial assessment of this patient. A comprehensive ED assessment and evaluation of the patient, analysis of test results and completion of the medical decision making process will be conducted by additional ED providers. PHYSICAL EXAMINATION: GENERAL: Well-appearing, well-nourished and in no acute distress. CV: Sinus tachycardia LUNGS: No respiratory distress Musculoskeletal: Normal range of motion NEUROLOGICAL: Normal speech, normal gait. SKIN: Warm, Dry, normal turgor, no rashes or lesions noted. - Related Data Allergies/Adverse Reactions: codeine [Codeine] Allergy (Intermediate, Verified 09/26/19 16:50) HIVES AND BAD MUSCLE SPASMS Penicillins Allergy (Intermediate, Verified 09/26/19 16:50) HIVES AND BAD MUSCLE SPASMS Past Medical History - Past Medical History Cardiac Medical History: Reports: Hx Hypertension Denies: Hx Congestive Heart Failure, Hx Coronary Artery Disease, Hx Heart Attack Pulmonary Medical History: Denies: Hx Asthma, Hx Bronchitis, Hx COPD, Hx Pneumonia Neurological Medical History: Denies: Hx Cerebrovascular Accident, Hx Seizures Renal/ Medical History: Reports: Hx Renal Insufficiency. Denies: Hx Peritoneal Dialysis GI Medical History: Reports: Hx Diverticulitis - Treated at a hospital in [place], [place] last year Musculoskeltal Medical History: Denies Hx Arthritis, Reports Hx Musculoskeletal Trauma Psychiatric Medical History: Reports: Hx Anxiety, Hx Attention Deficit Hyperactivity Disorder, Hx Depression Past Surgical History: Reports: Hx Abdominal Surgery - gastric bypass, Hx Breast Surgery - reduction, Hx Cholecystectomy, Hx Gastric Bypass Surgery, Other - Breast reduction - Immunizations Immunizations up to date: No Hx Diphtheria, Pertussis, Tetanus Vaccination: No Physical Exam - Vital signs Vitals: Temp Pulse Resp BP Pulse Ox 97.7 F 105 H 18 184/92 H 95 09/26/19 16:24 09/26/19 16:24 09/26/19 16:24 09/26/19 16:24 09/26/19 16:24 Course - Vital Signs Vital signs: Temp Pulse Resp BP Pulse Ox 97.7 F 105 H 18 184/92 H 95 09/26/19 16:24 09/26/19 16:24 09/26/19 16:24 09/26/19 16:24 09/26/19 16:24 Doctor's Discharge - Discharge Referrals: MARY BERMUDEZ SECURITY INCIDENT HANDLER-C [Primary Care Provider] - Follow up as needed
[2019-09-26 17:27] LABS: ABSOLUTE BASOPHILS # (AUTO) 0.1 10^3/uL (0.0-0.2); ABSOLUTE EOSINOPHILS # (AUTO) 0.1 10^3/uL (0.0-0.6); ABSOLUTE MONOCYTES (AUTO) 0.4 10^3/uL (0.1-1.4); ABSOLUTE NEUT (AUTO) 4.8 10^3/uL (1.7-8.2); BASOPHILS % (AUTO) 0.7 % (0-2); EOSINOPHILS % (AUTO) 1.6 % (0-6); HEMATOCRIT 33.6 % (36.0-47.0); HEMOGLOBIN 11.8 g/dL (12.0-15.5); LYMPHOCYTES % (AUTO) 27.3 % (13-45); MEAN CORPUSCULAR HEMOGLOBIN 30.3 pg (27.0-33.4); MEAN CORPUSCULAR HGB CONC 35.2 g/dL (32.0-36.0); MEAN CORPUSCULAR VOLUME 86 fl (80-97); PLATELET COUNT 241 10^3/uL (150-450); RED BLOOD COUNT 3.89 10^6/uL (3.72-5.28); SEGMENTED NEUTROPHILS % (AUTO) 65.4 % (42-78); TOTAL CELLS COUNTED % (AUTO) 100 %; WHITE BLOOD COUNT 7.4 10^3/uL (4.0-10.5)
[2019-09-26 17:34] LABS: BILIRUBIN,URINE NEGATIVE (NEGATIVE); GLUCOSE, URINE NEGATIVE (NEGATIVE); KETONES,URINE NEGATIVE (NEGATIVE); LEUKOCYTE ESTERASE,URINE NEGATIVE (NEGATIVE); NITRITE,URINE NEGATIVE (NEGATIVE); PROTEIN,URINE 100 mg/dL (NEGATIVE); URINE SPECIFIC GRAVITY 1.019; UROBILINOGEN,URINE NEGATIVE mg/dL (<2.0)
[2019-09-26 17:36] LABS: APPEARANCE,URINE TURBID; COLOR,URINE RED
[2019-09-26 17:40] LABS: ALBUMIN 3.9 g/dL (3.5-5.0); ALKALINE PHOSPHATASE 95 U/L (38-126); ANION GAP 6 (5-19); ASPARTATE AMINO TRANSFERASE 18 U/L (14-36); BILIRUBIN,TOTAL 0.5 mg/dL (0.2-1.3); BLOOD UREA NITROGEN 15 mg/dL (7-20); CARBON DIOXIDE 23 mmol/L (22-30); CHLORIDE 106 mmol/L (98-107); GLUCOSE 166 mg/dL (75-110); POTASSIUM 3.9 mmol/L (3.6-5.0); TOTAL PROTEIN 6.8 g/dL (6.3-8.2)
--- NOTE | 2019-09-26 17:49 | RADIOLOGY REPORT (SQ) ---
EXAM DESCRIPTION: U/S NON OB PEL TV W/DOPPLER IMAGES COMPLETED DATE/TIME: 09/26/2019 5:35 pm REASON FOR STUDY: vaginal bleeding, +endometrial mass, 8-9pad/day COMPARISON: 09/12/2019 TECHNIQUE: Dynamic and static grayscale images acquired of the pelvis via transvaginal approach and recorded on PACS. Additional selected color Doppler and spectral images recorded. LIMITATIONS: None. FINDINGS: UTERUS: Heterogenous echotexture with scattered tiny calcifications present. Contour nor mal. No mass. ENDOMETRIAL STRIPE: The endometrial stripe is thickened, dilated and heterogenous in appearance. CERVIX: The cervix measures 1.9 cm in length. Small Nabothian cysts, unchanged findings. RIGHT OVARY AND DOPPLER: Normal size. No worrisome masses. Normal arterial vascular flow without evid ence for torsion. LEFT OVARY AND DOPPLER: Not visualized sonographically due to overlying bowel gas. FREE FLUID: None noted. OTHER: No other significant finding. MEASUREMENTS: UTERUS: 7.4 x 5.3 x 6.4 cm ENDOMETRIAL STRIPE: 15 mm RIGHT OVARY: 1.7 x 1.5 x 2.3 cm LEFT OVARY: Not visualized IMPRESSION: 1. As on the prior study dated 09/12/2019, the endometrium is thickened, dilated and hete rogenous in appearance. Further evaluation with MRI pelvis maybe helpful to evaluate for mass. 2. The left ovary is not identified due to overlying bowel gas. 3. Additional findings as above. TECHNICAL DOCUMENTATION: JOB ID: [id number] 2010 [employer]- All Rights Reserved Rev-10/27 Reading location - IP/workstation name: [email or web address]
--- NOTE | 2019-09-26 18:01 | ER Document Report ---
Entered by ALISA JARRETT SCRIBE 09/26/19 1746 Acting as scribe for:MICHAEL DOTY DO ED General - General Chief Complaint: Vaginal Bleeding Stated Complaint: VAGINAL BLEEDING Time Seen by Provider: 09/26/19 17:34 Primary Care Provider: MARY BERMUDEZ FNP-C [Primary Care Provider] - Follow up as needed Information source: Patient Notes: This 64-year-old female presents to the emergency department complaining of vaginal bleeding that began two days ago. Patient reports associated suprapubic pain. Patient states that she has gone through 10 pads a day since she started bleeding. Patient says that she was hospitalized here 10 days ago for 3 days. Patient said she was hospitalized for similar bleeding and she was told that her "kidney's were shot". Patient said she was discharged home with no bleeding at that time and started bleeding 2 days ago. Patient reports that she has a consult appointment with the restorer lace and textiles in four days. Patient denies chest pain, shortness of breath, fever and dysuria. TRAVEL OUTSIDE OF THE [place] IN LAST 30 DAYS: No - Related Data Allergies/Adverse Reactions: codeine [Codeine] Allergy (Intermediate, Verified 09/26/19 16:50) HIVES AND BAD MUSCLE SPASMS Penicillins Allergy (Intermediate, Verified 09/26/19 16:50) HIVES AND BAD MUSCLE SPASMS Past Medical History - General Information source: Patient - Social History Smoking Status: Never Smoker Cigarette use (# per day): No Chew tobacco use (# tins/day): No Frequency of alcohol use: None Drug Abuse: None Family History: None, CAD, CVA, DM, Hyperlipidemia, Hypertension, Malignancy Patient has suicidal ideation: No Patient has homicidal ideation: No - Past Medical History Cardiac Medical History: Reports: Hx Hypertension Renal/ Medical History: Reports: Hx Renal Insufficiency GI Medical History: Reports: Hx Diverticulitis - Treated at a hospital in [place], [place] last year Musculoskeletal Medical History: Reports Hx Musculoskeletal Trauma Psychiatric Medical History: Reports: Hx Anxiety, Hx Attention Deficit Hyperactivity Disorder, Hx Depression Past Surgical History: Reports: Hx Abdominal Surgery - gastric bypass, Hx Breast Surgery - reduction, Hx Cholecystectomy, Hx Gastric Bypass Surgery - Immunizations Immunizations up to date: No Hx Diphtheria, Pertussis, Tetanus Vaccination: No Review of Systems - Review of Systems Constitutional: See HPI. denies: Fever EENT: No symptoms reported Cardiovascular: See HPI. denies: Chest pain Respiratory: See HPI. denies: Short of breath Gastrointestinal: No symptoms reported Genitourinary: See HPI. denies: Dysuria Female Genitourinary: See HPI, Vaginal bleeding Musculoskeletal: No symptoms reported Skin: No symptoms reported Hematologic/Lymphatic: No symptoms reported Neurological/Psychological: No symptoms reported -: Yes All other systems reviewed and negative Physical Exam - Vital signs Vitals: Temp Pulse Resp BP Pulse Ox 97.7 F 105 H 18 184/92 H 95 09/26/19 16:24 09/26/19 16:24 09/26/19 16:24 09/26/19 16:24 09/26/19 16:24 - Notes Notes: Physical Exam: General: Alert, appears well. HEENT: Normocephalic. Atraumatic. PERRL. Extraocular movements intact. Oropharynx clear. Neck: Supple. Non-tender. Respiratory: No respiratory distress. Clear and equal breath sounds bilaterally. Cardiovascular: Regular rate and rhythm. Abdominal: Mild suprapubic tenderness to palpation. No distension. Normal Bowel Sounds. Back: No gross abnormalities. Extremities: Moves all four extremities. Upper extremities: Normal inspection. Normal ROM. Lower extremities: Normal inspection. No edema. Normal ROM. Neurological: Normal cognition. AAOx4. Normal speech. Psychological: Normal affect. Normal Mood. Skin: Warm. Dry. Normal color. Course - Vital Signs Vital signs: Temp Pulse Resp BP Pulse Ox 97.7 F 105 H 18 184/92 H 95 09/26/19 16:24 09/26/19 16:24 09/26/19 16:24 09/26/19 16:24 09/26/19 16:24 - Laboratory Result Diagrams: 09/26/19 16:58 09/26/19 16:58 Laboratory results interpreted by me: 09/26/19 09/26/19 09/26/19 16:58 16:58 16:58 Hgb 11.8 L Hct 33.6 L Sodium 135.4 L Est GFR ( Amer) 56 L Est GFR (MDRD) Non-Af 46 L Glucose 166 H Lipase 22.9 L Urine Protein 100 H Urine Blood MODERATE H - Diagnostic Test Radiology reviewed: Reports reviewed Discharge - Discharge Clinical Impression: Vaginal bleeding Anemia Qualifiers: Anemia type: unspecified type Qualified Code(s): D64.9 - Anemia, unspecified Condition: Good Disposition: HOME, SELF-CARE Instructions: Vaginal Bleeding ([facility]), Menopausal Symptoms ([facility]) Additional Instructions: Keep the follow up with the [employer] Machine Tender doctor next week. Rest. Take your medicine as needed for pain. Return here for bleeding, dizziness chest pain or other problems or concerns. Forms: Elevated Blood Pressure Referrals: MARY BERMUDEZ FNP-C [Primary Care Provider] - Follow up as needed I personally performed the services described in the documentation, reviewed and edited the documentation which was dictated to the scribe in my presence, and it accurately records my words and actions.
[2019-09-26] MEDS ORDERED: HYDROCODONE/ACETAMINOPHEN 5-325 MG TABLET PO ONE (18:02)
[2019-09-26] MEDS ORDERED: HYDROCODONE/ACETAMINOPHEN 5-325 MG (6 TAB/ER DISP) PO PRN (19:13)
[2019-09-26 19:34] VITALS: BP 163/72
== END 2019-09-26 19:35 | disposition home or self-care (01) ==
LOC: ER 16:21
DX: N93.9 Abnormal uterine and vaginal bleeding, unspecified (principal); D64.9 Anemia, unspecified; R10.819 Abdominal tenderness, unspecified site; I10 Essential (primary) hypertension; Z98.84 Bariatric surgery status; Z87.19 Personal history of other diseases of the digestive system; Z88.6 Allergy status to analgesic agent; Z88.5 Allergy status to narcotic agent; Z88.0 Allergy status to penicillin
CPT/HCPCS: 36415; 76830; 80053; 81001; 83690; 85025; 93976; 99284

== ENCOUNTER 2019-11-22 05:40 | Day surgery (SDC) | payer MEDICAID ==
[2019-11-15 08:43] LABS: APPEARANCE,URINE SLIGHTLY-CLOUDY; BILIRUBIN,URINE NEGATIVE (NEGATIVE); COLOR,URINE YELLOW; GLUCOSE, URINE NEGATIVE (NEGATIVE); KETONES,URINE NEGATIVE (NEGATIVE); LEUKOCYTE ESTERASE,URINE NEGATIVE (NEGATIVE); NITRITE,URINE NEGATIVE (NEGATIVE); PROTEIN,URINE NEGATIVE (NEGATIVE); URINE SPECIFIC GRAVITY 1.016; UROBILINOGEN,URINE NEGATIVE mg/dL (<2.0)
[2019-11-15 10:21] LABS: HEMATOCRIT 32.7 % (36.0-47.0); HEMOGLOBIN 11.2 g/dL (12.0-15.5); MEAN CORPUSCULAR HEMOGLOBIN 29.6 pg (27.0-33.4); MEAN CORPUSCULAR HGB CONC 34.4 g/dL (32.0-36.0); MEAN CORPUSCULAR VOLUME 86 fl (80-97); PLATELET COUNT 228 10^3/uL (150-450); RED CELL DISTRIBUTION WIDTH 13.1 % (11.5-14.0); WHITE BLOOD COUNT 6.8 10^3/uL (4.0-10.5)
[2019-11-15 10:27] LABS: ANION GAP 8 (5-19); BLOOD UREA NITROGEN 18 mg/dL (7-20); CARBON DIOXIDE 25 mmol/L (22-30); CHLORIDE 105 mmol/L (98-107); GLUCOSE 153 mg/dL (75-110)
--- NOTE | 2019-11-15 12:39 | EKG REPORT ---
SEVERITY:- BORDERLINE ECG - SINUS RHYTHM BORDERLINE T ABNORMALITIES, INFERIOR LEADS : Confirmed by: Adriana Lane 15-Nov-2019 12:38:39
[~2019-11-22 05:40] MED LIST changes: +CEFAZOLIN 1 GM/D5W RTU 1 GM/50 ML RTUPB IV ONE; +CEFAZOLIN 1 GM/D5W RTU 1 GM/50 ML RTUPB IV PRN; +LACTATED RINGERS 1000 ML IV PRN; +LIDOCAINE 0.5% INJ-PF (5 MG/ML) 50 ML SDV SUBCUT PRN; -PROPOFOL INJ 200 MG/20 ML VIAL IV ONE
[2019-11-22] MEDS ORDERED: FENTANYL CITRATE INJ/PF 100 MCG/2 ML AMPUL ONE (07:04)
[2019-11-22] MEDS ORDERED: MIDAZOLAM 2 MG/2 ML INJ ONE (07:05)
[2019-11-22] MEDS ORDERED: PROPOFOL INJ 200 MG/20 ML VIAL IV ONE (07:05)
[2019-11-22] MEDS ORDERED: LIDOCAINE 1% INJ-PF (10 MG/ML) 30 ML SDV ONE (07:20)
[2019-11-22] MEDS ORDERED: MEPERIDINE HCL/PF INJ 25 MG/1 ML DISP.SYRIN IV PRN (07:32)
[2019-11-22] MEDS ORDERED: PROMETHAZINE HCL INJ 25 MG/1 ML VIAL IV PRN ×2 (07:32)
[2019-11-22] MEDS ORDERED: FENTANYL CITRATE INJ/PF 100 MCG/2 ML AMPUL IV PRN ×3 (07:32)
[2019-11-22] MEDS ORDERED: DIPHENHYDRAMINE HCL 50 MG/ML VIAL IV PRN (07:32)
[2019-11-22] MEDS ORDERED: ONDANSETRON HCL INJ/PF 4 MG/2 ML SDV IV PRN (07:32)
--- NOTE | 2019-11-22 07:40 | Operative Report ---
Operative Report DATE OF SURGERY: 11/22/19 PREOPERATIVE DIAGNOSIS: Postmenopausal bleeding endometrial hyperplasia POSTOPERATIVE DIAGNOSIS: Same OPERATION: Hysteroscopy D&C SURGEON: MAKEDA METZ ANESTHESIA: LMAC TISSUE REMOVED OR ALTERED: Endometrial sampling COMPLICATIONS: None ESTIMATED BLOOD LOSS: 5 mL's INTRAOPERATIVE FINDINGS: Normal-appearing endometrial cavity no endometrial polyps or fibroids were encountered. The endometrium itself appeared to be somewhat atrophic due to long-term Provera usage in light of the coronavirus prevention of surgery earlier PROCEDURE: Patient was prescribed preoperatively as a possible risk of bleeding infection anesthesia and damaged or the other organs and tissues. After surgical timeout performed EUA was performed bladder was left and drained and a paracervical block of 1% lidocaine without epinephrine was instilled. The single-tooth tenaculum was placed on anterior lip of the cervix and the cervix readily admitted progression of dilators. Hysteroscopy ensued and after delineation of the endometrial cavity endometrial sampling is performed. This was productive of small amount of tissue. Completion procedure all sponge needle and instrument counts are correct.
[2019-11-22] MEDS ORDERED: EPHEDRINE SULFATE INJ 50 MG/1 ML AMPULE ONE (07:51)
[2019-11-22] MEDS ORDERED: OXYCODONE-ACETAMINOPHEN 5-325 MG TABLET ONE (08:17)
[2019-11-22] MEDS ORDERED: PROMETHAZINE HCL INJ 25 MG/1 ML VIAL IM PRN (08:19)
[2019-11-22] MEDS ORDERED: OXYCODONE-ACETAMINOPHEN 5-325 MG TABLET PO PRN (08:20)
[2019-11-22] MEDS ORDERED: MORPHINE SULFATE 10 MG/ML INJ INJ PRN (08:21)
[2019-11-22 10:38] VITALS: BP 111/50
[2019-11-22] MEDS ORDERED: IBUPROFEN 800 MG TABLET PO SCH (14:00)
== END 2019-11-22 09:45 | disposition home or self-care (01) ==
LOC: OROUT 05:40
PROVIDERS: ATTEND Specialist
DX: N85.00 Endometrial hyperplasia, unspecified (principal); N95.0 Postmenopausal bleeding; I10 Essential (primary) hypertension; N19 Unspecified kidney failure; Z88.0 Allergy status to penicillin; Z88.5 Allergy status to narcotic agent; Z79.899 Other long term (current) drug therapy; Z03.818 Encounter for observation for suspected exposure to other biological agents ruled out
CPT/HCPCS: 93005; 86900; 86901; 36415; 86850; 85027; 87635; 80048; 81001; 88305 ×2; 93010; 58558; J2250; J0690; J3490 ×2; J3010; J2704; C9803

== ENCOUNTER 2020-02-22 22:27 | Inpatient (IN) | payer MEDICARE, MEDICAID ==
[2020-02-22] MEDS ORDERED: NORMAL SALINE 1000 ML 1,000 ML IV ONE (23:29)
[2020-02-22] MEDS ORDERED: ONDANSETRON HCL INJ/PF 4 MG/2 ML SDV IV ONE (23:29)
[2020-02-22 23:39] LABS: ABSOLUTE LYMPHOCYTES (AUTO) 0.8 10^3/uL (0.5-4.7); ABSOLUTE MONOCYTES (AUTO) 0.5 10^3/uL (0.1-1.4); BASOPHILS % (AUTO) 0.5 % (0-2); EOSINOPHILS % (AUTO) 0.2 % (0-6); HEMATOCRIT 33.4 % (36.0-47.0); HEMOGLOBIN 11.4 g/dL (12.0-15.5); LYMPHOCYTES % (AUTO) 10.6 % (13-45); MEAN CORPUSCULAR HEMOGLOBIN 28.6 pg (27.0-33.4); MEAN CORPUSCULAR VOLUME 84 fl (80-97); MONOCYTES % (AUTO) 6.3 % (3-13); PLATELET COUNT 238 10^3/uL (150-450); RED BLOOD COUNT 3.97 10^6/uL (3.72-5.28); RED CELL DISTRIBUTION WIDTH 15.7 % (11.5-14.0); SEGMENTED NEUTROPHILS % (AUTO) 82.4 % (42-78); TOTAL CELLS COUNTED % (AUTO) 100 %; WHITE BLOOD COUNT 7.3 10^3/uL (4.0-10.5)
[2020-02-22 23:44] LABS: ALBUMIN 4.1 g/dL (3.5-5.0); ALKALINE PHOSPHATASE 272 U/L (38-126); ANION GAP 9 (5-19); ASPARTATE AMINO TRANSFERASE 60 U/L (14-36); BILIRUBIN,DIRECT 0.6 mg/dL (0.0-0.4); BILIRUBIN,TOTAL 0.7 mg/dL (0.2-1.3); BLOOD UREA NITROGEN 50 mg/dL (7-20); CALCIUM 10.3 mg/dL (8.4-10.2); CARBON DIOXIDE 21 mmol/L (22-30); CHLORIDE 105 mmol/L (98-107); GLUCOSE 131 mg/dL (75-110); POTASSIUM 4.4 mmol/L (3.6-5.0); TOTAL PROTEIN 6.9 g/dL (6.3-8.2)
--- NOTE | 2020-02-23 01:20 | RADIOLOGY REPORT (SQ) ---
EXAM DESCRIPTION: XR CHEST 1 VIEW COMPLETED DATE/TME: 02/22/2020 23:28 CLINICAL HISTORY: 65 years, Female, htn COMPARISON: 06/12/2016 NUMBER OF VIEWS: One TECHNIQUE: Upright AP view of the chest LIMITATIONS: None. FINDINGS: The lungs are clear except for a calcified granuloma in the right upper lobe. The heart is normal in size. No pneumothorax or pleural effusion. No intraperitoneal free air. No acute fracture. IMPRESSION: No acute cardiopulmonary abnormality. copyright 2010 [employer]- All Rights Reserved
--- NOTE | 2020-02-23 01:25 | RADIOLOGY REPORT (SQ) ---
EXAM DESCRIPTION: CT HEAD WITHOUT IV CONTRAST COMPLETED DATE/TME: 02/23/2020 00:10 CLINICAL HISTORY: 65 years, Female, aloc COMPARISON: 08/20/2012 TECHNIQUE: Axial CT images of the brain were obtained without contrast. Sagittal and coronal reformats were performed. DL 1096 Images stored on PACS. All CT scanners at this facility use dose modulation, iterative reconstruction, and/or weight based dosing when appropriate to reduce radiation dose to as low as reasonably achievable (ALARA). [facility]: Dose Right [facility]: CareDose [facility]: Dose Right [facility]: Teradose 4D [facility]: Smart All Web Leads LIMITATIONS: None. FINDINGS: There is an acute infarct involving the superior aspect of the left occipital lobe. There is no hemorrhage, midline shift, herniation, or hydrocephalus. A chronic appearing infarct involving the inferior aspect of the left occipital lobe is noted which was not present on the prior. Calcifications of the bilateral basal ganglia are noted. The paranasal sinuses and mastoid air cells are clear. There is no acute fracture. IMPRESSION: Acute infarct involving the superior aspect of the left occipital lobe. No hemorrhage, midline shift or herniation. TECHNICAL DOCUMENTATION: Quality ID # [id number]: Final reports with documentation of one or more dose reduction techniques (e.g., Automated exposure control, adjustment of the mA and/or kV according to patient size, use of iterative reconstruction technique) copyright 2011 [employer]- All Rights Reserved
[2020-02-23 01:45] LABS: APPEARANCE,URINE CLEAR; BILIRUBIN,URINE NEGATIVE (NEGATIVE); COLOR,URINE YELLOW; GLUCOSE, URINE NEGATIVE (NEGATIVE); KETONES,URINE NEGATIVE (NEGATIVE); LEUKOCYTE ESTERASE,URINE NEGATIVE (NEGATIVE); NITRITE,URINE NEGATIVE (NEGATIVE); PROTEIN,URINE NEGATIVE (NEGATIVE); URINE SPECIFIC GRAVITY 1.014
[2020-02-23] MEDS ORDERED: MAG HYDROX/AL HYDROX/SIMETH SUSP 30 ML UDCUP PO PRN (01:53)
[2020-02-23] MEDS ORDERED: MAGNESIUM HYDROXIDE SUSP 30 ML UDCUP PO PRN (01:53)
[2020-02-23 02:03] LABS: URINE BARBITURATES SCREEN NEGATIVE; URINE COCAINE SCREEN NEGATIVE; URINE MARIJUANA (THC) SCREEN NEGATIVE; URINE METHADONE SCREEN NEGATIVE; URINE PHENCYCLIDINE SCREEN NEGATIVE
[2020-02-23 02:04] LABS: URINE AMPHETAMINES SCREEN UNCONFIRMED POSITIVE; URINE BENZODIAZEPINES SCREEN UNCONFIRMED POSITIVE
[2020-02-23] MEDS ORDERED: ASPIRIN 81 MG TABLET, ENT COATED PO ONE (02:12)
[2020-02-23] MEDS ORDERED: ATORVASTATIN CALCIUM 40 MG TABLET PO ONE (02:12)
[2020-02-23] MEDS ORDERED: ONDANSETRON HCL INJ/PF 4 MG/2 ML SDV IV PRN (02:14)
--- NOTE | 2020-02-23 02:21 | ER Document Report ---
Entered by EDUARDO MOISE SCRIBE 02/23/20 0023 Acting as scribe for:MICHAEL DOTY DO ED General - General Chief Complaint: Altered Mental Status Stated Complaint: AMS Time Seen by Provider: 02/22/20 22:45 Information source: Patient, Emergency Med Personnel, PENDING SALE TO [facility] Records Cannot obtain history due to: Altered mental status Notes: This 65 year old female patient presents to the emergency department today with an altered mental status. Per nurse, patient has not been able to be reached by her friend for x1 week, so she called EMS. 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 Patient has vomited several times while in the ED and has a unsteady gait. Patient denies burning when urinating. TRAVEL OUTSIDE OF THE [place] IN LAST 30 DAYS: No - Related Data Allergies/Adverse Reactions: codeine [Codeine] Allergy (Intermediate, Verified 11/22/19 06:01) HIVES AND BAD MUSCLE SPASMS Penicillins Allergy (Intermediate, Verified 11/22/19 06:01) HIVES AND BAD MUSCLE SPASMS Home Medications: sertraline. trazodone Past Medical History - General Information source: Patient, Emergency Med Personnel, PENDING SALE TO [facility] Records Cannot obtain history due to: Altered mental status - Social History Smoking Status: Never Smoker Cigarette use (# per day): No Chew tobacco use (# tins/day): No Frequency of alcohol use: None Drug Abuse: None Lives with: Alone Family History: None, CAD, CVA, DM, Hyperlipidemia, Hypertension, Malignancy - Past Medical History Cardiac Medical History: Reports: Hx Hypertension Renal/ Medical History: Reports: Hx Renal Insufficiency GI Medical History: Reports: Hx Diverticulitis - Treated at a hospital in [place], [place] last year Musculoskeletal Medical History: Reports Hx Musculoskeletal Trauma Psychiatric Medical History: Reports: Hx Anxiety, Hx Attention Deficit Hyperactivity Disorder, Hx Depression Past Surgical History: Reports: Hx Abdominal Surgery - gastric bypass, Hx Breast Surgery - reduction, Hx Cholecystectomy, Hx Gastric Bypass Surgery, Other - B reast reduction - Immunizations Immunizations up to date: No Hx Diphtheria, Pertussis, Tetanus Vaccination: No Review of Systems - Review of Systems -: Yes ROS unobtainable due to patient's medical condition Gastrointestinal: Vomiting Genitourinary: denies: Burning Neurological/Psychological: Confusion, Gait changes Physical Exam - Vital signs Vitals: Pulse Resp BP Pulse Ox 89 16 144/76 H 100 02/22/20 22:28 02/22/20 22:28 02/22/20 22:28 02/22/20 22:28 - General Notes: Alert. Appearance is disheveled and unkempt. - HEENT Head: Normocephalic, Atraumatic Eyes: Normal Pupils: PERRL Mucous membranes: Dry - Respiratory Respiratory status: No respiratory distress Chest status: Nontender Breath sounds: Normal Chest palpation: Normal - Cardiovascular Rhythm: Regular Heart sounds: Normal auscultation Murmur: No - Abdominal Inspection: Obese Distension: No distension Bowel sounds: Normal Tenderness: Nontender - Extremities General upper extremity: Normal inspection. No: Edema General lower extremity: Normal inspection. No: Edema - Neurological Neuro grossly intact: Yes Speech: Normal Notes: Confused. Oriented to self. No focal deficits. Equal human services supervisor. - Psychological Associated symptoms: Normal affect, Normal mood - Skin Skin Temperature: Warm Skin Moisture: Dry Skin Color: Normal Course - Re-evaluation Re-evalutation: 02/23/20 02:19 MDM 65 g[address] bustillos wiht MEG and CVA on CT. Right next to chronic occ infarct is new presumed infarct. It is acute to subacute wiht no sig edema noted. For this reason feel safe to stay here, be placed on statin and followed along as MEG improves. - Vital Signs Vital signs: Temp Pulse Resp BP Pulse Ox 98.5 F 89 16 144/76 H 100 02/22/20 22:49 02/22/20 22:28 02/22/20 22:28 02/22/20 22:28 02/22/20 22:28 - Laboratory Result Diagrams: 02/22/20 22:40 02/22/20 22:40 Laboratory results interpreted by me: 02/22/20 02/22/20 02/23/20 22:40 22:40 01:17 Hgb 11.4 L Hct 33.4 L RDW 15.7 H Lymph % (Auto) 10.6 L Seg Neutrophils % 82.4 H Sodium 135.3 L Carbon Dioxide 21 L BUN 50 H Creatinine 4.85 H Est GFR ( Amer) 11 L Est GFR (MDRD) Non-Af 9 L Glucose 131 H Calcium 10.3 H Direct Bilirubin 0.6 H AST 60 H ALT 67 H Alkaline Phosphatase 272 H Urine Urobilinogen 2.0 H - Diagnostic Test Radiology reviewed: Reports reviewed - EKG Interpretation by Me EKG shows normal: Sinus rhythm Rate: Normal Rhythm: NSR - NSR NL [place] 96 BPM Rep[address] Ab no st elevaiton or depression my interpretation. Critical Care Note - Critical Care Note Total time excluding time spent on procedures (mins): 30 Discharge - Discharge Clinical Impression: MEG (acute kidney injury), Dehydration Hypertension Qualifiers: Hypertension type: unspecified Qualified Code(s): I10 - Essential (primary) hypertension CVA (cerebral vascular accident) Qualifiers: CVA mechanism: unspecified Qualified Code(s): I63.9 - Cerebral infarction, unspecified Condition: Stable Disposition: ADMITTED INPATIENT Admitting Provider: Sil (Hospitalist) Unit Admitted: Medical Floor I personally performed the services described in the documentation, reviewed and edited the documentation which was dictated to the scribe in my presence, and it accurately records my words and actions.
--- NOTE | 2020-02-23 02:29 | PDOC H&P ---
History of Present Illness Admission Date/PCP: VANDANA RAMIREZ Patient complains of: Altered mental status History of Present Illness: PANFILO CALVIN is a 65 year old female with altered mental status likely due to the combination of her acute kidney injury and ischemic stroke noted on CT scan. She is an unreliable historian. Some information is obtained from a history and physical from September of this year. Past Medical History Cardiac Medical History: Reports: Hypertension Denies: Congestive Heart Failure, Coronary Artery Disease, Myocardial Infarction Pulmonary Medical History: Denies: Asthma, Bronchitis, Chronic Obstructive Pulmonary Disease (COPD), Pneumonia Neurological Medical History: Denies: Seizures GI Medical History: Reports: Diverticulitis - Treated at a hospital in [place], [place] last year Musculoskeltal Medical History: Denies: Arthritis Psychiatric Medical History: Reports: Attention Deficit Hyperactivity Disorder, Depression Hematology: Denies: Anemia Past Surgical History Past Surgical History: Reports: Cholecystectomy, Gastric Bypass Surgery, Other - Breast reduction Social History Information Source: [facility] Records Lives with: Alone Smoking Status: Never Smoker Electronic Cigarette use?: No Frequency of Alcohol Use: None Hx Recreational Drug Use: No Hx Prescription Drug Abuse: No - Advance Directive Resuscitation Status: Do Not Resuscitate Surrogate healthcare decision maker:: Unknown at this time Family History Family History: None, CAD, CVA, DM, Hyperlipidemia, Hypertension, Malignancy Parental Family History Reviewed: Yes Children Family History Reviewed: Yes Sibling(s) Family History Reviewed.: Yes Medication/Allergy Home Medications: Amlodipine Besylate [Norvasc 5 mg Tablet] 5 mg PO DAILY 09/12/19 Metoprolol Tartrate [Lopressor 50 mg Tablet] 50 mg PO Q12 09/12/19 Sertraline HCl [Zoloft 50 mg Tablet] 50 mg PO DAILY 09/12/19 Trazodone HCl 150 mg PO QHS 09/12/19 Lisinopril [Prinivil 10 mg Tablet] 10 mg PO DAILY #30 tablet 09/15/19 Medroxyprogesterone Acet [Provera 10 mg Tablet] 20 mg PO TID #180 tablet 09/15/19 Dextroamphetamine/Amphetamine [Adderall 10 mg Tablet] 10 mg PO 11/15/19 Allergies/Adverse Reactions: codeine [Codeine] Allergy (Intermediate, Verified 11/22/19 06:01) HIVES AND BAD MUSCLE SPASMS Penicillins Allergy (Intermediate, Verified 11/22/19 06:01) HIVES AND BAD MUSCLE SPASMS Review of Systems ROS unobtainable: Due to mental status - Patient had difficulty recalling multiple aspects. Answers to any questions were very abrupt yes or no. Physical Exam Vital Signs: Temp Pulse Resp BP Pulse Ox 98.5 F 89 16 144/76 H 100 02/22/20 22:49 02/22/20 22:28 02/22/20 22:28 02/22/20 22:28 02/22/20 22:28 Intake & Output 02/21/20 02/22/20 02/23/20 06:59 06:59 06:59 Weight 71.214 kg General appearance: PRESENT: well-developed, other - Moderate distress Head exam: PRESENT: atraumatic, normocephalic Eye exam: PRESENT: conjunctiva pink. ABSENT: scleral icterus Ear exam: PRESENT: normal external ear exam. ABSENT: bleeding, drainage Mouth exam: PRESENT: dry mucosa, tongue midline Neck exam: ABSENT: carotid bruit, JVD, lymphadenopathy Respiratory exam: PRESENT: clear to auscultation melissa, symmetrical, unlabored. ABSENT: prolonged expiratory phas, rales, rhonchi, tachypnea, wheezes Cardiovascular exam: PRESENT: RRR, +S1, +S2. ABSENT: bradycardia, diastolic murmur, irregular rhythm, systolic murmur, tachycardia GI/Abdominal exam: PRESENT: normal bowel sounds, soft. ABSENT: guarding, tenderness Rectal exam: PRESENT: deferred Gentrourinary exam: ABSENT: indwelling catheter Extremities exam: PRESENT: other - Unable to fully assess as patient not able to fully participate during the exam Musculoskeletal exam: PRESENT: normal inspection. ABSENT: deformity, dislocation Neurological exam: PRESENT: alert, awake, oriented to person, oriented to place, CN II-XII grossly intact. ABSENT: oriented to time, oriented to situation Psychiatric exam: PRESENT: anxious. ABSENT: agitated Focused psych exam: PRESENT: restlessness Skin exam: PRESENT: dry, normal color, warm. ABSENT: rash Results Laboratory Results: 02/22/20 22:40 02/22/20 22:40 02/22/20 02/22/20 02/22/20 22:40 22:40 22:40 WBC 7.3 RBC 3.97 Hgb 11.4 L Hct 33.4 L MCV 84 MCH 28.6 MCHC 34.0 RDW 15.7 H Plt Count 238 Seg Neutrophils % 82.4 H Sodium 135.3 L Potassium 4.4 Chloride 105 Carbon Dioxide 21 L Anion Gap 9 BUN 50 H Creatinine 4.85 H Est GFR ( Amer) 11 L Glucose 131 H Calcium 10.3 H Magnesium 2.1 Total Bilirubin 0.7 AST 60 H Alkaline Phosphatase 272 H Total Protein 6.9 Albumin 4.1 Lipase 24.8 TSH 0.52 Urine Color Urine Appearance Urine pH Ur Specific [place] Urine Protein Urine Glucose (UA) Urine Ketones Urine Blood Urine Nitrite Ur Leukocyte Esterase Urine WBC (Auto) Urine RBC (Auto) 02/23/20 01:17 WBC RBC Hgb Hct MCV MCH MCHC RDW Plt Count Seg Neutrophils % Sodium Potassium Chloride Carbon Dioxide Anion Gap BUN Creatinine Est GFR ( Amer) Glucose Calcium Magnesium Total Bilirubin AST Alkaline Phosphatase Total Protein Albumin Lipase TSH Urine Color YELLOW Urine Appearance CLEAR Urine pH 5.0 Ur Specific [place] 1.014 Urine Protein NEGATIVE Urine Glucose (UA) NEGATIVE Urine Ketones NEGATIVE Urine Blood NEGATIVE Urine Nitrite NEGATIVE Ur Leukocyte Esterase NEGATIVE Urine WBC (Auto) 2 Urine RBC (Auto) 10 02/22/20 02/22/20 22:40 22:40 Creatine Kinase 83 Troponin I 0.071 Impressions: Chest X-Ray 02/22/20 23:28 IMPRESSION: No acute cardiopulmonary abnormality. copyright 2010 [employer]- All Rights Reserved Head CT 02/23/20 00:10 IMPRESSION: Acute infarct involving the superior aspect of the left occipital lobe. No hemorrhage, midline shift or herniation. TECHNICAL DOCUMENTATION: Quality ID # 436: Final reports with documentation of one or more dose reduction techniques (e.g., Automated exposure control, adjustment of the mA and/or kV according to patient size, use of iterative reconstruction technique) copyright 2011 [employer]- All Rights Reserved Assessment and Plan - Diagnosis (1) Acute ischemic stroke Is this a current diagnosis for this admission?: Yes Plan: CT scan shows an acute ischemic stroke adjacent to an old stroke. The patient is unable to get any dye studies due to her current renal function. She is very restless and would not be able to sit still for a MRI study. I did order carotid ultrasound studies. I started her on aspirin and 40 mg of atorvastatin daily. In addition she is listed as having multiple antihypertensive medications. I have started her metoprolol back at a lower dose than is listed. I have started her amlodipine back at the 5 mg listed. I have held off on the ROSE inhibitor due to her acute kidney injury. Neurochecks and exams per the stroke protocol. She is having some expressive aphasia and so speech will see the patient in addition to PT and OT. (2) MEG (acute kidney injury) Is this a current diagnosis for this admission?: Yes Plan: The patient was admitted in September of this year by the hospitalist service. At that time she had an acute kidney injury with vaginal bleeding. Her BUN and creatinine (50/4.85) are much higher this time. Will administer IV fluids, monitor intake and output with daily serum chemistries. (3) Hypertension Qualifiers: Hypertension type: essential hypertension Is this a current diagnosis for this admission?: Yes Plan: Amlodipine and metoprolol as noted above. Holding lisinopril due to kidney injury. Vital signs every 4 hours. (4) Depression Qualifiers: Depression Type: major depressive disorder Major depression recurrence: recurrent Active/Remission status: currently active Major depression episode severity: moderate Qualified Code(s): F33.1 - Major depressive disorder, recurrent, moderate Is this a current diagnosis for this admission?: Yes Plan: We will continue Zoloft. Holding off on Adderall. Consider psychiatry evaluation in the morning. Somewhat difficult to fully assess due to the metabolic derangements. (5) ADHD Qualifiers: Attention deficit-hyperactivity disorder type: unspecified Qualified Code(s): F90.9 - Attention-deficit hyperactivity disorder, unspecified type Is this a current diagnosis for this admission?: Yes Plan: Medication list includes Adderall. Currently on hold while kidney failure and stroke are addressed. - Time Time Spent with patient: 35 or more minutes Medications reviewed and adjusted accordingly: Yes Anticipated Discharge Disposition: Or possibly senior care facility Anticipated Discharge Timeframe: Likely 4 to 5 days - Inpatient Certification Based on my medical assessment, after consideration of the patient's comorbidities, presenting symptoms, or acuity I expect that the services needed warrant INPATIENT care.: Yes I certify that my determination is in accordance with my understanding of Medicare's requirements for reasonable and necessary INPATIENT services [42 CFR 412.3e].: Yes Medical Necessity: Significant Comorbidiites Make Outpatient Treatment Too Risky, Need Close Monitoring Due to Risk of Patient Decompensation, Need For IV Fluids, Need For Continuous Telemetry Monitoring, Need for Neurological Checks Post Hospital Care: D/C or Transfer Summary
[2020-02-23] MEDS: HEPARIN SOD (PORCINE) 5,000 UNIT/ML 1 ML VIAL SUBCUT SCH ×3 (06:53→21:53)
[2020-02-23 07:43] LABS: ALBUMIN 3.9 g/dL (3.5-5.0); ANION GAP 10 (5-19); BLOOD UREA NITROGEN 46 mg/dL (7-20); CALCIUM 9.8 mg/dL (8.4-10.2); CARBON DIOXIDE 21 mmol/L (22-30); CHLORIDE 107 mmol/L (98-107); GLUCOSE 118 mg/dL (75-110); PHOSPHORUS 3.3 mg/dL (2.5-4.5); POTASSIUM 4.3 mmol/L (3.6-5.0)
[2020-02-23] MEDS: AMLODIPINE BESYLATE 5 MG TABLET PO SCH (12:10)
[2020-02-23] MEDS: FAMOTIDINE 20 MG TABLET PO SCH (12:11)
[2020-02-23] MEDS: SERTRALINE HCL 50 MG TABLET PO SCH (12:11)
[2020-02-23] MEDS: METOPROLOL SUCCINATE 25 MG TAB.SR.24H PO SCH (12:11)
[2020-02-23] MEDS: DOCUSATE SODIUM 100 MG CAPSULE PO SCH ×2 (12:11→18:35)
[2020-02-23] MEDS: NORMAL SALINE 1000 ML 1,000 ML IV PRN (12:57)
[2020-02-23] MEDS ORDERED: NORMAL SALINE 1000 ML 1,000 ML IV ONE (13:49)
--- NOTE | 2020-02-23 16:53 | PDOC CONSULTATION ---
Consultation-Blank Consultation: Behavioral Health Consult: Altered Mental Status, history of mental health ([facility] is outpatient provider). Chart review conducted at 1625. Included review of home medications, medications being administered in the hospital, labs, Head CT and other information. Low TSH (in a day went from 0.52 to 0.33), thyroid can affect mood. Acute Kidney Injury has concerns for metabolizing of medications (BUN 46). Head CT noted acute infarct left occipital lobe, old infarct, and calcification of bilateral basal ganglia (suggestive of neurodegenerative processes). Clinical Presentation: Altered Mental Status History of Mental Health (per medications being prescribed by [facility] seems to be related to focus/attention/memory, depression and sleep) Concerns for Serotonin Discontinuation Syndrome (based on home medications all affecting that neurotransmitter, not getting one medication while in hospital and reducing the others which is felt to be necessary due to kidney issues and how she metabolizes medications) Concerns for neurodegenerative processes Medication recommendations made by the psychiatric medication provider Dr. Anastacio ENG, includes: Decrease Trazodone to 50MG at night (to start 100MG tonight, was on 150MG at home) Continue Zoloft at 50MG daily (was on 200MG at home) Impression/Plan: Concerns for Serotonin Discontinuation Syndrome (home medications of Adderall, Trazodone, Zoloft all effect Serotonin). Please monitor symptoms such as becoming rigid and hallucinations (if these increase please re consult behavioral health). Consulted with Dr. Arora regarding the management and care of patient. Attending Hospitalist aware of recommendations.
[2020-02-23] MEDS: ASPIRIN 81 MG TABLET, ENT COATED PO SCH (21:53)
[2020-02-23] MEDS: ATORVASTATIN CALCIUM 40 MG TABLET PO SCH (21:53)
[2020-02-23] MEDS: TRAZODONE HCL 50 MG TABLET PO SCH (21:53)
[2020-02-23] MEDS ORDERED: TRAZODONE HCL 50 MG TABLET PO SCH (22:00)
[2020-02-24] MEDS: NORMAL SALINE 1000 ML 1,000 ML IV PRN ×3 (01:56→23:55)
--- NOTE | 2020-02-24 02:29 | EKG REPORT ---
SEVERITY:- BORDERLINE ECG - SINUS RHYTHM BORDERLINE T ABNORMALITIES, INFERIOR LEADS : Confirmed by: Jairo Suero MD 24-Feb-2020 02:28:37
[2020-02-24] MEDS: HEPARIN SOD (PORCINE) 5,000 UNIT/ML 1 ML VIAL SUBCUT SCH ×3 (05:59→21:26)
[2020-02-24 06:09] LABS: ANION GAP 9 (5-19); BLOOD UREA NITROGEN 35 mg/dL (7-20); CALCIUM 9.3 mg/dL (8.4-10.2); CARBON DIOXIDE 17 mmol/L (22-30); CHLORIDE 114 mmol/L (98-107); GLUCOSE 91 mg/dL (75-110); POTASSIUM 4.3 mmol/L (3.6-5.0)
[2020-02-24] MEDS ORDERED: DEXTROSE 5%-WATER 1000 ML 1,000 ML with SODIUM BICARBONATE 150 MEQ IV PRN ×2 (09:00)
[2020-02-24] MEDS: SERTRALINE HCL 50 MG TABLET PO SCH (09:29)
[2020-02-24] MEDS: FAMOTIDINE 20 MG TABLET PO SCH (09:29)
[2020-02-24] MEDS: AMLODIPINE BESYLATE 5 MG TABLET PO SCH (09:29)
[2020-02-24] MEDS: DOCUSATE SODIUM 100 MG CAPSULE PO SCH ×2 (09:29→17:57)
[2020-02-24] MEDS: METOPROLOL SUCCINATE 25 MG TAB.SR.24H PO SCH (09:29)
--- NOTE | 2020-02-24 15:32 | PDOC PROGRESS REPORT ---
Subjective Progress Note for:: 02/24/20 Subjective:: Mental status has dramatically improved since yesterday. She is alert, awake, conversive, with an appropriate affect. She is able to tell me where she lives, what she does for a living, etc. She tells me that she feels "fine" and has no concerns. Reason For Visit: STROKE BY CT Physical Exam Vital Signs: Temp Pulse Resp BP Pulse Ox 97.6 F 73 21 H 142/68 H 98 02/24/20 11:05 02/24/20 11:05 02/24/20 11:05 02/24/20 11:05 02/24/20 11:05 Intake & Output 02/23/20 02/24/20 02/25/20 06:59 06:59 06:59 Intake Total 2300 240 Output Total 750 Balance 1550 240 Weight 85.7 kg 87.9 kg General appearance: PRESENT: no acute distress Eye exam: PRESENT: EOMI Mouth exam: PRESENT: moist Throat exam: ABSENT: post pharyngeal erythema Neck exam: ABSENT: JVD, thyromegaly Respiratory exam: PRESENT: clear to auscultation melissa, unlabored. ABSENT: crackles Cardiovascular exam: PRESENT: RRR GI/Abdominal exam: PRESENT: normal bowel sounds, soft. ABSENT: tenderness Extremities exam: ABSENT: pedal edema Neurological exam: PRESENT: alert, awake, oriented to person, oriented to place, oriented to time, oriented to situation, ataxia, CN II-XII grossly intact, other - R hemianopia, disequilibrium upon standing with eyes closed. ABSENT: aphasic Psychiatric exam: PRESENT: flat affect Results Laboratory Results: 02/22/20 22:40 02/24/20 05:13 02/24/20 05:13 Sodium 139.5 Potassium 4.3 Chloride 114 H Carbon Dioxide 17 L Anion Gap 9 BUN 35 H Creatinine 1.93 H Est GFR ( Amer) 32 L Glucose 91 Calcium 9.3 Magnesium 2.0 02/22/20 02/22/20 02/23/20 22:40 22:40 06:48 Creatine Kinase 83 Troponin I 0.071 0.061 Impressions: Chest X-Ray 02/22/20 23:28 IMPRESSION: No acute cardiopulmonary abnormality. copyright 2011 [employer]- All Rights Reserved Head CT 02/23/20 00:10 IMPRESSION: Acute infarct involving the superior aspect of the left occipital lobe. No hemorrhage, midline shift or herniation. TECHNICAL DOCUMENTATION: Quality ID # 436: Final reports with documentation of one or more dose reduction techniques (e.g., Automated exposure control, adjustment of the mA and/or kV according to patient size, use of iterative reconstruction technique) copyright 2011 [employer]- All Rights Reserved Assessment and Plan - Plan Summary Summary: Acute CVA of the superior aspect of the left occipital lobe: complicated by R hemianopia - no hemorrhage, midline shift or herniation - she was not able to get CT or MRI with contrast on admission due to renal failure, but should have MRI head and MRA neck when renal function has normalized - continue ASA/statin - carotid doppler: - continuous telemetry w/o evidence of arrhythmia thus far - PT/OT/ASSOCIATE ACCOUNT EXECUTIVE evaluations pending Pre-Renal MEG due to dehydration c/b metabolic acidosis: renal function is improving, although she has developed acidosis - exchange fluids to include bicarb - repeat BMP in afternoon - encourage oral intake - hold ACEI - avoid nephrotoxins - renally dose medications Delirium due to Acute CVA and Metabolic Derangements: improving - psychiatry consulted initially, although her mental status is now greatly improved today - continue home sertraline, trazodone - fall precautions DVT ppx: heparin Dispo: 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 New visual deficit will impair her ability to continue driving. SW consulted to assess needs, help with discharge planning. - Time Time Spent with patient: 35 or more minutes Anticipated Discharge Disposition: Home, Self Care Anticipated Discharge Timeframe: within 48 hours
--- NOTE | 2020-02-24 15:34 | RADIOLOGY REPORT (SQ) ---
EXAM DESCRIPTION: CAROTID DOPPLER IMAGES COMPLETED DATE/TIME: 02/24/2020 1:41 pm REASON FOR STUDY: stroke by CT COMPARISON: None. TECHNIQUE: Grayscale ultrasound, Doppler velocity and spectra, and color Doppler images acquired of the extra-cranial carotid and vertebral arteries. Images stored on PACS. LIMITATIONS: None. FINDINGS: RIGHT CAROTID CCA Velocities: Within normal limits. ICA Velocities Peak systolic 104 cm/s. End diastolic 38 cm/s. Proximal ICA/CCA peak systolic ratio 1.2. Grayscale demonstrates scattered eccentric irregular plaque without high-grade stenosis. LEFT CAROTID CCA Velocities: Within normal limits. ICA Velocities Peak systolic 102 cm/s. End diastolic 40 cm/s. Proximal ICA/CCA peak systolic ratio 1.1. Grayscale demonstrates scattered heterogeneous plaque without high-grade stenosis. VERTEBRAL ARTERIES: Antegrade flow. Normal waveforms. SUBCLAVIAN ARTERIES: Not imaged. OTHER: No other significant finding. IMPRESSION: 1. Scattered bilateral ICA plaque with less than 50% stenosis. 2. Antegrade vertebral arteries. COMMENT: Quality ID #195: Velocity criteria are extrapolated from the diameter data as defined by t he Society of Radiologists in Ultrasound Consensus Conference. Radiology 2003: 229; 340-346. TECHNICAL DOCUMENTATION: JOB ID: [id number] 2010 [employer]- All Rights Reserved Reading location - IP/workstation name: [email or web address]
[2020-02-24] MEDS: ASPIRIN 81 MG TABLET, ENT COATED PO SCH (21:26)
[2020-02-24] MEDS: TRAZODONE HCL 50 MG TABLET PO SCH (21:26)
[2020-02-24] MEDS: ATORVASTATIN CALCIUM 40 MG TABLET PO SCH (21:26)
[2020-02-24] MEDS: ACETAMINOPHEN 325 MG TABLET PO PRN (21:26)
[2020-02-25] MEDS: HEPARIN SOD (PORCINE) 5,000 UNIT/ML 1 ML VIAL SUBCUT SCH ×3 (05:34→21:40)
[2020-02-25] MEDS: NORMAL SALINE 1000 ML 1,000 ML IV PRN (05:36)
[2020-02-25 07:12] LABS: BLOOD UREA NITROGEN 20 mg/dL (7-20); CALCIUM 9.3 mg/dL (8.4-10.2); GLUCOSE 101 mg/dL (75-110)
[2020-02-25 07:13] LABS: ANION GAP 5 (5-19); CARBON DIOXIDE 23 mmol/L (22-30); CHLORIDE 110 mmol/L (98-107); POTASSIUM 4.1 mmol/L (3.6-5.0)
[2020-02-25] MEDS: AMLODIPINE BESYLATE 5 MG TABLET PO SCH (09:23)
[2020-02-25] MEDS: SERTRALINE HCL 50 MG TABLET PO SCH (09:23)
[2020-02-25] MEDS: FAMOTIDINE 20 MG TABLET PO SCH (09:23)
[2020-02-25] MEDS: METOPROLOL SUCCINATE 25 MG TAB.SR.24H PO SCH (09:24)
--- NOTE | 2020-02-25 14:51 | PDOC CONSULTATION ---
Consultation-Blank Consultation: Physical Medicine & Rehabilitation Progress Note Consultation request received and appreciated. Chart reviewed. 65-year-old right-handed female admitted to [facility] on 02/23/2020 with acute infarct involving the superior aspect of the left occipital lobe on CT head and acute kidney injury after presenting with altered mental status. Stroke related deficits include right visual field cut and coordination deficits; she has no strength deficits. The patient is undergoing complete stroke workup per internal medicine, and she has been started on aspirin 81 mg daily at bedtime and atorvastatin 40 mg daily at bedtime for secondary stroke prophylaxis. Additionally, the patient is noted to have a history of attention deficit hyperactivity disorder and depression, and she was evaluated by behavioral health with concerns for serotonin discontinuation syndrome. Adjustments to her Zoloft and trazodone were recommended. She was evaluated by acute care physical therapy and occupational therapy, and she currently requires standby to contact- guard assistance for ambulation of 170 feet without an assistive device, supervision for bed mobility, standby assistance for transfers, contact guard assistance for toilet transfers, supervision for upper and lower body dressing, supervision for feeding, independence for grooming, and supervision for toileting. She is noted to have poor safety awareness, problem solving, and memory. 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 Based on the patient's diagnosis, medical co-morbidities, and current functional status, she is not a candidate for Acute Inpatient Rehabilitation as she does not meet criteria for 3 hours per day of intensive therapies in at least 2 disciplines. Given her deficits and limited support upon hospital discharge, the patient would benefit from a prolonged, less intensive rehabilitation course that can be provided at the subacute level when she is medically ready for discharge.
[2020-02-25] MEDS: ACETAMINOPHEN 325 MG TABLET PO PRN ×2 (15:06→21:39)
--- NOTE | 2020-02-25 17:56 | PDOC PROGRESS REPORT ---
Subjective Progress Note for:: 02/25/20 Subjective:: she is feeling better and better daily Reason For Visit: STOKE BY CT Physical Exam Vital Signs: Temp Pulse Resp BP Pulse Ox 97.8 F 104 H 15 168/79 H 100 02/25/20 11:52 02/25/20 14:00 02/25/20 12:00 02/25/20 12:00 02/25/20 12:00 Intake & Output 02/24/20 02/25/20 02/26/20 06:59 06:59 06:59 Intake Total 2300 3095 260 Output Total 750 2350 Balance 1550 745 260 Weight 87.9 kg 87.2 kg General appearance: PRESENT: no acute distress, cooperative Eye exam: ABSENT: scleral icterus Mouth exam: PRESENT: moist Neck exam: ABSENT: JVD Respiratory exam: PRESENT: clear to auscultation melissa Cardiovascular exam: PRESENT: tachycardia GI/Abdominal exam: PRESENT: normal bowel sounds, soft Extremities exam: PRESENT: pedal edema Neurological exam: PRESENT: alert, awake, oriented to person, oriented to place, oriented to time, oriented to situation Psychiatric exam: PRESENT: appropriate affect Results Laboratory Results: 02/22/20 22:40 02/25/20 05:53 02/25/20 05:53 Sodium 137.5 Potassium 4.1 Chloride 110 H Carbon Dioxide 23 Anion Gap 5 BUN 20 Creatinine 1.34 H Est GFR ( Amer) 48 L Glucose 101 Calcium 9.3 02/22/20 02/22/20 02/23/20 22:40 22:40 06:48 Creatine Kinase 83 Troponin I 0.071 0.061 Impressions: Chest X-Ray 02/22/20 23:28 IMPRESSION: No acute cardiopulmonary abnormality. copyright 2010 [employer]- All Rights Reserved Head CT 02/23/20 00:10 IMPRESSION: Acute infarct involving the superior aspect of the left occipital lobe. No hemorrhage, midline shift or herniation. TECHNICAL DOCUMENTATION: Quality ID # 436: Final reports with documentation of one or more dose reduction techniques (e.g., Automated exposure control, adjustment of the mA and/or kV according to patient size, use of iterative reconstruction technique) copyright 2011 [employer]- All Rights Reserved Carotid Doppler Study 02/24/20 00:00 IMPRESSION: 1. Scattered bilateral ICA plaque with less than 50% stenosis. 2. Antegrade vertebral arteries. Assessment and Plan - Plan Summary Summary: Acute CVA of the superior aspect of the left occipital lobe: complicated by ri ght visual field cut and coordination deficits - no hemorrhage, midline shift or herniation - she was not able to get CT or MRI with contrast on admission due to renal failure - continue ASA/statin - carotid doppler: no significant stenosis - continuous telemetry w/o evidence of arrhythmia thus far - PT/OT/LOCK TENDER evaluations - PM&R consulted, felt that she was not appropriate for acute rehab, and she has declined subacute rehab Pre-Renal MEG due to dehydration c/b metabolic acidosis: renal function is improving, acidosis resolved - encourage oral intake - hold ACEI - avoid nephrotoxins - renally dose medications Delirium due to Acute CVA and Metabolic Derangements: improving - psychiatry consulted initially, although her mental status is now greatly improved today - continue home sertraline, trazodone at lower doses - fall precautions Essential HTN: uncontrolled - start hydralazine - continue amlodipine - increase metoprolol DVT ppx: heparin Dispo: 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 New visual deficit will impair her ability to continue driving. SW consulted to assess needs, help with discharge planning. She asked me to speak with her boss today at the [employer]. With patient's permission, I relayed to her boss that she would not be able to drive with a visual field cut. We are working on finding a safe discharge plan given that she lives alone and has no other source of income, and limited family support. - Time Time Spent with patient: 35 or more minutes Anticipated Discharge Disposition: Home, Self Care Anticipated Discharge Timeframe: within 24 hours
[2020-02-25] MEDS ORDERED: METOPROLOL SUCCINATE 50 MG TAB.SR.24H PO SCH (18:00)
[2020-02-25] MEDS: HYDRALAZINE HCL 10 MG TABLET PO SCH (18:34)
[2020-02-25] MEDS: TRAZODONE HCL 50 MG TABLET PO SCH (21:40)
[2020-02-25] MEDS: ASPIRIN 81 MG TABLET, ENT COATED PO SCH (21:40)
[2020-02-25] MEDS: ATORVASTATIN CALCIUM 40 MG TABLET PO SCH (21:40)
[2020-02-26 04:59] LABS: ANION GAP 8 (5-19); BLOOD UREA NITROGEN 12 mg/dL (7-20); CALCIUM 9.7 mg/dL (8.4-10.2); CARBON DIOXIDE 25 mmol/L (22-30); CHLORIDE 106 mmol/L (98-107); GLUCOSE 115 mg/dL (75-110); POTASSIUM 3.6 mmol/L (3.6-5.0)
[2020-02-26] MEDS: HEPARIN SOD (PORCINE) 5,000 UNIT/ML 1 ML VIAL SUBCUT SCH ×2 (05:08→14:18)
[2020-02-26] MEDS: HYDRALAZINE HCL 10 MG TABLET PO SCH ×2 (05:08→14:17)
[2020-02-26] MEDS: ACETAMINOPHEN 325 MG TABLET PO PRN ×2 (05:09→09:58)
[2020-02-26] MEDS: FAMOTIDINE 20 MG TABLET PO SCH (09:57)
[2020-02-26] MEDS: SERTRALINE HCL 50 MG TABLET PO SCH (09:57)
[2020-02-26] MEDS: AMLODIPINE BESYLATE 5 MG TABLET PO SCH (09:57)
--- NOTE | 2020-02-26 13:46 | PDOC DISCHARGE SUMMARY ---
Impression - Admit/DC Date/PCP Admission Date/Primary Care Provider: 02/23/20 02:13 VANDANA RAMIREZ Discharge Date: 02/26/20 - Discharge Diagnosis (1) Acute ischemic stroke Is this a current diagnosis for this admission?: Yes (2) Acute metabolic encephalopathy Is this a current diagnosis for this admission?: Yes (3) MEG (acute kidney injury) Is this a current diagnosis for this admission?: Yes (4) Hypertension Is this a current diagnosis for this admission?: Yes (5) Hyponatremia Is this a current diagnosis for this admission?: Yes - Assessment Summary: Acute CVA of the superior aspect of the left occipital lobe: complicated by right visual field cut and coordination deficits. CT head showed no hemorrhage, midline shift or herniation. She was not able to get contrasted CT or MRI due to renal failure and inability to lie still. She was started on ASA and high intensity statin therapy. Carotid doppler showed no significant stenosis. Continuous telemetry showed no evidence of arrhythmia. PT/OT/FILLING AND PACKING SUPERVISOR evaluations were done in the hospital. PM&R consulted and felt that she was not appropriate for acute rehab, but could benefit from subacute rehab, which she has declined. She was referred to Home Health for ongoing PT. She has been advised that she will not be able to drive any more due to visual deficit. Pre-Renal MEG due to dehydration c/b metabolic acidosis: renal function and acidosis improved with IVF hydration. Acute Metabolic Encephalopathy due to Acute CVA and Metabolic Derangements: resolved with IVF hydration. Psychiatry was consulted initially due to AMS and restlessness, but mental status is now back at baseline (per her friend and colleague). - Additional Information Resuscitation Status: Do Not Resuscitate Discharge Diet: Regular Discharge Activity: Activity As Tolerated Referrals: MARY BERMUDEZ FNP-C [Primary Care Provider] - 03/04/20 9:00 am Prescriptions: Atorvastatin Calcium [Lipitor 40 mg Tablet] 40 mg PO QHS #30 tablet Home Medications: Amlodipine Besylate [Norvasc 5 mg Tablet] 5 mg PO DAILY 09/12/19 Trazodone HCl 150 mg PO QHS 09/12/19 Dextroamphetamine/Amphetamine [Adderall Xr 5 mg Capsule] 20 mg PO DAILY 02/23/20 Lisinopril/Hydrochlorothiazide [Lisinopril-Hctz 20-12.5 mg Tab] 1 each PO BID 02/23/20 Sertraline HCl 200 mg PO DAILY 02/23/20 Aspirin [Ecotrin 81 mg EC Tablet] 81 mg PO QHS #0 tabec 02/26/20 Atorvastatin Calcium [Lipitor 40 mg Tablet] 40 mg PO QHS #30 tablet 02/26/20 History of Present Illiness History of Present Illness: PANFILO CALVIN is a 65 year old female Physical Exam Vital Signs: Temp Pulse Resp BP Pulse Ox 98.3 F 78 16 154/79 H 100 02/26/20 08:20 02/26/20 08:19 02/26/20 08:19 02/26/20 08:19 02/26/20 08:19 Intake & Output 02/25/20 02/26/20 02/27/20 06:59 06:59 06:59 Intake Total 3095 1010 Output Total 2350 Balance 745 1010 Weight 87.2 kg 85.7 kg Results Laboratory Results: WBC 7.3 10^3/uL (4.0-10.5) 02/22/20 22:40 RBC 3.97 10^6/uL (3.72-5.28) 02/22/20 22:40 Hgb 11.4 g/dL (12.0-15.5) L 02/22/20 22:40 Hct 33.4 % (36.0-47.0) L 02/22/20 22:40 MCV 84 fl (80-97) 02/22/20 22:40 MCH 28.6 pg (27.0-33.4) 02/22/20 22:40 MCHC 34.0 g/dL (32.0-36.0) 02/22/20 22:40 RDW 15.7 % (11.5-14.0) H 02/22/20 22:40 Plt Count 238 10^3/uL (150-450) 02/22/20 22:40 Lymph % (Auto) 10.6 % (13-45) L 02/22/20 22:40 [place] % (Auto) 6.3 % (3-13) 02/22/20 22:40 Eos % (Auto) 0.2 % (0-6) 02/22/20 22:40 Baso % (Auto) 0.5 % (0-2) 02/22/20 22:40 Absolute Neuts (auto) 6.0 10^3/uL (1.7-8.2) 02/22/20 22:40 Absolute Lymphs (auto) 0.8 10^3/uL (0.5-4.7) 02/22/20 22:40 Absolute Monos (auto) 0.5 10^3/uL (0.1-1.4) 02/22/20 22:40 Absolute Eos (auto) 0.0 10^3/uL (0.0-0.6) 02/22/20 22:40 Absolute Basos (auto) 0.0 10^3/uL (0.0-0.2) 02/22/20 22:40 Seg Neutrophils % 82.4 % (42-78) H 02/22/20 22:40 Sodium 139.0 mmol/L (137-145) 02/26/20 04:12 Potassium 3.6 mmol/L (3.6-5.0) 02/26/20 04:12 Chloride 106 mmol/L (98-107) 02/26/20 04:12 Carbon Dioxide 25 mmol/L (22-30) 02/26/20 04:12 Anion Gap 8 (5-19) 02/26/20 04:12 BUN 12 mg/dL (7-20) 02/26/20 04:12 Creatinine 1.24 mg/dL (0.52-1.25) 02/26/20 04:12 Est GFR ( Amer) 53 (>60) L 02/26/20 04:12 Est GFR (MDRD) Non-Af 43 (>60) L 02/26/20 04:12 Glucose 115 mg/dL (75-110) H 02/26/20 04:12 Hemoglobin A1c % 5.7 % (4.7-6.0) 02/24/20 05:13 Lactic Acid 0.8 mmol/L (0.7-2.1) 02/23/20 01:56 Calcium 9.7 mg/dL (8.4-10.2) 02/26/20 04:12 Phosphorus 3.3 mg/dL (2.5-4.5) 02/23/20 06:48 Magnesium 2.0 mg/dL (1.6-2.3) 02/24/20 05:13 Total Bilirubin 0.7 mg/dL (0.2-1.3) 02/22/20 22:40 Direct Bilirubin 0.6 mg/dL (0.0-0.4) H 02/22/20 22:40 Neonat Total Bilirubin Not Reportable 02/22/20 22:40 Neonat Direct Bilirubin Not Reportable 02/22/20 22:40 Neonat Indirect Bili Not Reportable 02/22/20 22:40 AST 60 U/L (14-36) H 02/22/20 22:40 ALT 67 U/L (<35) H 02/22/20 22:40 Alkaline Phosphatase 272 U/L (38-126) H 02/22/20 22:40 Creatine Kinase 83 U/L (30-135) 02/22/20 22:40 Troponin I 0.061 ng/mL 02/23/20 06:48 Total Protein 6.9 g/dL (6.3-8.2) 02/22/20 22:40 Albumin 3.9 g/dL (3.5-5.0) 02/23/20 06:48 Lipase 24.8 U/L (23-300) 02/22/20 22:40 TSH 0.33 uIU/mL (0.47-4.68) L 02/23/20 06:48 Urine Color YELLOW 02/23/20 01:17 Urine Appearance CLEAR 02/23/20 01:17 Urine pH 5.0 (5.0-9.0) 02/23/20 01:17 Ur Specific [place] 1.014 02/23/20 01:17 Urine Protein NEGATIVE mg/dL (NEGATIVE) 02/23/20 01:17 Urine Glucose (UA) NEGATIVE mg/dL (NEGATIVE) 02/23/20 01:17 Urine Ketones NEGATIVE mg/dL (NEGATIVE) 02/23/20 01:17 Urine Blood NEGATIVE (NEGATIVE) 02/23/20 01:17 Urine Nitrite NEGATIVE (NEGATIVE) 02/23/20 01:17 Urine Bilirubin NEGATIVE (NEGATIVE) 02/23/20 01:17 Urine Urobilinogen 2.0 mg/dL (<2.0) H 02/23/20 01:17 Ur Leukocyte Esterase NEGATIVE (NEGATIVE) 02/23/20 01:17 Urine WBC (Auto) 2 /HPF 02/23/20 01:17 Urine RBC (Auto) 10 /HPF 02/23/20 01:17 U Hyaline Cast (Auto) 20 /LPF 02/23/20 01:17 Urine Bacteria (Auto) 3+ /HPF 02/23/20 01:17 Squamous Epi Cells Auto 8 /HPF 02/23/20 01:17 Urine Mucus (Auto) RARE /LPF 02/23/20 01:17 Urine Ascorbic Acid NEGATIVE (NEGATIVE) 02/23/20 01:17 Urine Opiates Screen NEGATIVE 02/23/20 01:17 Urine Methadone Screen NEGATIVE 02/23/20 01:17 Ur Barbiturates Screen NEGATIVE 02/23/20 01:17 Ur Phencyclidine Scrn NEGATIVE 02/23/20 01:17 Ur Amphetamines Screen UNCONFIRMED POSITIVE 02/23/20 01:17 U Benzodiazepines Scrn UNCONFIRMED POSITIVE 02/23/20 01:17 Urine Cocaine Screen NEGATIVE 02/23/20 01:17 U Marijuana (THC) Screen NEGATIVE 02/23/20 01:17 02/22/20 02/23/20 22:40 06:48 Troponin I 0.071 0.061 Impressions: Chest X-Ray 02/22/20 23:28 IMPRESSION: No acute cardiopulmonary abnormality. copyright 2010 [employer]- All Rights Reserved Head CT 02/23/20 00:10 IMPRESSION: Acute infarct involving the superior aspect of the left occipital lobe. No hemorrhage, midline shift or herniation. TECHNICAL DOCUMENTATION: Quality ID # 436: Final reports with documentation of one or more dose reduction techniques (e.g., Automated exposure control, adjustment of the mA and/or kV according to patient size, use of iterative reconstruction technique) copyright 2010 [employer]- All Rights Reserved Carotid Doppler Study 02/24/20 00:00 IMPRESSION: 1. Scattered bilateral ICA plaque with less than 50% stenosis. 2. Antegrade vertebral arteries. Stroke Is this a Stroke Patient?: Yes Stroke Pt being discharged on Anti-thrombolytic therapy?: Yes Stroke Pt being discharged on Anti-coagulation therapy?: No Reason(s) for not prescribing Anti-coagulation therapy:: Tx not tolerated Stroke Pt being discharged on Statins?: Yes Acute Heart Failure Is this a Heart Failure Patient?: No
[2020-02-26 16:52] VITALS: BP 133/62
== END 2020-02-26 17:46 | disposition home health service (06) | DRG 64 ==
LOC: ER 22:27 → EH 02-23 02:13 → 3W 02-23 06:01
PROVIDERS: ADMIT Hospitalist; ATTEND Hospitalist
DX: I63.89 Other cerebral infarction (principal); G93.41 Metabolic encephalopathy; N17.9 Acute kidney failure, unspecified; F33.1 Major depressive disorder, recurrent, moderate; E87.1 Hypo-osmolality and hyponatremia; E87.2 Acidosis; R27.8 Other lack of coordination; H53.40 Unspecified visual field defects; E86.0 Dehydration; F90.9 Attention-deficit hyperactivity disorder, unspecified type; F41.9 Anxiety disorder, unspecified; Z66 Do not resuscitate; Z82.49 Family history of ischemic heart disease and other diseases of the circulatory system; Z98.84 Bariatric surgery status; Z90.49 Acquired absence of other specified parts of digestive tract; Z88.5 Allergy status to narcotic agent; Z88.0 Allergy status to penicillin; R41.0 Disorientation, unspecified
CPT/HCPCS: 36415; 70450; 71045; 80048; 80053; 80069; 80307; 81001; 82550; 83036; 83605; 83690; 83735; 84443; 84484; 85025; 93005; 93010; 93880; 96361; 96374; 99285; J1644; J2405; J3490; J7030; J7060

== ENCOUNTER 2020-04-07 14:25 | Emergency (ER) | payer MEDICARE, MEDICAID ==
[2020-04-07 14:34] VITALS: BP 114/66
[2020-04-07] MEDS ORDERED: KETOROLAC TROMETHAMINE INJ/PF 30 MG/1 ML SDV IV ONE (14:44)
--- NOTE | 2020-04-07 14:45 | ER Document Report ---
ED Medical Screen (RME) - General Stated Complaint: ABDOMINAL PAIN Time Seen by Provider: 04/07/20 14:37 Primary Care Provider: MARY BERMUDEZ FNP-C [Primary Care Provider] - Follow up as needed TRAVEL OUTSIDE OF THE [place] IN LAST 30 DAYS: No - HPI Notes: 04/07/20 14:38 65-year-old female with a history of diverticulitis, CVA and kidney disease presents to the emergency room today with complaints of left lower quadrant abdominal pain that started around 8:00 this morning, woke her up from sleep. Reports pain is 5 out of 5, sharp when she is walking, throbbing when she is sitting. Denies any nausea vomiting, diarrhea. Has not tried any [id number] medications for this pain. Reports the pain radiates down to her left pelvic area. Denies any vaginal bleeding or vaginal discharge. Reports that her last bowel movement was this morning, no melena. Reports pain has been constant since 8:00 this morning. Denies any trauma. Denies any chest pain, shortness of breath, lightheadedness, numbness or tingling down arms or legs, facial numbness, lightheadedness or dizziness I have greeted and performed a rapid initial assessment of this patient. A comprehensive ED assessment and evaluation of the patient, analysis of test results and completion of the medical decision making process will be conducted by additional ED providers. PHYSICAL EXAMINATION: GENERAL: Well-appearing, well-nourished and in no acute distress. HEAD: Atraumatic, normocephalic. EYES: Pupils equal round extraocular movements intact, conjunctiva are normal. NECK: Normal range of motion CV: s1, s2 regular LUNGS: No respiratory distress abd: LLQ abd pain on palpation. - Related Data Allergies/Adverse Reactions: codeine [Codeine] Allergy (Intermediate, Verified 04/07/20 14:37) HIVES AND BAD MUSCLE SPASMS Penicillins Allergy (Intermediate, Verified 04/07/20 14:37) HIVES AND BAD MUSCLE SPASMS Past Medical History - Past Medical History Cardiac Medical History: Reports: Hx Hypertension Denies: Hx Congestive Heart Failure, Hx Coronary Artery Disease, Hx Heart Attack Pulmonary Medical History: Denies: Hx Asthma, Hx Bronchitis, Hx COPD, Hx Pneumonia Neurological Medical History: Denies: Hx Cerebrovascular Accident, Hx Seizures Renal/ Medical History: Reports: Hx Renal Insufficiency. Denies: Hx Peritoneal Dialysis GI Medical History: Reports: Hx Diverticulitis - Treated at a hospital in [place], [place] last year Musculoskeltal Medical History: Denies Hx Arthritis, Reports Hx Musculoskeletal Trauma Psychiatric Medical History: Reports: Hx Anxiety, Hx Attention Deficit Hyperactivity Disorder, Hx Depression Past Surgical History: Reports: Hx Abdominal Surgery - gastric bypass, Hx Breast Surgery - reduction, Hx Cholecystectomy, Hx Gastric Bypass Surgery, Other - Breast reduction - Immunizations Immunizations up to date: No Hx Diphtheria, Pertussis, Tetanus Vaccination: No Physical Exam - Vital signs Vitals: Temp Pulse Resp BP Pulse Ox 98.2 F 72 20 114/66 99 04/07/20 14:33 04/07/20 14:33 04/07/20 14:33 04/07/20 14:33 04/07/20 14:33 Course - Vital Signs Vital signs: Temp Pulse Resp BP Pulse Ox 98.2 F 72 20 114/66 99 04/07/20 14:33 04/07/20 14:33 04/07/20 14:33 04/07/20 14:33 04/07/20 14:33 Doctor's Discharge - Discharge Referrals: MARY BERMUDEZ FNP-C [Primary Care Provider] - Follow up as needed
[2020-04-07 15:28] LABS: ABSOLUTE BASOPHILS # (AUTO) 0.1 10^3/uL (0.0-0.2); ABSOLUTE EOSINOPHILS # (AUTO) 0.2 10^3/uL (0.0-0.6); ABSOLUTE LYMPHOCYTES (AUTO) 1.7 10^3/uL (0.5-4.7); ABSOLUTE MONOCYTES (AUTO) 0.6 10^3/uL (0.1-1.4); ABSOLUTE NEUT (AUTO) 6.9 10^3/uL (1.7-8.2); BASOPHILS % (AUTO) 0.6 % (0-2); EOSINOPHILS % (AUTO) 2.2 % (0-6); HEMATOCRIT 32.6 % (36.0-47.0); HEMOGLOBIN 11.3 g/dL (12.0-15.5); LYMPHOCYTES % (AUTO) 18.3 % (13-45); MEAN CORPUSCULAR HEMOGLOBIN 29.8 pg (27.0-33.4); MEAN CORPUSCULAR HGB CONC 34.8 g/dL (32.0-36.0); MEAN CORPUSCULAR VOLUME 86 fl (80-97); MONOCYTES % (AUTO) 5.8 % (3-13); PLATELET COUNT 244 10^3/uL (150-450); RED BLOOD COUNT 3.81 10^6/uL (3.72-5.28); RED CELL DISTRIBUTION WIDTH 15.3 % (11.5-14.0); SEGMENTED NEUTROPHILS % (AUTO) 73.1 % (42-78); TOTAL CELLS COUNTED % (AUTO) 100 %; WHITE BLOOD COUNT 9.5 10^3/uL (4.0-10.5)
[2020-04-07 15:47] LABS: ALBUMIN 4.1 g/dL (3.5-5.0); ALKALINE PHOSPHATASE 331 U/L (38-126); ANION GAP 11 (5-19); ASPARTATE AMINO TRANSFERASE 106 U/L (14-36); BILIRUBIN,DIRECT 0.3 mg/dL (0.0-0.4); BILIRUBIN,TOTAL 0.7 mg/dL (0.2-1.3); BLOOD UREA NITROGEN 21 mg/dL (7-20); CALCIUM 10.3 mg/dL (8.4-10.2); CARBON DIOXIDE 20 mmol/L (22-30); CHLORIDE 108 mmol/L (98-107); GLUCOSE 105 mg/dL (75-110); POTASSIUM 4.4 mmol/L (3.6-5.0); TOTAL PROTEIN 6.9 g/dL (6.3-8.2)
--- NOTE | 2020-04-07 16:08 | ER Document Report ---
ED GI/ - General Chief Complaint: Lower Abdominal Pain Stated Complaint: ABDOMINAL PAIN Time Seen by Provider: 04/07/20 14:37 Primary Care Provider: MARY BERMUDEZ FNP-C [Primary Care Provider] - Follow up as needed Notes: CHIEF COMPLAINT: Lower abdominal pain today HPI: 65-year-old female with history of hypertension, CVA with only right peripheral field deficit, not on blood thinners, diverticulitis presenting for evaluation of lower abdominal pain today. States it feels different than her diverticulitis. Has not had nausea or vomiting. Denies dysuria. Did move her bowels today. Has not had a fever. 97% on room air not hypoxic ROS: See HPI - all other systems were reviewed and are otherwise negative Constitutional: no fever Eyes: no drainage, no blurred vision ENT: no runny nose, no sore throat Cardiovascular: no chest pain Resp: no SOB, no cough GI: no vomiting, no diarrhea, + abdominal pain : no dysuria Integumentary: no rash Allergy: no hives Musculoskeletal: no extremity pain or swelling Neurological: no numbness/tingling, no weakness MEDICATIONS: I agree with the patient medications as charted by the RN. ALLERGIES: I agree with the allergies as charted by the RN. PAST MEDICAL HISTORY/PAST SURGICAL HISTORY: Reviewed and agree as charted by RN. SOCIAL HISTORY: Reviewed and agree as charted by RN. FAMILY HISTORY: No significant familial comorbid conditions directly related to patient complaint EXAM: Reviewed vital signs as charted by RN. CONSTITUTIONAL: Alert and oriented and responds appropriately to questions. Well-appearing; well-nourished HEAD: Normocephalic; atraumatic EYES: PERRL; Conjunctivae clear, sclerae non-icteric ENT: normal nose; no rhinorrhea; moist mucous membranes; pharynx without lesions noted, no uvula edema or deviation, no tonsillar hypertrophy, phonation normal NECK: Supple without meningismus; non-tender; no cervical lymphadenopathy, no masses CARD: RRR; no murmurs, no clicks, no rubs, no gallops; symmetric distal pulses RESP: Normal chest excursion without splinting or tachypnea; breath sounds clear and equal bilaterally; no wheezes, no rhonchi, no rales, pulse oximetry ABD/GI: Obese, normal bowel sounds; non-distended; soft, moderate tenderness in the left upper left lower quadrants on palpation mild tenderness right lower quadrant on palpation, no rebound, no guarding; no palpable organomegaly or masses. BACK: The back appears normal and is non-tender to palpation, there is no CVA tenderness EXT: Normal ROM in all joints; non-tender to palpation; no cyanosis, no effusions, no edema SKIN: Normal color for age and race; warm; dry; good turgor; no acute lesions noted NEURO: Moves all extremities equally; Motor and sensory function intact PSYCH: The patient's mood and manner are appropriate. Grooming and personal hygiene are appropriate. MDM: 65-year-old female presenting for evaluation of lower abdominal pain. States it feels different than her diverticulitis initial screening labs placed via triage process. TRAVEL OUTSIDE OF THE [place] IN LAST 30 DAYS: No - Related Data Allergies/Adverse Reactions: codeine [Codeine] Allergy (Intermediate, Verified 04/07/20 14:37) HIVES AND BAD MUSCLE SPASMS Penicillins Allergy (Intermediate, Verified 04/07/20 14:37) HIVES AND BAD MUSCLE SPASMS Past Medical History - Social History Smoking Status: Never Smoker Frequency of alcohol use: None Drug Abuse: None Family History: None, CAD, CVA, DM, Hyperlipidemia, Hypertension, Malignancy Patient has homicidal ideation: No - Past Medical History Cardiac Medical History: Reports: Hx Hypertension Denies: Hx Congestive Heart Failure, Hx Coronary Artery Disease, Hx Heart Attack Pulmonary Medical History: Denies: Hx Asthma, Hx Bronchitis, Hx COPD, Hx Pneumonia Neurological Medical History: Denies: Hx Cerebrovascular Accident, Hx Seizures Renal/ Medical History: Reports: Hx Renal Insufficiency. Denies: Hx Peritoneal Dialysis GI Medical History: Reports: Hx Diverticulitis - Treated at a hospital in [place], [place] last year Musculoskeletal Medical History: Denies Hx Arthritis, Reports Hx Musculoskeletal Trauma Psychiatric Medical History: Reports: Hx Anxiety, Hx Attention Deficit Hyperactivity Disorder, Hx Depression Past Surgical History: Reports: Hx Abdominal Surgery - gastric bypass, Hx Breast Surgery - reduction, Hx Cholecystectomy, Hx Gastric Bypass Surgery, Other - Breast reduction - Immunizations Immunizations up to date: No Hx Diphtheria, Pertussis, Tetanus Vaccination: No Physical Exam - Vital signs Vitals: Temp Pulse Resp BP Pulse Ox 98.2 F 72 20 114/66 99 04/07/20 14:33 04/07/20 14:33 04/07/20 14:33 04/07/20 14:33 04/07/20 14:33 Course - Re-evaluation Re-evalutation: 04/07/20 18:52 CT imaging shows left-sided diverticulitis. I discussed this with the patient. She follows with Dr. Terrazas gastroenterology. Will place her on Cipro Flagyl. Patient states that she can take Percocet for pain. - Vital Signs Vital signs: Temp Pulse Resp BP Pulse Ox 98.2 F 72 20 114/66 99 04/07/20 14:33 04/07/20 14:33 04/07/20 14:33 04/07/20 14:33 04/07/20 14:33 - Laboratory Result Diagrams: 04/07/20 15:06 04/07/20 15:06 Laboratory results interpreted by me: 04/07/20 04/07/20 04/07/20 15:06 15:06 16:09 Hgb 11.3 L Hct 32.6 L RDW 15.3 H Chloride 108 H Carbon Dioxide 20 L BUN 21 H Creatinine 1.69 H Est GFR ( Amer) 37 L Est GFR (MDRD) Non-Af 30 L Calcium 10.3 H AST 106 H ALT 88 H Alkaline Phosphatase 331 H Ur Leukocyte Esterase TRACE H Discharge - Discharge Clinical Impression: Diverticulitis Condition: Stable Disposition: HOME, SELF-CARE Instructions: Diverticulitis ([facility]) Additional Instructions: Your CT imaging today revealed that you have left-sided diverticulitis. Take the antibiotics to treat this. Pain medication as prescribed no driving if taking narcotics for pain return for uncontrolled pain or fever greater than 101 otherwise follow-up with your senior solutions engineer for further evaluation Prescriptions: Ciprofloxacin HCl [Cipro 500 mg Tablet] 500 mg PO BID #20 tablet Metronidazole [Flagyl 500 mg Tablet] 500 mg PO BID #20 tablet Oxycodone HCl/Acetaminophen [Percocet 5-325 mg Tablet] 1 tab PO Q4H PRN #15 tab PRN Reason: Referrals: MARY BERMUDEZ FNP-C [Primary Care Provider] - Follow up as needed MATHEW TERRAZAS MD [ACTIVE STAFF] - Follow up as needed
[2020-04-07] MEDS ORDERED: MORPHINE SULFATE 10 MG/ML INJ IV ONE (16:09)
[2020-04-07] MEDS ORDERED: ONDANSETRON HCL INJ/PF 4 MG/2 ML SDV IV ONE (16:09)
[2020-04-07] MEDS ORDERED: NORMAL SALINE 500 ML IV ONE (16:18)
[2020-04-07 16:32] LABS: APPEARANCE,URINE CLEAR; BILIRUBIN,URINE NEGATIVE (NEGATIVE); COLOR,URINE YELLOW; GLUCOSE, URINE NEGATIVE (NEGATIVE); KETONES,URINE NEGATIVE (NEGATIVE); LEUKOCYTE ESTERASE,URINE TRACE (NEGATIVE); NITRITE,URINE NEGATIVE (NEGATIVE); PROTEIN,URINE NEGATIVE (NEGATIVE); URINE SPECIFIC GRAVITY 1.011; UROBILINOGEN,URINE NEGATIVE mg/dL (<2.0)
--- NOTE | 2020-04-07 16:40 | RADIOLOGY REPORT (SQ) ---
EXAM DESCRIPTION: U/S NON OB PEL TV W/DOPPLER IMAGES COMPLETED DATE/TIME: 04/07/2020 3:00 pm REASON FOR STUDY: L pelvic pain, started at 8am, no vag bleeding COMPARISON: CT abdomen and pelvis, 09/12/2019. . TECHNIQUE: Dynamic and static grayscale images acquired of the pelvis via transabdominal and transva ginal approach and recorded on PACS. Additional selected color Doppler and spectral images recorded. LIMITATIONS: None. FINDINGS: UTERUS: Contour normal. No mass. ENDOMETRIAL STRIPE: No focal or generalized thickening. No masses. CERVIX: No nabothian cysts. RIGHT OVARY AND DOPPLER: Normal size. No worrisome masses. Normal arterial vascular flow without evid ence for torsion. LEFT OVARY AND DOPPLER: Ovary not visualized. FREE FLUID: None noted. OTHER: No other significant finding. MEASUREMENTS: UTERUS: 7.7 x 3.6 x 2.7 cm ENDOMETRIAL STRIPE: 3 mm RIGHT OVARY: 2.1 x 1.5 x 1.6 cm LEFT OVARY: Not visualized. No adnexal mass. IMPRESSION: Left ovary is not visualized. There is no left adnexal mass. Normal sonographic appear ance of the right ovary and uterus. TECHNICAL DOCUMENTATION: JOB ID: [id number] [employer]- All Rights Reserved Rev-10/27 Reading location - IP/workstation name: [email or web address]
--- NOTE | 2020-04-07 18:23 | RADIOLOGY REPORT (SQ) ---
EXAM DESCRIPTION: CT ABD/PELVIS WITH IV ORAL IMAGES COMPLETED DATE/TIME: 04/07/2020 6:04 pm REASON FOR STUDY: LLQ abd pain, L pelvic pain, started at 8am COMPARISON: 09/12/2019 TECHNIQUE: CT scan of the abdomen and pelvis performed using helical scanning technique with dynamic intravenous contrast injection. No oral contrast. Images reviewed with lung, soft tissue, and bone windows. Reconstructed coronal and sagittal MPR images reviewed. Delayed images for evaluation of the urinary system also acquired. All images stored on PACS. All CT scanners at this facility use dose modulation, iterative reconstruction, and/or weight based d osing when appropriate to reduce radiation dose to as low as reasonably achievable (ALARA). [facility]: Dose Right [facility]: CareDose [facility]: Dose Right [facility]: Teradose 4D [facility]: Construct CONTRAST TYPE AND DOSE: contrast/concentration: Isovue 300.00 mmol/ml; Total Contrast Delivered: 100 .0 ml; Total Saline Delivered: 53.9 ml RENAL FUNCTION: Creatinine 1.69 BUN=21 RADIATION DOSE: CT Rad equipment meets quality standard of care and radiation dose reduction techniq ues were employed. CTDIvol: NaN - NaN mGy. DLP: 0 mGy-cm.. LIMITATIONS: None. FINDINGS: LOWER CHEST: Mild opacity at the lung bases, more so on the left, may be on the basis of atelectasis. Left lung base, considerations for this finding includes atelectasis. LIVER: Normal size. No masses. No dilated ducts. 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 Stable low attenuated subc apsular focal area along the lateral aspect of the spleen. PANCREAS: No masses. No significant calcifications. No adjacent inflammation or peripancreatic fluid collections. Pancreatic duct not dilated. GALLBLADDER: Prior cholecystectomy. ADRENAL GLANDS: No significant masses or asymmetry. RIGHT KIDNEY AND URETER: No solid masses. No significant calcifications. No hydronephrosis or hyd roureter. LEFT KIDNEY AND URETER: Stable small left renal cyst. No significant calcifications. No hydronephr osis or hydroureter. AORTA AND VESSELS: No aneurysm. No dissection. Renal arteries, SMA, celiac without stenosis. RETROPERITONEUM: No retroperitoneal adenopathy, hemorrhage or masses. BOWEL AND PERITONEAL CAVITY: Colonic diverticulosis. Mild thickening involving the wall of the dist al descending colon with haziness and stranding involving the surrounding fat. No evidence of absces s or free fluid. Considerations for this finding includes diverticulitis. Prior gastric bypass pro cedure. APPENDIX: Normal. PELVIS: No mass. No free fluid. The urinary bladder is decompressed. ABDOMINAL WALL: No masses. No hernias. BONES: The osseous structures are stable in appearance. OTHER: Stable slightly enhancing soft tissue nodule along the left mid lateral chest wall since the examination dating back to 01/10/2018. IMPRESSION: 1. Colonic diverticulosis. The constellation of findings involving the distal descendi ng colon as above suggest diverticulitis. No abscess or free fluid. 2. Additional stable findings as above. TECHNICAL DOCUMENTATION: JOB ID: [id number] Quality ID # [id number]: Final reports with documentation of one or more dose reduction techniques (e.g., Au tomated exposure control, adjustment of the mA and/or kV according to patient size, use of iterative reconstruction technique) 2010 [employer]- All Rights Reserved Reading location - IP/workstation name: [email or web address]
[2020-04-07] MEDS ORDERED: CIPROFLOXACIN HCL 500 MG TABLET PO ONE (18:50)
[2020-04-07] MEDS ORDERED: METRONIDAZOLE 500 MG TABLET PO ONE (18:51)
[2020-04-07] MEDS ORDERED: OXYCODONE-ACETAMINOPHEN 5-325 MG TABLET PO ONE (18:51)
== END 2020-04-07 19:06 | disposition home or self-care (01) ==
LOC: ER 14:25
DX: K57.92 Diverticulitis of intestine, part unspecified, without perforation or abscess without bleeding (principal); I10 Essential (primary) hypertension; Z88.6 Allergy status to analgesic agent; Z88.5 Allergy status to narcotic agent; Z98.84 Bariatric surgery status
CPT/HCPCS: 99285; 96361; 96374; 96375; 36415; 83690; 85025; 80053; 81001; 76830; 93976; 74177; J1885; J2270; J2405; J7040

== ENCOUNTER 2020-04-25 21:39 | Emergency (ER) | payer MEDICARE, MEDICAID ==
[2020-04-25] MEDS ORDERED: ONDANSETRON HCL INJ/PF 4 MG/2 ML SDV IV ONE (21:52)
[2020-04-25] MEDS ORDERED: HYDROMORPHONE HCL INJ/PF 2 MG/ML AMPULE IV ONE ×2 (21:52→23:20)
[2020-04-25] MEDS ORDERED: DIPH/PERTUSS(ACELL)/TETANUS VAC/PF 0.5 ML SYR (>=10YO) IM ONE (21:53)
--- NOTE | 2020-04-25 22:02 | ER Document Report ---
ED General - General Chief Complaint: Head Injury Stated Complaint: HEAD WOUND Time Seen by Provider: 04/25/20 21:44 Primary Care Provider: MARY BERMUDEZ FNP-C [Primary Care Provider] - Follow up as needed TRAVEL OUTSIDE OF THE [place] IN LAST 30 DAYS: No - HPI Context: This is a 65-year-old female presenting to the emergency department for evaluation headache, head laceration, bilateral knee contusions and knee pain after falling at home just prior to arrival. Patient states she was going up her stairs and tripped falling forward and hitting her head on the iron railing. Patient states her pain is a 5 out of 5. Patient denies loss of consciousness. Patient states palpation of her forehead where the laceration is exacerbates the pain and she denies alleviating factors. Patient states that palpation of her knees also exacerbates her knee pain and movement of her lower extremities also exacerbates her pain. Patient again denies alleviating factors in terms of her knee pain. Patient states her last tetanus booster was approximately 5 years ago. Patient takes a baby aspirin daily. Patient denies visual changes, chest pain, shortness of breath, loss of sense of taste or loss of sense of smell, history of prior COVID-19 infection, known exposure to persons positive for COVID-19 or exposure to persons under investigation for COVID-19. Patient states she does not drink alcohol and does not smoke. Patient states she is feeling somewhat dizzy and nauseated at this time. Associated symptoms: Other - See HPI - Related Data Allergies/Adverse Reactions: codeine [Codeine] Allergy (Intermediate, Verified 04/25/20 21:53) HIVES AND BAD MUSCLE SPASMS Penicillins Allergy (Intermediate, Verified 04/25/20 21:53) HIVES AND BAD MUSCLE SPASMS Past Medical History - Social History Smoking Status: Never Smoker Chew tobacco use (# tins/day): No Drug Abuse: None Family History: None, CAD, CVA, DM, Hyperlipidemia, Hypertension, Malignancy Patient has homicidal ideation: No - Past Medical History Cardiac Medical History: Reports: Hx Hypertension Denies: Hx Congestive Heart Failure, Hx Coronary Artery Disease, Hx Heart Attack Pulmonary Medical History: Denies: Hx Asthma, Hx Bronchitis, Hx COPD, Hx Pneumonia Neurological Medical History: Denies: Hx Cerebrovascular Accident, Hx Seizures Renal/ Medical History: Reports: Hx Renal Insufficiency. Denies: Hx Peritoneal Dialysis GI Medical History: Reports: Hx Diverticulitis - Treated at a hospital in [place], [place] last year Musculoskeletal Medical History: Denies Hx Arthritis, Reports Hx Musculoskeletal Trauma Psychiatric Medical History: Reports: Hx Anxiety, Hx Attention Deficit Hyperactivity Disorder, Hx Depression Past Surgical History: Reports: Hx Abdominal Surgery - gastric bypass, Hx Breast Surgery - reduction, Hx Cholecystectomy, Hx Gastric Bypass Surgery, Other - Breast reduction - Immunizations Immunizations up to date: No Hx Diphtheria, Pertussis, Tetanus Vaccination: No Physical Exam - Vital signs Vitals: Temp Pulse Resp BP Pulse Ox 97.8 F 78 20 195/106 H 99 04/25/20 21:52 04/25/20 21:52 04/25/20 21:52 04/25/20 21:52 04/25/20 21:52 Course - Re-evaluation Re-evalutation: 04/26/20 00:07 Patient states her pain and nausea as well as dizziness is improved at this time. Results of ED MSE discussed with patient. All questions were answered. Emergency signs and symptoms, reasons to return to the emergency department discussed with patient. Patient was instructed to follow-up with her PCP in 5 days for suture removal. - Vital Signs Vital signs: Temp Pulse Resp BP Pulse Ox 97.8 F 78 20 195/106 H 99 04/25/20 21:52 04/25/20 21:52 04/25/20 21:52 04/25/20 21:52 04/25/20 21:52 - Diagnostic Test Radiology reviewed: Reports reviewed Procedures - Laceration/Wound Repair Right Head Time completed: 00:00 - right side of forehead, over eyebrow Wound length (cm): 4 Wound's Depth, Shape: Linear Laceration pre-procedure: Sterile PPE donned, Betadine prep applied, Sterile drapes applied Anesthetic type: Other - 2% lidocaine with epi Volume Anesthetic (mLs): 4 Wound explored: Clean Wound Repaired With: Sutures Suture Size/Type: 6:0, Prolene Number of Sutures: 11 - Simple interrupted Layer Closure?: No Post-procedure wound care: Sterile dressing applied Post-procedure NV exam normal: Yes Complications: No Discharge - Discharge Clinical Impression: Skin abrasion Accidental fall Qualifiers: Encounter type: initial encounter Qualified Code(s): W19.XXXA - Unspecified fall, initial encounter Head contusion Qualifiers: Encounter type: initial encounter Contusion of head detail: other part of head Qualified Code(s): S00.83XA - Contusion of other part of head, initial encounter Forehead laceration Qualifiers: Encounter type: initial encounter Qualified Code(s): S01.81XA - Laceration without foreign body of other part of head, initial encounter Contusion of knee, left Qualifiers: Encounter type: initial encounter Qualified Code(s): S80.02XA - Contusion of left knee, initial encounter Contusion of knee, right Qualifiers: Encounter type: initial encounter Qualified Code(s): S80.01XA - Contusion of right knee, initial encounter Condition: Stable Disposition: HOME, SELF-CARE Instructions: Antibiotic Ointment Protection (OM), Laceration Care (OM), Oral Narcotic Medication (OM), Tetanus Immunization Given ([facility]) Additional Instructions: Follow-up with your PCP on 05/01/2020 to have your stitches removed. Return to the Emergency Department without delay if any worse. HOME CARE INSTRUCTIONS & INFORMATION: Thank you for choosing us for your medical needs. We hope you're satisfied with the care you received. After you leave, you must properly care for your problem and, at the same time, observe its progress. Any condition can change. Some illnesses can change rapidly over hours or days. If your condition worsens, return to the Emergency Department or see your physician promptly. ABOUT YOUR X-RAYS AND EKG'S: If you had an EKG or X-rays taken, they have been read by the Emergency Physician. The X-rays and EKG's will also be read by a Radiologist or Bulb Assembler within 24 hours. If discrepancies are noted, you will be notified by telephone. Please be certain the ED has a correct telephone number & address where you can be reached. Also, realize that some fractures or abnormalities do not show up on initial X-rays. If your symptoms continue, see your physician. ABOUT YOUR LABORATORY TEST: If you had laboratory tests, the results have been reviewed by the Emergency Physician. Some test results (for example cultures) may not be available for several days. You will be contacted if any test result shows you need additional treatment. Please be certain the ED has a correct telephone number and address where you can be reached. ABOUT YOUR MEDICATIONS: You will receive instructions on how to take your medicine on the prescription label you receive. Additional information may be provided by the Pharmacy. If you have questions afterwards, call the ED for clarification or further instructions. Some prescribed medications may cause drowsiness. Do not perform tasks such as driving a car or operating machinery without consulting your Pharmacist. If you feel you need a refill of pain medication, your condition will need re-evaluation. Please do not call for a refill of any medication. ABOUT YOUR SIGNATURE: Signature of this document acknowledges to followin. Understanding that you received emergency treatment and that you may be released before al medical problems are known or treated. Please be certain the ED has a correct phone number & address where you can be reached. 2. Acknowledgement that you will arrange for follow-up care as recommended. 3. Authorization for the Emergency Physician to provide information to your follow-up Physician in order to maximize your care. AT ANY TIME, IF YOUR SYMPTOMS CHANGE SIGNIFICANTLY OR WORSEN OR YOU DEVELOP NEW SYMPTOMS, RETURN TO THE EMERGENCY DEPARTMENT IMMEDIATELY FOR RE-EVALUATION. OUR GOAL IS TO PROVIDE EXCELLENT MEDICAL CARE! WE HOPE THAT WE HAVE MET YOUR EXPECTATIONS DURING YOUR EMERGENCY DEPARTMENT VISIT AND THAT YOU FEEL YOU HAVE RECEIVED EXCELLENT CARE! Referrals: MARY BERMUDEZ FNP-C [Primary Care Provider] - 05/01/20
[2020-04-25] MEDS ORDERED: LIDOCAINE 2%/EPINEPHRINE INJ 20 ML VIAL INJ ONE (22:28)
--- NOTE | 2020-04-25 22:55 | RADIOLOGY REPORT (SQ) ---
INDICATION: head trauma. Pain post trauma COMPARISON: None CORRELATION: None TECHNIQUE: Noncontrast spiral axial CT images were obtained from the skull base to vertex. Noncontrast spiral axial CT imaging through the cervical spine with multiplanar reconstructions. This exam was performed according to our departmental dose-optimization program, which includes automated exposure control, adjustment of the mA and/or kV according to patient size and/or use of iterative reconstruction techniques. FINDINGS: BRAIN: There is no evidence of acute intracranial hemorrhage, midline shift, mass effect or mass lesion. An area of presumed encephalomalacia identified left occipital. There is volume loss associated with this low attenuation abnormality.. There is no evidence of acute large territory infarct. Ventricles and extracerebral spaces are within normal limits, for age. Superficial soft tissue injury to the galea right frontal. Vascular calcification The visualized paranasal sinuses demonstrate a small amount of fluid left sphenoid sinus.. The orbits and eyeballs are unremarkable. The mastoid air cells are clear. Skull base and calvarium appear intact. CERVICAL SPINE: No acute displaced fracture is identified of the cervical spine. Straightening of the normal cervical lordosis. Vertebral body heights are well-maintained. The uncovertebral joints and facets demonstrate age-appropriate osteoarthritis. Surrounding soft tissues of the neck are unremarkable. Thyroid is heterogeneous IMPRESSION: No acute intracranial process is identified. 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 No acute bony injury is seen to the cervical spine.
--- NOTE | 2020-04-25 22:57 | RADIOLOGY REPORT (SQ) ---
CLINICAL INDICATION: fall, knee pain. . TECHNIQUE: 4 view(s) were obtained of the left knee. COMPARISON: None. FINDINGS: No acute displaced fracture is identified of the knee. Alignment appears anatomic. Joint spaces are within normal limits for age. No significant joint effusion. Surrounding soft tissues are unremarkable. IMPRESSION: No evidence of acute displaced fracture of the knee.
--- NOTE | 2020-04-25 22:59 | RADIOLOGY REPORT (SQ) ---
CLINICAL INDICATION: fall, knee pain. . TECHNIQUE: 4 view(s) were obtained of the right knee. COMPARISON: None. FINDINGS: No acute displaced fracture is identified of the knee. Alignment appears anatomic. Joint spaces are within normal limits for age. No significant joint effusion. Surrounding soft tissues are unremarkable. IMPRESSION: No evidence of acute displaced fracture of the knee.
[2020-04-26 00:09] VITALS: BP 149/88
[2020-04-26] MEDS ORDERED: HYDROCODONE/ACETAMINOPHEN 5-325 MG (6 TAB/ER DISP) PO PRN (00:15)
== END 2020-04-26 00:36 | disposition home or self-care (01) ==
LOC: ER 21:39
DX: S01.81XA Laceration without foreign body of other part of head, initial encounter (principal); S80.02XA Contusion of left knee, initial encounter; S80.01XA Contusion of right knee, initial encounter; R51.9 Headache, unspecified; W10.9XXA Fall (on) (from) unspecified stairs and steps, initial encounter; Z23 Encounter for immunization; I10 Essential (primary) hypertension; Z88.0 Allergy status to penicillin; Z88.8 Allergy status to other drugs, medicaments and biological substances
CPT/HCPCS: 96376; 99285; 90471; 96374; 96375; 73564 ×2; 70450; 72125; 90715; 12002; J3490; J1170; J2405; A9270

== ENCOUNTER 2020-07-06 15:30 | Emergency (ER) | payer MEDICARE, MEDICAID ==
--- NOTE | 2020-07-06 16:05 | ER Document Report ---
ED Medical Screen (RME) - General Chief Complaint: Abdominal Pain Stated Complaint: ABDOMINAL PAIN Time Seen by Provider: 07/06/20 15:59 Primary Care Provider: MARY BEMRUDEZ FNP-C [Primary Care Provider] - Follow up as needed TRAVEL OUTSIDE OF THE [place] IN LAST 30 DAYS: No - HPI Notes: Patient is a 65-year-old female with a history of diverticulitis and HTN who presents with left lower quadrant pain. Patient states the pain began around noon today and feels like her classic diverticular pain. She denies nausea, vomiting, diarrhea, rectal bleeding, fever, chest pain, shortness of breath. She has not taken any medication today for the pain. - Related Data Allergies/Adverse Reactions: codeine [Codeine] Allergy (Intermediate, Verified 04/25/20 21:53) HIVES AND BAD MUSCLE SPASMS Penicillins Allergy (Intermediate, Verified 04/25/20 21:53) HIVES AND BAD MUSCLE SPASMS Past Medical History - Past Medical History Cardiac Medical History: Reports: Hx Hypertension Denies: Hx Congestive Heart Failure, Hx Coronary Artery Disease, Hx Heart Attack Pulmonary Medical History: Denies: Hx Asthma, Hx Bronchitis, Hx COPD, Hx Pneumonia Neurological Medical History: Denies: Hx Cerebrovascular Accident, Hx Seizures Renal/ Medical History: Reports: Hx Renal Insufficiency. Denies: Hx Peritoneal Dialysis GI Medical History: Reports: Hx Diverticulitis - Treated at a hospital in [place], [place] last year Musculoskeltal Medical History: Denies Hx Arthritis, Reports Hx Musculoskeletal Trauma Psychiatric Medical History: Reports: Hx Anxiety, Hx Attention Deficit Hyperactivity Disorder, Hx Depression Past Surgical History: Reports: Hx Abdominal Surgery - gastric bypass, Hx Breast Surgery - reduction, Hx Cholecystectomy, Hx Gastric Bypass Surgery, Other - Breast reduction - Immunizations Immunizations up to date: No Hx Diphtheria, Pertussis, Tetanus Vaccination: No Physical Exam - Vital signs Vitals: Temp Pulse Resp BP Pulse Ox 98.2 F 99 20 114/66 98 07/06/20 15:36 07/06/20 15:36 07/06/20 15:36 07/06/20 15:36 07/06/20 15:36 - Abdominal Distension: No distension Bowel sounds: Normal Tenderness: Tender - LLQ Notes: Exam limited due to seated position in triage. Course - Re-evaluation Re-evalutation: I have greeted and performed a rapid initial assessment of this patient. A comprehensive ED assessment and evaluation of the patient, analysis of test results and completion of medical decision making process will be conducted by an additional ED providers. - Vital Signs Vital signs: Temp Pulse Resp BP Pulse Ox 98.2 F 99 20 114/66 98 07/06/20 15:36 07/06/20 15:36 07/06/20 15:36 07/06/20 15:36 07/06/20 15:36 Doctor's Discharge - Discharge Referrals: MARY BERMUDEZ, BIOLOGICAL PLANT OPERATOR-C [Primary Care Provider] - Follow up as needed
[2020-07-06 16:37] LABS: ABSOLUTE EOSINOPHILS # (AUTO) 0.1 10^3/uL (0.0-0.6); ABSOLUTE LYMPHOCYTES (AUTO) 1.6 10^3/uL (0.5-4.7); ABSOLUTE MONOCYTES (AUTO) 0.6 10^3/uL (0.1-1.4); ABSOLUTE NEUT (AUTO) 6.5 10^3/uL (1.7-8.2); BASOPHILS % (AUTO) 0.3 % (0-2); EOSINOPHILS % (AUTO) 1.3 % (0-6); HEMATOCRIT 36.7 % (36.0-47.0); HEMOGLOBIN 12.4 g/dL (12.0-15.5); LYMPHOCYTES % (AUTO) 17.8 % (13-45); MEAN CORPUSCULAR HEMOGLOBIN 28.4 pg (27.0-33.4); MEAN CORPUSCULAR HGB CONC 33.6 g/dL (32.0-36.0); MEAN CORPUSCULAR VOLUME 85 fl (80-97); MONOCYTES % (AUTO) 6.7 % (3-13); PLATELET COUNT 281 10^3/uL (150-450); RED BLOOD COUNT 4.35 10^6/uL (3.72-5.28); RED CELL DISTRIBUTION WIDTH 13.8 % (11.5-14.0); SEGMENTED NEUTROPHILS % (AUTO) 73.9 % (42-78); TOTAL CELLS COUNTED % (AUTO) 100 %; WHITE BLOOD COUNT 8.8 10^3/uL (4.0-10.5)
[2020-07-06 16:54] LABS: BLOOD UREA NITROGEN 26 mg/dL (7-20); CALCIUM 10.1 mg/dL (8.4-10.2); GLUCOSE 124 mg/dL (75-110)
[2020-07-06 16:55] LABS: ALBUMIN 3.9 g/dL (3.5-5.0); ALKALINE PHOSPHATASE 186 U/L (38-126); ANION GAP 5 (5-19); ASPARTATE AMINO TRANSFERASE 26 U/L (14-36); BILIRUBIN,DIRECT 0.3 mg/dL (0.0-0.4); BILIRUBIN,TOTAL 0.7 mg/dL (0.2-1.3); CARBON DIOXIDE 28 mmol/L (22-30); CHLORIDE 100 mmol/L (98-107); TOTAL PROTEIN 6.8 g/dL (6.3-8.2)
[2020-07-06 18:09] LABS: APPEARANCE,URINE SLIGHTLY-CLOUDY; BILIRUBIN,URINE NEGATIVE (NEGATIVE); COLOR,URINE YELLOW; GLUCOSE, URINE NEGATIVE (NEGATIVE); KETONES,URINE NEGATIVE (NEGATIVE); LEUKOCYTE ESTERASE,URINE SMALL (NEGATIVE); NITRITE,URINE POSITIVE (NEGATIVE); PROTEIN,URINE NEGATIVE (NEGATIVE); UROBILINOGEN,URINE NEGATIVE mg/dL (<2.0)
--- NOTE | 2020-07-06 19:03 | RADIOLOGY REPORT (SQ) ---
EXAM DESCRIPTION: CT ABD/PELVIS NO ORAL OR IV IMAGES COMPLETED DATE/TIME: 07/06/2020 6:45 pm REASON FOR STUDY: LLQ pain COMPARISON: 04/07/2020 TECHNIQUE: CT scan of the abdomen and pelvis performed without intravenous or oral contrast. Images reviewed with lung, soft tissue, and bone windows. Reconstructed coronal and sagittal MPR images revi ewed. All images stored on PACS. All CT scanners at this facility use dose modulation, iterative reconstruction, and/or weight based d osing when appropriate to reduce radiation dose to as low as reasonably achievable (ALARA). [facility]: Dose Right [facility]: CareDose [facility]: Dose Right [facility]: Teradose 4D [facility]: [employer] RADIATION DOSE: CT Rad equipment meets quality standard of care and radiation dose reduction techniq ues were employed. CTDIvol: 14.4 mGy. DLP: 841 mGy-cm.mGy. LIMITATIONS: None. FINDINGS: LOWER CHEST: No significant findings. No nodules or infiltrates. NON-CONTRASTED LIVER, SPLEEN, ADRENALS: Evaluation limited by lack of IV contrast. No identified sign ificant masses. PANCREAS: No masses. No peripancreatic inflammatory changes. GALLBLADDER: Surgically absent. RIGHT KIDNEY AND URETER: No suspicious masses. Assessment limited by lack of IV contrast. No signif icant calcifications. No hydronephrosis or hydroureter. LEFT KIDNEY AND URETER: No suspicious masses. Assessment limited by lack of IV contrast. No signifi cant calcifications. No hydronephrosis or hydroureter. AORTA AND RETROPERITONEUM: No aneurysm. No retroperitoneal masses or adenopathy. BOWEL AND PERITONEAL CAVITY: Diverticulosis. Pericolic stranding around the upper sigmoid colon with mild thickening of the bowel wall. No abscess. No significant perforation is evident. APPENDIX: Normal. PELVIS, BLADDER, AND ABDOMINAL WALL:No abnormal masses. No free fluid. Bladder normal. BONES: No significant findings. OTHER: No other significant finding. IMPRESSION: Sigmoid diverticulitis with no evidence of abscess or significant perforation. COMMENT: Quality ID # [id number]: Final reports with documentation of one or more dose reduction techniques (e.g., Automated exposure control, adjustment of the mA and/or kV according to patient size, use of iterative reconstruction technique) TECHNICAL DOCUMENTATION: JOB ID: [id number] 2010 [employer] All Rights Reserved Reading location - IP/workstation name: [email or web address]
[2020-07-06] MEDS ORDERED: CIPROFLOXACIN HCL 500 MG TABLET PO ONE (19:05)
[2020-07-06] MEDS ORDERED: METRONIDAZOLE 500 MG TABLET PO ONE (19:06)
[2020-07-06] MEDS ORDERED: MORPHINE SULFATE 10 MG/ML INJ IM ONE (19:25)
--- NOTE | 2020-07-06 19:32 | ER Document Report ---
ED General - General Chief Complaint: Abdominal Pain Stated Complaint: ABDOMINAL PAIN Time Seen by Provider: 07/06/20 15:59 Primary Care Provider: MARY BERMUDEZ FNP-C [Primary Care Provider] - Follow up as needed TRAVEL OUTSIDE OF THE [place] IN LAST 30 DAYS: No - HPI Notes: Patient is a 65-year-old female presents emergency department for evaluation of left lower quadrant pain. It started around noon today. She states it feels similar to her diverticulitis. It is sharp and stabbing. She denies any fevers or chills. No cough or shortness of breath. No nausea, no vomiting, no diarrhea. She denies any dysuria, hematuria, urinary frequency. - Related Data Allergies/Adverse Reactions: codeine [Codeine] Allergy (Intermediate, Verified 04/25/20 21:53) HIVES AND BAD MUSCLE SPASMS Penicillins Allergy (Intermediate, Verified 04/25/20 21:53) HIVES AND BAD MUSCLE SPASMS Home Medications: lisinopril. metoprolol Past Medical History - General Information source: Patient - Social History Smoking Status: Never Smoker Chew tobacco use (# tins/day): No Frequency of alcohol use: None Drug Abuse: None Family History: None, CAD, CVA, DM, Hyperlipidemia, Hypertension, Malignancy - Past Medical History Cardiac Medical History: Reports: Hx Hypertension Denies: Hx Congestive Heart Failure, Hx Coronary Artery Disease, Hx Heart Attack Pulmonary Medical History: Denies: Hx Asthma, Hx Bronchitis, Hx COPD, Hx Pneumonia Neurological Medical History: Reports: Hx Cerebrovascular Accident. Denies: Hx Seizures Renal/ Medical History: Reports: Hx Renal Insufficiency. Denies: Hx Peritoneal Dialysis GI Medical History: Reports: Hx Diverticulitis - Treated at a hospital in [place], [place] last year Musculoskeletal Medical History: Denies Hx Arthritis, Reports Hx Musculoskeletal Trauma Psychiatric Medical History: Reports: Hx Anxiety, Hx Attention Deficit Hyperactivity Disorder, Hx Depression Past Surgical History: Reports: Hx Abdominal Surgery - gastric bypass, Hx Breast Surgery - reduction, Hx Cholecystectomy, Hx Gastric Bypass Surgery, Other - Breast reduction - Immunizations Immunizations up to date: No Hx Diphtheria, Pertussis, Tetanus Vaccination: No Review of Systems - Review of Systems Constitutional: No symptoms reported EENT: No symptoms reported Cardiovascular: No symptoms reported Respiratory: No symptoms reported Gastrointestinal: See HPI Genitourinary: No symptoms reported Musculoskeletal: No symptoms reported Skin: No symptoms reported Neurological/Psychological: No symptoms reported Physical Exam - Vital signs Vitals: Temp Pulse Resp BP Pulse Ox 98.2 F 99 20 114/66 98 07/06/20 15:36 07/06/20 15:36 07/06/20 15:36 07/06/20 15:36 07/06/20 15:36 - Notes Notes: Vital signs reviewed, please refer to chart. Head is normocephalic, atraumatic. Pupils equal round, reactive to light. Oral mucosa moist. Patient is edentulous. Neck is supple without meningismus. Heart is regular rate and rhythm. Lungs are clear to auscultation bilaterally. Abdomen is soft, moderately tender in the left lower quadrant without rebound or guarding, normoactive bowel sounds throughout. Extremities without cyanosis, clubbing. Posterior calves are nontender. Peripheral pulses are equal. Skin is warm and dry. Patient is awake, alert, neurological exam is nonfocal. Course - Re-evaluation Re-evalutation: 07/06/20 19:27 Patient presents to the emergency department for evaluation. She complains of abdominal pain that is similar to when she had acute diverticulitis in the past. Her CT scan is consistent with that. Her laboratory investigations showed an normal white blood cell count. She has mild renal insufficiency, with a mild worsening from baseline. She stated that she thought she had normal kidney function. I told her that she should probably be referred on to nephrology for follow-up. She was given a dose of Cipro and Flagyl here. I will send her home with the same. Her urine was nitrite positive, this was sent for culture. The patient denies any urinary symptoms. Likely, it is likely that the Cipro will cover any urinary pathogens. Culture follow-up will be performed. The patient asked for something for pain, she is given IM morphine here. She is told to take Tylenol at home. She is to return to the ED with worsening or new concerning symptoms of any sort. - Vital Signs Vital signs: Temp Pulse Resp BP Pulse Ox 98.2 F 99 20 114/66 98 07/06/20 15:36 07/06/20 15:36 07/06/20 15:36 07/06/20 15:36 07/06/20 15:36 - Laboratory Results Result Diagrams: 07/06/20 16:17 07/06/20 16:17 Laboratory Results Interpreted: 07/06/20 07/06/20 16:17 17:39 Sodium 132.7 L BUN 26 H Creatinine 1.89 H Est GFR ( Amer) 32 L Est GFR (MDRD) Non-Af 27 L Glucose 124 H Alkaline Phosphatase 186 H Urine Nitrite POSITIVE H Ur Leukocyte Esterase SMALL H Critical Laboratory Results Reviewed: No Critical Results - Radiology Results Radiology Results Interpreted: 07/06/20 19:28 Abdomen/Pelvis CT 07/06/20 16:08 IMPRESSION: Sigmoid diverticulitis with no evidence of abscess or significant perforation. Critical Radiology Results Reviewed: No Critical Results Discharge - Discharge Clinical Impression: Sigmoid diverticulitis, Abnormal renal function Condition: Stable Disposition: HOME, SELF-CARE Instructions: Abdominal Pain ([facility]), Low Residue Diet ([facility]), Diverticulitis ([facility]), Ciprofloxacin ([facility]), Metronidazole ([facility]), Kidney Function Abnormality ([facility]) Additional Instructions: Your kidney function is abnormal. You should discuss possible referral on to nephrology with your primary care provider. Your findings today are consistent with diverticulitis. Please take the antibiotics exactly as directed until they are gone. If you develop increased pain, fevers, vomiting, or any other new or concerning symptoms, please return immediately to the emergency department for evaluation. Prescriptions: Ciprofloxacin HCl [Cipro] 250 mg PO BID #7 tablet Metronidazole [Flagyl] 500 mg PO TID #20 tablet Referrals: MARY BERMUDEZ FNP-C [Primary Care Provider] - Follow up as needed
[2020-07-06 20:27] VITALS: BP 140/85
== END 2020-07-06 20:00 | disposition home or self-care (01) ==
LOC: ER 15:30
DX: K57.32 Diverticulitis of large intestine without perforation or abscess without bleeding (principal); R94.4 Abnormal results of kidney function studies; R10.32 Left lower quadrant pain; I10 Essential (primary) hypertension; Z88.6 Allergy status to analgesic agent; Z88.0 Allergy status to penicillin
CPT/HCPCS: 99285; 96372; 36415; 87086; 83690; 85025; 87088; 80053; 81001; 74176; A9270 ×2; J2270; 87186